=== PATIENT | male | born 1965 | race Caucasian/White ===

== ENCOUNTER → 2018-02-04 11:59 | Outpatient (CLI) | payer OTHER, SELFPAY ==
[2018-02-04 12:39] LABS: Hemoglobin A1C% w Est Avg Glu 6.4 % (4.0-6.0)
== END ==
PROVIDERS: Family Provider Physical Medicine & Rehabilitation; PCP Physical Medicine & Rehabilitation; Visit Provider Physical Medicine & Rehabilitation
DX: E11.9 Type 2 diabetes mellitus without complications (principal)
CPT/HCPCS: 36415; 83036

== ENCOUNTER → 2018-05-24 07:57 | Outpatient (CLI) | payer OTHER, SELFPAY ==
--- NOTE | 2018-05-24 | DI.CT.S_ITS ---
PROCEDURE: CT CERVICAL SPINE WO CON INDICATIONS: NECK PAIN TECHNIQUE: Noncontrast 3 mm thick sections acquired from the skull base to the T4 level. Sagittal and coronal reformats were then constructed. For radiation dose reduction, the following was used: automated exposure control, adjustment of mA and/or kV according to patient size. COMPARISON: [facility], CT, C-SPINE WITH CONTRAST, 08/14/2016, 10:34. [facility], CT, C-SPINE WITHOUT CONTRAST, 06/18/2010, 10:46. [facility], CR, CERVICAL SPINE 4 OR 5 VIEWS, 07/07/2013, 10:12. [facility], CT, C-SPINE WITHOUT CONTRAST, 11/04/2015, 15:49. FINDINGS: Image quality: Excellent. Bones: No acute fractures or dislocations. Visualized superior ribs are intact. There is again seen anterior fixation hardware at the C6-C7 level. The fusion hardware is stable, without findings of failure or loosening. There is a disc spacer seen at C6-C7. There is a stable calcified/ossified focus again seen superior to the tip of the dens, which is attributed to remote trauma versus calcified soft tissues. Partially bridging anterior osteophytes are seen at C4-C5 and there are bridging anterior osteophyte at C5-C6. At C6-C7, there are posterior directed endplate osteophytes seen, as on series 2 image 45, with moderate central canal narrowing. Soft tissues: Prevertebral soft tissues are normal in thickness. No paravertebral hematomas. No apical pneumothoraces. IMPRESSION: Postoperative and degenerative changes are seen, which are similar to the prior CT. Dictated by: Mayank Fortune M.D. on 05/24/2018 at 8:33 Approved by: Mayank Fortune M.D. on 05/24/2018 at 8:41
== END ==
PROVIDERS: PCP Physical Medicine & Rehabilitation; Visit Provider Orthopaedic Surgery
DX: M54.2 Cervicalgia (principal); Z98.1 Arthrodesis status
CPT/HCPCS: 72125

== ENCOUNTER 2019-04-19 09:00 | Outpatient (RCR) | payer OTHER, SELFPAY ==
--- NOTE | 2018-10-05 16:49 | PT.OIE ---
Addendum entered and electronically signed by Kinjal Lopez, LATANYA 10/06/18 08:43: Late entry for 10/04/18 evaluation Original Note: Current Diagnoses Arthrodesis status (10/05/18) Provider Visit Care Team Role Provider Type Briseida Dominguez MD Attending Provider Physician Primary Care Provider Specialty: Physical Medicine and Rehab Address: [address] [place] [address], [id number] Email: Physical Therapy Initial Evaluation PT-OP-A Visit Information Start: 10/04/18 08:08 Freq: Status: Active Protocol: Document 10/04/18 11:20 [facility] (Rec: 10/04/18 11:54 [facility] [id number]) Out-Patient Physical Therapy Visit Information Visit Information Visit Type Initial Evaluation Visit Start Time 11:20 Visit Stop Time 12:10 Total Visit Minutes 50 Visit Number 1 Number of METALLURGICAL SPECIALIST Visits 0 Evaluation Information Evaluation Date 10/04/18 Precautions Precautions c/s fusion high irritability of symptoms PT-OP-B Current Condition Start: 10/04/18 08:08 Freq: Status: Active Protocol: Document 10/04/18 11:20 SAK (Rec: 10/04/18 11:54 [facility]AK [id number]) Current Condition History of Current Condition Onset Date 06/28/18 Current Complaints neck pain, weakness, activity intolerance History of Current Condition L and I claim injury date 10/23. Prior cervical spine fusion. On 06/28/18 removal of hardware C6-7 and fusion of C5-6. X-ray 09/30/18 showed good healing. Order for physical therapy 08/09/18, not seen until today due to insurance approval miscommunication. Prescription is for ROM to torso, pecs, shoulders, cervical spine as able, then strengthen. Reports unable to tolerate wearing cervical brace. Dysphagia issues since surgery , seeing ENT. Improved sensation in left hand since the surgery, previously numb. Patient reports since surgery with any exacerbation of pain he requires less time to decrease the symptoms. States has been doing some exercises recently at the pool : LE's only. Precautions; patient reports physician advised he use snorkel for any swimming, no other restrictions. Additionally reports TMJ injury sustained from [facility]NA[facility] eval prior to his surgery, not yet being treated for this injury. Treatment Goals Patient/Caregiver Goals Realistic exercise plan to continue after PT, know limitations. Prior Functional Status Baseline Function- ADL's Independent Baseline Function- Mobility Independent Baseline Function- Gait indep Personal Factors Other Personal Factors That May Effect DM, ESPINOSA, EYAK, jaw pain, memory Therapy/Recovery loss, TBI PT-OP-C Subjective Start: 10/04/18 08:08 Freq: Status: Active Protocol: Document 10/04/18 11:20 [facility] (Rec: 10/04/18 15:11 [facility] [id number]) Patient Questionnaires Neck Disability Index NDI Score 56 Neck Disability Index Impairment 40 to 59% Impaired (Score 20- 29) Quick Dash- Upper Extremity Quick Dash UE Score 61 Quick Dash UE Impairment 60 to 79% Impaired (Score 60- 79) PT-OP-G Mobility & Gait Start: 10/04/18 08:08 Freq: Status: Active Protocol: Document 10/04/18 11:20 [facility]AK (Rec: 10/04/18 15:11 [facility] [id number]) OP Gait Assessment Gait Gait Assistance Required: Independent Factors Limiting Gait Function Factors Limiting Gait Function Pain Comments Gait Comments Able to ambulate household and short community distances, requires frequent rest due to back pain. PT-OP-J Posture/Palpation/Skin Start: 10/04/18 08:08 Freq: Status: Active Protocol: Document 10/04/18 11:20 [facility] (Rec: 10/04/18 15:11 [facility] [id number]) Posture Evaluation Position Sitting Head/C-Spine Posture Forward Head T-Spine Posture Increased Kyphosis Shoulder Posture (R) Rounded (L) Forward Scapula Posture (L) Protracted (R) Protracted Arm Posture (L) Internally Rotated (R) Internally Rotated Comments Posture Comments mod Dowager's hump Palpation Assessment Location One Palpation Location upper traps, levator scap, subocciptal, rhomboids Palpation Findings Soft Tissue Tightness Muscle Guarding Tenderness Skin Assessment Incisional Assessment Incision Appearance/Comments well healed anterior neck with good scar mobility; patient reports he massages with oil every day. PT-OP-K Range of Motion Start: 10/04/18 08:08 Freq: Status: Active Protocol: Document 10/04/18 11:20 [facility]AK (Rec: 10/04/18 15:12 [facility] [id number]) Cervical Spine Range of Motion Cervical Spine Active Testing Position Sitting Flexion 25 Extension 8 Rotation Left 40 Rotation Right 37 Lateral Flexion Left 18 Lateral Flexion Right 24 ROM Limitations Soft Tissue Tightness Pain Shoulder Goniometric Range of Motion Shoulder Measured in Degrees Left Testing Position Sitting Internal Rotation Behind Back (text) lateral hip Right Shoulder ROM WFL Yes Testing Position Sitting Shoulder ROM Limitations Shoulder ROM Limitations Soft Tissue Tightness Pain PT-OP-M Strength Start: 10/04/18 08:08 Freq: Status: Active Protocol: Document 10/04/18 11:20 [facility] (Rec: 10/05/18 08:57 [facility] [id number]) Cervical Spine Strength Cervical Spine Manual Muscle Testing Reason Not Measured Orthopedic Precautions Pain Scapula Strength Scapula Manual Muscle Testing rupert Elevation (C4) 4- Good- Adduction 4- Good- Abduction 4- Good- Depression 4- Good- Shoulder Strength Shoulder Manual Muscle Testing rupert Reason Not Measured Orthopedic Precautions Elbow/Forearm Strength Elbow and Forearm Manual Muscle Testing rupert Flexion (C6) 4 Good Extension (C7) 4 Good PT-OP-Q Treatments Start: 10/04/18 08:08 Freq: Status: Active Protocol: Document 10/04/18 11:20 [facility] (Rec: 10/05/18 08:57 [facility] [id number]) Self-Care/Home Management Treatment Education Patient Education Home Exercise Program Other Education written program PT-OP-R Modalities Start: 10/04/18 08:08 Freq: Status: Active Protocol: Document 10/04/18 11:20 [facility] (Rec: 10/05/18 08:57 [facility] [id number]) Hot Pack/Cold Pack Treatment Cold Pack Location c/s Patient Position Hooklying Treatment Duration (minutes) 10 Patient Tolerance Good PT-OP-T Assessment and Plan Start: 10/04/18 08:08 Freq: Status: Active Protocol: Document 10/04/18 11:20 [facility] (Rec: 10/05/18 08:57 [facility] [id number]) Physical Therapy Assessment Rehab Potential Rehabilitation Potential Good Evaluation Complexity Number of Personal Factors/Comorbidities 3 or More Number of Body Systems Impaired 3 Clinical Presentation at Evaluation Evolving Impairments Impairments Activity Tolerance Pain Posture ROM Strength Other Concerns Barriers to Rehabilitation chronicity of pain Goals 5 Impairment postural dysfunction Short Term Goal (STG) Patient to be instructed in neutral postural alignment and body mechancis STG Duration 6 wks Snf Goal (LTG) Patient to demonstrate good understanding of posture and body mechanics principles for neck protection and optimal function in the home with ADL' s and with usual activities. LTG Duration 3 months 4 Impairment ROM and strength impairments in neck and shoulders Short Term Goal (STG) Instruct patient in aquatic exercise program and HEP STG Duration 6 wks Snf Goal (LTG) Patient will be independent with HEP and community-based exercise program LTG Duration 3 months 3 Impairment activity tolerance Short Term Goal (STG) Patient able to tolerate 45 min aquatic exercise program without an increase in pain for purposes of long-term pain management and fitness STG Duration 6 wks Treasury Representative Goal (LTG) Patient will be able to tolerate 45 min land-based exercise session with emphasis on postural correction, ROM, and strengthening without an increase in pain for purposes of long-term fitness and pain managment LTG Duration 3 months 2 Impairment Neck disability index score 56 % Short Term Goal (STG) Decrease disability index score to no greater than 35% STG Duration 6 wks Snf Goal (LTG) Decrease disability index score to no greater than 20% LTG Duration 3 months 1 Impairment neck pain Snf Goal (LTG) Pain no greater than 2/10 with usual activities LTG Duration 3 months Assessment Summary Assessment Patient presents s/p cervical spine fusion with decreased ROM and strength, activity intolerance, postural dysfunction, and pain. He is highly motivated to begin therapy and achieve the above goals and return to a more active lifestyle. He will benefit from both aquatic and land-based PT to help him improve his ROM, strength, posture, and overall activity tolerance and be independent in exercise program. Physical Therapy Plan Frequency and Duration Frequency of Treatment 2x/Week Duration of Treatment 2 months Plan of Care Start Date 10/04/18 Plan of Care End Date 12/04/18 Therapeutic Interventions Therapeutic Interventions Aquatic Therapy Home Exercise Program Manual Therapy Neuromuscular Re-education Patient/Caregiver Education Self-Care/Home Management Soft Tissue Mobilization Therapeutic Activities Therapeutic Exercises Modalities Cold Pack/Ice Massage Electric Stimulation Hot Packs Next Visit Focus/Plan Next Note Type Treatment Note Next Visit Plan Initiate aquatic therapy.
--- NOTE | 2018-10-06 08:39 | PT.OTN ---
Addendum entered and electronically signed by Kinjal Lopez, PT 10/06/18 08:42: Late entry for 10/05/18 Original Note: Current Diagnoses Arthrodesis status (10/05/18) Physical Therapy Treatment Note PT-OP-A Visit Information Start: 10/04/18 08:08 Freq: Status: Active Protocol: Document 10/04/18 11:20 [facility] (Rec: 10/04/18 11:54 [facility] [id number]) Out-Patient Physical Therapy Visit Information Visit Information Visit Type Initial Evaluation Visit Start Time 11:20 Visit Stop Time 12:10 Total Visit Minutes 50 Visit Number 1 Number of PHYSICAL THERAPY AIDES TEACHER Visits 0 Evaluation Information Evaluation Date 10/04/18 Precautions Precautions c/s fusion high irritability of symptoms PT-OP-B Current Condition Start: 10/04/18 08:08 Freq: Status: Active Protocol: Document 10/04/18 11:20 [facility]AK (Rec: 10/04/18 11:54 [facility] [id number]) Current Condition History of Current Condition Onset Date 06/28/18 Current Complaints neck pain, weakness, activity intolerance History of Current Condition L and I claim injury date 10/23. Prior cervical spine fusion. On 06/28/18 removal of hardware C6-7 and fusion of C5-6. X-ray 09/30/18 showed good healing. Order for physical therapy 08/09/18, not seen until today due to insurance approval miscommunication. Prescription is for ROM to torso, pecs, shoulders, cervical spine as able, then strengthen. Reports unable to tolerate wearing cervical brace. Dysphagia issues since surgery , seeing ENT. Improved sensation in left hand since the surgery, previously numb. Patient reports since surgery with any exacerbation of pain he requires less time to decrease the symptoms. States has been doing some exercises recently at the pool : LE's only. Precautions; patient reports physician advised he use snorkel for any swimming, no other restrictions. Additionally reports TMJ injury sustained from [facility] eval prior to his surgery, not yet being treated for this injury. Treatment Goals Patient/Caregiver Goals Realistic exercise plan to continue after PT, know limitations. Prior Functional Status Baseline Function- ADL's Independent Baseline Function- Mobility Independent Baseline Function- Gait indep Personal Factors Other Personal Factors That May Effect DM, ESPINOSA, [place] CHIN, jaw pain, memory Therapy/Recovery loss, TBI PT-OP-C Subjective Start: 10/04/18 08:08 Freq: Status: Active Protocol: Document 10/04/18 11:20 [facility] (Rec: 10/04/18 15:11 [facility] [id number]) Patient Questionnaires Neck Disability Index NDI Score 56 Neck Disability Index Impairment 40 to 59% Impaired (Score 20- 29) Quick Dash- Upper Extremity Quick Dash UE Score 61 Quick Dash UE Impairment 60 to 79% Impaired (Score 60- 79) PT-OP-G Mobility & Gait Start: 10/04/18 08:08 Freq: Status: Active Protocol: Document 10/04/18 11:20 [facility] (Rec: 10/04/18 15:11 [facility] [id number]) OP Gait Assessment Gait Gait Assistance Required: Independent Factors Limiting Gait Function Factors Limiting Gait Function Pain Comments Gait Comments Able to ambulate household and short community distances, requires frequent rest due to back pain. PT-OP-J Posture/Palpation/Skin Start: 10/04/18 08:08 Freq: Status: Active Protocol: Document 10/04/18 11:20 [facility] (Rec: 10/04/18 15:11 [facility] [id number]) Posture Evaluation Position Sitting Head/C-Spine Posture Forward Head T-Spine Posture Increased Kyphosis Shoulder Posture (R) Rounded (L) Forward Scapula Posture (L) Protracted (R) Protracted Arm Posture (L) Internally Rotated (R) Internally Rotated Comments Posture Comments mod Dowager's hump Palpation Assessment Location One Palpation Location upper traps, levator scap, subocciptal, rhomboids Palpation Findings Soft Tissue Tightness Muscle Guarding Tenderness Skin Assessment Incisional Assessment Incision Appearance/Comments well healed anterior neck with good scar mobility; patient reports he massages with oil every day. PT-OP-K Range of Motion Start: 10/04/18 08:08 Freq: Status: Active Protocol: Document 10/04/18 11:20 [facility] (Rec: 10/04/18 15:12 [facility] [id number]) Cervical Spine Range of Motion Cervical Spine Active Testing Position Sitting Flexion 25 Extension 8 Rotation Left 40 Rotation Right 37 Lateral Flexion Left 18 Lateral Flexion Right 24 ROM Limitations Soft Tissue Tightness Pain Shoulder Goniometric Range of Motion Shoulder Measured in Degrees Left Testing Position Sitting Internal Rotation Behind Back (text) lateral hip Right Shoulder ROM WFL Yes Testing Position Sitting Shoulder ROM Limitations Shoulder ROM Limitations Soft Tissue Tightness Pain PT-OP-M Strength Start: 10/04/18 08:08 Freq: Status: Active Protocol: Document 10/04/18 11:20 [facility] (Rec: 10/05/18 08:57 [facility] [id number]) Cervical Spine Strength Cervical Spine Manual Muscle Testing Reason Not Measured Orthopedic Precautions Pain Scapula Strength Scapula Manual Muscle Testing rupert Elevation (C4) 4- Good- Adduction 4- Good- Abduction 4- Good- Depression 4- Good- Shoulder Strength Shoulder Manual Muscle Testing rupert Reason Not Measured Orthopedic Precautions Elbow/Forearm Strength Elbow and Forearm Manual Muscle Testing rupert Flexion (C6) 4 Good Extension (C7) 4 Good PT-OP-Q Treatments Start: 10/04/18 08:08 Freq: Status: Active Protocol: Document 10/04/18 11:20 [facility] (Rec: 10/05/18 08:57 [facility] [id number]) Self-Care/Home Management Treatment Education Patient Education Home Exercise Program Other Education written program PT-OP-R Modalities Start: 10/04/18 08:08 Freq: Status: Active Protocol: Document 10/04/18 11:20 [facility] (Rec: 10/05/18 08:57 [facility] [id number]) Hot Pack/Cold Pack Treatment Cold Pack Location c/s Patient Position Hooklying Treatment Duration (minutes) 10 Patient Tolerance Good PT-OP-S Aquatic Treatment Start: 10/04/18 08:08 Freq: Status: Active Protocol: Document 10/06/18 08:31 [facility] (Rec: 10/06/18 08:38 [facility] [id number]) Aquatics Treatment Pool Entry/Exit Assistance Independent Water Walking september with opp knee touch Water Level Neck Level Level of Assistance Verbal Cues sideways with shld ab/ad Water Level Neck Level Level of Assistance Verbal Cues Backward walking with reverse breastroke UE's Water Level Neck Level Level of Assistance Verbal Cues forward with breastroke UE's Water Level Neck Level Level of Assistance Verbal Cues Upper Extremity Exercises shld circles Reps/Duration 10x2 Comments CW, CCW shld flex/ext Reps/Duration 10x hor ab/ad Water Level Neck Level Reps/Duration 10x Upper Extremity Stretches corner stretch Body Position Standing Water Level Chest Level Reps/Duration 2x Spinal Exercises cervical SB Body Position Standing Water Level Neck Level Reps/Duration 5x Comments painfree ROM cervical rotation Body Position Standing Equipment Neck Float Reps/Duration 5x Comments painfree ROM [place] Activities [place] Activities Bicycle Comments minimal UE use Swim Strokes supine flutter with gentle UE sculling Laps/Duration 5 min Comments slow Manual Techniques Aquatic Massage cervical spine, periscapular area, UT: supine with small noodle under LE's PT-OP-T Assessment and Plan Start: 10/04/18 08:08 Freq: Status: Active Protocol: Document 10/06/18 08:31 [facility] (Rec: 10/06/18 08:38 [facility] [id number]) Physical Therapy Assessment Rehab Potential Rehabilitation Potential Good Evaluation Complexity Number of Personal Factors/Comorbidities 3 or More Number of Body Systems Impaired 3 Clinical Presentation at Evaluation Evolving Impairments Impairments Activity Tolerance Pain Posture ROM Strength Other Concerns Barriers to Rehabilitation chronicity of pain Goals 5 Impairment postural dysfunction Short Term Goal (STG) Patient to be instructed in neutral postural alignment and body mechancis STG Duration 6 wks Care Home Goal (LTG) Patient to demonstrate good understanding of posture and body mechanics principles for neck protection and optimal function in the home with ADL' s and with usual activities. LTG Duration 3 months 4 Impairment ROM and strength impairments in neck and shoulders Short Term Goal (STG) Instruct patient in aquatic exercise program and HEP STG Duration 6 wks Oil Spraying Machine Operator Goal (LTG) Patient will be independent with HEP and community-based exercise program LTG Duration 3 months 3 Impairment activity tolerance Short Term Goal (STG) Patient able to tolerate 45 min aquatic exercise program without an increase in pain for purposes of long-term pain management and fitness STG Duration 6 wks Care Home Goal (LTG) Patient will be able to tolerate 45 min land-based exercise session with emphasis on postural correction, ROM, and strengthening without an increase in pain for purposes of long-term fitness and pain managment LTG Duration 3 months 2 Impairment Neck disability index score 56 % Short Term Goal (STG) Decrease disability index score to no greater than 35% STG Duration 6 wks Care Home Goal (LTG) Decrease disability index score to no greater than 20% LTG Duration 3 months 1 Impairment neck pain Care Home Goal (LTG) Pain no greater than 2/10 with usual activities LTG Duration 3 months Assessment Summary Assessment Patient requires mod cues for postural alignment and stab, cues to stay within pain-free ROM with gentle cervical spine ROM. UE's fatigued rapidly. Physical Therapy Plan Next Visit Focus/Plan Next Visit Plan ASsess response to first aquatic PT session, add rhythmic stabilization, prone crawl arms in water if obtains snorkel, water walk holding float posterior for anerior chest and cervical postural stretch. Progress with aquatic ex as tolerated with emphasis on postural stabilization
--- NOTE | 2018-10-07 14:24 | PT.OTN ---
Current Diagnoses Arthrodesis status (10/05/18) Physical Therapy Treatment Note PT-OP-A Visit Information Start: 10/04/18 08:08 Freq: Status: Active Protocol: Document 10/07/18 14:18 [facility] (Rec: 10/07/18 14:24 [facility] [id number]) Out-Patient Physical Therapy Visit Information Visit Information Visit Type Aquatic Treatment Note Visit Start Time 10:15 Visit Stop Time 11:00 Total Visit Minutes 45 Visit Number 3 Number of TALENT SPECIALIST Visits 0 Evaluation Information Evaluation Date 10/04/18 PT-OP-B Current Condition Start: 10/04/18 08:08 Freq: Status: Active Protocol: Document 10/04/18 11:20 [facility] (Rec: 10/04/18 11:54 [facility] [id number]) Current Condition History of Current Condition Onset Date 06/28/18 Current Complaints neck pain, weakness, activity intolerance History of Current Condition L and I claim injury date 10/23. Prior cervical spine fusion. On 06/28/18 removal of hardware C6-7 and fusion of C5-6. X-ray 09/30/18 showed good healing. Order for physical therapy 08/09/18, not seen until today due to insurance approval miscommunication. Prescription is for ROM to torso, pecs, shoulders, cervical spine as able, then strengthen. Reports unable to tolerate wearing cervical brace. Dysphagia issues since surgery , seeing ENT. Improved sensation in left hand since the surgery, previously numb. Patient reports since surgery with any exacerbation of pain he requires less time to decrease the symptoms. States has been doing some exercises recently at the pool : LE's only. Precautions; patient reports physician advised he use snorkel for any swimming, no other restrictions. 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 Treatment Goals Patient/Caregiver Goals Realistic exercise plan to continue after PT, know limitations. Prior Functional Status Baseline Function- ADL's Independent Baseline Function- Mobility Independent Baseline Function- Gait indep Personal Factors Other Personal Factors That May Effect DM, ESPINOSA, PAUMA, jaw pain, memory Therapy/Recovery loss, TBI PT-OP-C Subjective Start: 10/04/18 08:08 Freq: Status: Active Protocol: Document 10/07/18 14:18 [facility] (Rec: 10/07/18 14:24 [facility] [id number]) OP-PT Subjective Patient Comments Patient Comments Reports he felt good after first aquatic therapy session and is looking forward to more . Anxious to be able to work out more. PT-OP-G Mobility & Gait Start: 10/04/18 08:08 Freq: Status: Active Protocol: Document 10/04/18 11:20 [facility] (Rec: 10/04/18 15:11 [facility] [id number]) OP Gait Assessment Gait Gait Assistance Required: Independent Factors Limiting Gait Function Factors Limiting Gait Function Pain Comments Gait Comments Able to ambulate household and short community distances, requires frequent rest due to back pain. PT-OP-J Posture/Palpation/Skin Start: 10/04/18 08:08 Freq: Status: Active Protocol: Document 10/04/18 11:20 [facility] (Rec: 10/04/18 15:11 [facility] [id number]) Posture Evaluation Position Sitting Head/C-Spine Posture Forward Head T-Spine Posture Increased Kyphosis Shoulder Posture (R) Rounded (L) Forward Scapula Posture (L) Protracted (R) Protracted Arm Posture (L) Internally Rotated (R) Internally Rotated Comments Posture Comments mod Dowager's hump Palpation Assessment Location One Palpation Location upper traps, levator scap, subocciptal, rhomboids Palpation Findings Soft Tissue Tightness Muscle Guarding Tenderness Skin Assessment Incisional Assessment Incision Appearance/Comments well healed anterior neck with good scar mobility; patient reports he massages with oil every day. PT-OP-K Range of Motion Start: 10/04/18 08:08 Freq: Status: Active Protocol: Document 10/04/18 11:20 [facility] (Rec: 10/04/18 15:12 [facility] [id number]) Cervical Spine Range of Motion Cervical Spine Active Testing Position Sitting Flexion 25 Extension 8 Rotation Left 40 Rotation Right 37 Lateral Flexion Left 18 Lateral Flexion Right 24 ROM Limitations Soft Tissue Tightness Pain Shoulder Goniometric Range of Motion Shoulder Measured in Degrees Left Testing Position Sitting Internal Rotation Behind Back (text) lateral hip Right Shoulder ROM WFL Yes Testing Position Sitting Shoulder ROM Limitations Shoulder ROM Limitations Soft Tissue Tightness Pain PT-OP-M Strength Start: 10/04/18 08:08 Freq: Status: Active Protocol: Document 10/04/18 11:20 [facility] (Rec: 10/05/18 08:57 [facility] [id number]) Cervical Spine Strength Cervical Spine Manual Muscle Testing Reason Not Measured Orthopedic Precautions Pain Scapula Strength Scapula Manual Muscle Testing rupert Elevation (C4) 4- Good- Adduction 4- Good- Abduction 4- Good- Depression 4- Good- Shoulder Strength Shoulder Manual Muscle Testing rupert Reason Not Measured Orthopedic Precautions Elbow/Forearm Strength Elbow and Forearm Manual Muscle Testing rupert Flexion (C6) 4 Good Extension (C7) 4 Good PT-OP-Q Treatments Start: 10/04/18 08:08 Freq: Status: Active Protocol: Document 10/04/18 11:20 [facility] (Rec: 10/05/18 08:57 [facility] [id number]) Self-Care/Home Management Treatment Education Patient Education Home Exercise Program Other Education written program PT-OP-R Modalities Start: 10/04/18 08:08 Freq: Status: Active Protocol: Document 10/04/18 11:20 [facility] (Rec: 10/05/18 08:57 [facility] [id number]) Hot Pack/Cold Pack Treatment Cold Pack Location c/s Patient Position Hooklying Treatment Duration (minutes) 10 Patient Tolerance Good PT-OP-S Aquatic Treatment Start: 10/04/18 08:08 Freq: Status: Active Protocol: Document 10/07/18 14:18 [facility] (Rec: 10/07/18 14:24 [facility] [id number]) Aquatics Treatment Pool Entry/Exit Assistance Independent Water Walking straight leg march with straight UE's Water Level Neck Level Level of Assistance Verbal Cues march with opp knee touch Water Level Neck Level Level of Assistance Verbal Cues sideways with shld ab/ad Water Level Neck Level Level of Assistance Verbal Cues Backward walking with reverse breastroke UE's Water Level Neck Level Level of Assistance Verbal Cues forward with breastroke UE's Water Level Neck Level Level of Assistance Verbal Cues Upper Extremity Exercises shld IR/ER Water Level Neck Level Reps/Duration 10x shld circles Reps/Duration 10x2 Comments CW, CCW shld flex/ext Reps/Duration 10x hor ab/ad Water Level Neck Level Reps/Duration 10x Upper Extremity Stretches corner stretch Body Position Standing Water Level Chest Level Reps/Duration 2x Spinal Exercises deep water hang Details at pool edge, with deep breathing Body Position Standing Water Level [place] Reps/Duration 1' x 2 cervical SB Body Position Standing Water Level Neck Level Reps/Duration 5x Comments painfree ROM cervical rotation Body Position Standing Equipment Neck Float Reps/Duration 5x Comments painfree ROM [place] Activities [place] Activities Bicycle Other Activities also bicycle forward with small barbells in hands down at hips. Equipment flotation belt, small barbells Comments with UE use Swim Strokes sidestroke Laps/Duration 15m Comments cues to relax head into water supine flutter with gentle UE sculling Laps/Duration 5 min Comments slow Manual Techniques [place] for gentle cervical and thoracic ROM (small noodle under LE's) Aquatic Massage cervical spine, periscapular area, UT: supine with small noodle under LE's PT-OP-T Assessment and Plan Start: 10/04/18 08:08 Freq: Status: Active Protocol: Document 10/07/18 14:18 [facility] (Rec: 10/07/18 14:24 [facility] [id number]) Physical Therapy Assessment Rehab Potential Rehabilitation Potential Good Evaluation Complexity Number of Personal Factors/Comorbidities 3 or More Number of Body Systems Impaired 3 Clinical Presentation at Evaluation Evolving Impairments Impairments Activity Tolerance Pain Posture ROM Strength Other Concerns Barriers to Rehabilitation chronicity of pain Goals 5 Impairment postural dysfunction Short Term Goal (STG) Patient to be instructed in neutral postural alignment and body mechancis STG Duration 6 wks Laser Beam Trim Operator Goal (LTG) Patient to demonstrate good understanding of posture and body mechanics principles for neck protection and optimal function in the home with ADL' s and with usual activities. LTG Duration 3 months 4 Impairment ROM and strength impairments in neck and shoulders Short Term Goal (STG) Instruct patient in aquatic exercise program and HEP STG Duration 6 wks Laser Beam Trim Operator Goal (LTG) Patient will be independent with HEP and community-based exercise program LTG Duration 3 months 3 Impairment activity tolerance Short Term Goal (STG) Patient able to tolerate 45 min aquatic exercise program without an increase in pain for purposes of long-term pain management and fitness STG Duration 6 wks Custodial Goal (LTG) Patient will be able to tolerate 45 min land-based exercise session with emphasis on postural correction, ROM, and strengthening without an increase in pain for purposes of long-term fitness and pain managment LTG Duration 3 months 2 Impairment Neck disability index score 56 % Short Term Goal (STG) Decrease disability index score to no greater than 35% STG Duration 6 wks Laser Beam Trim Operator Goal (LTG) Decrease disability index score to no greater than 20% LTG Duration 3 months 1 Impairment neck pain Laser Beam Trim Operator Goal (LTG) Pain no greater than 2/10 with usual activities LTG Duration 3 months Assessment Summary Assessment Improved tolerance for aquatic exercise today with decreased fatigue of UE's. Physical Therapy Plan Frequency and Duration Frequency of Treatment 2x/Week Duration of Treatment 2 months Plan of Care Start Date 10/04/18 Plan of Care End Date 12/04/18 Therapeutic Interventions Therapeutic Interventions Aquatic Therapy Home Exercise Program Manual Therapy Neuromuscular Re-education Patient/Caregiver Education Self-Care/Home Management Soft Tissue Mobilization Therapeutic Activities Therapeutic Exercises Modalities Cold Pack/Ice Massage Electric Stimulation Hot Packs Next Visit Focus/Plan Next Note Type Progress Note Next Visit Plan Add rhythmic stabilization, prone crawl arms in water if obtains snorkel, water walk holding float posterior for anerior chest and cervical postural stretch. Progress with aquatic ex as tolerated with emphasis on postural stabilization
--- NOTE | 2018-10-10 15:08 | PT.OTN ---
Current Diagnoses Arthrodesis status (10/10/18) Physical Therapy Treatment Note PT-OP-A Visit Information Start: 10/04/18 08:08 Freq: Status: Active Protocol: Document 10/10/18 10:15 [facility] (Rec: 10/10/18 15:08 [facility] [id number]) Out-Patient Physical Therapy Visit Information Visit Information Visit Type Aquatic Treatment Note Visit Note Pt arrived early and performed water walking and LE exercises. Visit Start Time 10:15 Visit Stop Time 11:00 Total Visit Minutes 45 Visit Number 3 PT-OP-B Current Condition Start: 10/04/18 08:08 Freq: Status: Active Protocol: Document 10/04/18 11:20 [facility] (Rec: 10/04/18 11:54 [facility] [id number]) Current Condition History of Current Condition Onset Date 06/28/18 Current Complaints neck pain, weakness, activity intolerance History of Current Condition L and I claim injury date 10/23. Prior cervical spine fusion. On 06/28/18 removal of hardware C6-7 and fusion of C5-6. X-ray 09/30/18 showed good healing. Order for physical therapy 08/09/18, not seen until today due to insurance approval miscommunication. Prescription is for ROM to torso, pecs, shoulders, cervical spine as able, then strengthen. Reports unable to tolerate wearing cervical brace. Dysphagia issues since surgery , seeing ENT. Improved sensation in left hand since the surgery, previously numb. Patient reports since surgery with any exacerbation of pain he requires less time to decrease the symptoms. States has been doing some exercises recently at the pool : LE's only. Precautions; patient reports physician advised he use snorkel for any swimming, no other restrictions. Additionally reports TMJ injury sustained from [facility]HNA[facility] eval prior to his surgery, not yet being treated for this injury. Treatment Goals Patient/Caregiver Goals Realistic exercise plan to continue after PT, know limitations. Prior Functional Status Baseline Function- ADL's Independent Baseline Function- Mobility Independent Baseline Function- Gait indep Personal Factors Other Personal Factors That May Effect DM, ESPINOSA, [place], jaw pain, memory Therapy/Recovery loss, TBI PT-OP-C Subjective Start: 10/04/18 08:08 Freq: Status: Active Protocol: Document 10/10/18 10:15 [facility] (Rec: 10/10/18 15:08 [facility] [id number]) OP-PT Subjective Patient Comments Patient Comments Pt reports feeling great. PT-OP-G Mobility & Gait Start: 10/04/18 08:08 Freq: Status: Active Protocol: Document 10/04/18 11:20 [facility] (Rec: 10/04/18 15:11 [facility] [id number]) OP Gait Assessment Gait Gait Assistance Required: Independent Factors Limiting Gait Function Factors Limiting Gait Function Pain Comments Gait Comments Able to ambulate household and short community distances, requires frequent rest due to back pain. PT-OP-J Posture/Palpation/Skin Start: 10/04/18 08:08 Freq: Status: Active Protocol: Document 10/04/18 11:20 [facility] (Rec: 10/04/18 15:11 [facility] [id number]) Posture Evaluation Position Sitting Head/C-Spine Posture Forward Head T-Spine Posture Increased Kyphosis Shoulder Posture (R) Rounded (L) Forward Scapula Posture (L) Protracted (R) Protracted Arm Posture (L) Internally Rotated (R) Internally Rotated Comments Posture Comments mod Dowager's hump Palpation Assessment Location One Palpation Location upper traps, levator scap, subocciptal, rhomboids Palpation Findings Soft Tissue Tightness Muscle Guarding Tenderness Skin Assessment Incisional Assessment Incision Appearance/Comments well healed anterior neck with good scar mobility; patient reports he massages with oil every day. PT-OP-K Range of Motion Start: 10/04/18 08:08 Freq: Status: Active Protocol: Document 10/04/18 11:20 [facility] (Rec: 10/04/18 15:12 [facility] [id number]) Cervical Spine Range of Motion Cervical Spine Active Testing Position Sitting Flexion 25 Extension 8 Rotation Left 40 Rotation Right 37 Lateral Flexion Left 18 Lateral Flexion Right 24 ROM Limitations Soft Tissue Tightness Pain Shoulder Goniometric Range of Motion Shoulder Measured in Degrees Left Testing Position Sitting Internal Rotation Behind Back (text) lateral hip Right Shoulder ROM WFL Yes Testing Position Sitting Shoulder ROM Limitations Shoulder ROM Limitations Soft Tissue Tightness Pain PT-OP-M Strength Start: 10/04/18 08:08 Freq: Status: Active Protocol: Document 10/04/18 11:20 [facility] (Rec: 10/05/18 08:57 [facility] [id number]) Cervical Spine Strength Cervical Spine Manual Muscle Testing Reason Not Measured Orthopedic Precautions Pain Scapula Strength Scapula Manual Muscle Testing rupert Elevation (C4) 4- Good- Adduction 4- Good- Abduction 4- Good- Depression 4- Good- Shoulder Strength Shoulder Manual Muscle Testing rupert Reason Not Measured Orthopedic Precautions Elbow/Forearm Strength Elbow and Forearm Manual Muscle Testing rupert Flexion (C6) 4 Good Extension (C7) 4 Good PT-OP-Q Treatments Start: 10/04/18 08:08 Freq: Status: Active Protocol: Document 10/04/18 11:20 [facility] (Rec: 10/05/18 08:57 [facility] [id number]) Self-Care/Home Management Treatment Education Patient Education Home Exercise Program Other Education written program PT-OP-R Modalities Start: 10/04/18 08:08 Freq: Status: Active Protocol: Document 10/04/18 11:20 [facility] (Rec: 10/05/18 08:57 [facility] [id number]) Hot Pack/Cold Pack Treatment Cold Pack Location c/s Patient Position Hooklying Treatment Duration (minutes) 10 Patient Tolerance Good PT-OP-S Aquatic Treatment Start: 10/04/18 08:08 Freq: Status: Active Protocol: Document 10/10/18 10:15 [facility] (Rec: 10/10/18 15:08 [facility] [id number]) Aquatics Treatment Pool Entry/Exit Assistance Independent Lower Extremity Exercises stationary bike Body Position Sitting Water Level Chest Level Equipment bike Reps/Duration 5 minutes Comments cues for posture Upper Extremity Exercises shld IR/ER Water Level Neck Level Reps/Duration 10x shld circles Reps/Duration 10x2 Comments CW, CCW shld flex/ext Details dumbbells Body Position Standing Water Level Chest Level Reps/Duration 10x Comments single/double hor ab/ad Water Level Neck Level Reps/Duration 10x Upper Extremity Stretches corner stretch Body Position Standing Water Level Chest Level Reps/Duration 2x Spinal Exercises deep water hang Details at pool edge, with deep breathing Body Position Standing Water Level [place] Reps/Duration 1' x 2 cervical SB Body Position Standing Water Level Neck Level Reps/Duration 5x Comments painfree ROM cervical rotation Body Position Standing Equipment Neck Float Reps/Duration 5x Comments painfree ROM [place] Activities [place] Activities Bicycle Other Activities also bicycle forward with small barbells in hands down at hips. Equipment flotation belt, small barbells Comments with UE use Swim Strokes sidestroke Laps/Duration 15m Comments cues to relax head into water supine flutter with gentle UE sculling Laps/Duration 5 min Comments slow PT-OP-T Assessment and Plan Start: 10/04/18 08:08 Freq: Status: Active Protocol: Document 10/10/18 10:15 [facility] (Rec: 10/10/18 15:08 [facility] [id number]) Physical Therapy Assessment Goals 5 Impairment postural dysfunction Short Term Goal (STG) Patient to be instructed in neutral postural alignment and body mechancis STG Duration 6 wks Comsec Manager Goal (LTG) Patient to demonstrate good understanding of posture and body mechanics principles for neck protection and optimal function in the home with ADL' s and with usual activities. LTG Duration 3 months 4 Impairment ROM and strength impairments in neck and shoulders Short Term Goal (STG) Instruct patient in aquatic exercise program and HEP STG Duration 6 wks Senior Living Goal (LTG) Patient will be independent with HEP and community-based exercise program LTG Duration 3 months 3 Impairment activity tolerance Short Term Goal (STG) Patient able to tolerate 45 min aquatic exercise program without an increase in pain for purposes of long-term pain management and fitness STG Duration 6 wks Senior Living Goal (LTG) Patient will be able to tolerate 45 min land-based exercise session with emphasis on postural correction, ROM, and strengthening without an increase in pain for purposes of long-term fitness and pain managment LTG Duration 3 months 2 Impairment Neck disability index score 56 % Short Term Goal (STG) Decrease disability index score to no greater than 35% STG Duration 6 wks Comsec Manager Goal (LTG) Decrease disability index score to no greater than 20% LTG Duration 3 months 1 Impairment neck pain Senior Living Goal (LTG) Pain no greater than 2/10 with usual activities LTG Duration 3 months Assessment Summary Assessment Pt continues to tolerate aquatic therapy well. Physical Therapy Plan Frequency and Duration Frequency of Treatment 2x/Week Duration of Treatment 2 months Plan of Care Start Date 10/04/18 Plan of Care End Date 12/04/18 Next Visit Focus/Plan Next Visit Plan Add rhythmic stabilization, prone crawl arms in water if obtains snorkel, water walk holding float posterior for anerior chest and cervical postural stretch. Progress with aquatic ex as tolerated with emphasis on postural stabilization
--- NOTE | 2018-10-14 13:56 | PT.OTN ---
Current Diagnoses Arthrodesis status (10/10/18) Physical Therapy Treatment Note PT-OP-A Visit Information Start: 10/04/18 08:08 Freq: Status: Active Protocol: Document 10/14/18 10:15 JANETT (Rec: 10/14/18 13:56 LJ [email or web address]) Out-Patient Physical Therapy Visit Information Visit Information Visit Note Pt arrived early and performed water walking and LE exercises. Visit Start Time 10:15 Visit Stop Time 11:00 Total Visit Minutes 45 Visit Number 2 PT-OP-B Current Condition Start: 10/04/18 08:08 Freq: Status: Active Protocol: Document 10/04/18 11:20 SAK (Rec: 10/04/18 11:54 SAK [id number]) Current Condition History of Current Condition Onset Date 06/28/18 Current Complaints neck pain, weakness, activity intolerance History of Current Condition L and I claim injury date 10/23. Prior cervical spine fusion. On 06/28/18 removal of hardware C6-7 and fusion of C5-6. X-ray 09/30/18 showed good healing. Order for physical therapy 08/09/18, not seen until today due to insurance approval miscommunication. Prescription is for ROM to torso, pecs, shoulders, cervical spine as able, then strengthen. Reports unable to tolerate wearing cervical brace. Dysphagia issues since surgery , seeing ENT. Improved sensation in left hand since the surgery, previously numb. Patient reports since surgery with any exacerbation of pain he requires less time to decrease the symptoms. States has been doing some exercises recently at the pool : LE's only. Precautions; patient reports physician advised he use snorkel for any swimming, no other restrictions. 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 Treatment Goals Patient/Caregiver Goals Realistic exercise plan to continue after PT, know limitations. Prior Functional Status Baseline Function- ADL's Independent Baseline Function- Mobility Independent Baseline Function- Gait indep Personal Factors Other Personal Factors That May Effect DM, [place], [place], jaw pain, memory Therapy/Recovery loss, TBI PT-OP-C Subjective Start: 10/04/18 08:08 Freq: Status: Active Protocol: Document 10/14/18 10:15 JANETT (Rec: 10/14/18 13:56 JANETT [email or web address]) OP-PT Subjective Patient Comments Patient Comments Pt requesting HEP for use after d/c from pool schedule. States he is feeling good and wants to work out with increased intensity PT-OP-G Mobility & Gait Start: 10/04/18 08:08 Freq: Status: Active Protocol: Document 10/04/18 11:20 [facility] (Rec: 10/04/18 15:11 [facility] [id number]) OP Gait Assessment Gait Gait Assistance Required: Independent Factors Limiting Gait Function Factors Limiting Gait Function Pain Comments Gait Comments Able to ambulate household and short community distances, requires frequent rest due to back pain. PT-OP-J Posture/Palpation/Skin Start: 10/04/18 08:08 Freq: Status: Active Protocol: Document 10/04/18 11:20 [facility] (Rec: 10/04/18 15:11 [facility] [id number]) Posture Evaluation Position Sitting Head/C-Spine Posture Forward Head T-Spine Posture Increased Kyphosis Shoulder Posture (R) Rounded (L) Forward Scapula Posture (L) Protracted (R) Protracted Arm Posture (L) Internally Rotated (R) Internally Rotated Comments Posture Comments mod Dowager's hump Palpation Assessment Location One Palpation Location upper traps, levator scap, subocciptal, rhomboids Palpation Findings Soft Tissue Tightness Muscle Guarding Tenderness Skin Assessment Incisional Assessment Incision Appearance/Comments well healed anterior neck with good scar mobility; patient reports he massages with oil every day. PT-OP-K Range of Motion Start: 10/04/18 08:08 Freq: Status: Active Protocol: Document 10/04/18 11:20 [facility] (Rec: 10/04/18 15:12 [facility] [id number]) Cervical Spine Range of Motion Cervical Spine Active Testing Position Sitting Flexion 25 Extension 8 Rotation Left 40 Rotation Right 37 Lateral Flexion Left 18 Lateral Flexion Right 24 ROM Limitations Soft Tissue Tightness Pain Shoulder Goniometric Range of Motion Shoulder Measured in Degrees Left Testing Position Sitting Internal Rotation Behind Back (text) lateral hip Right Shoulder ROM WFL Yes Testing Position Sitting Shoulder ROM Limitations Shoulder ROM Limitations Soft Tissue Tightness Pain PT-OP-M Strength Start: 10/04/18 08:08 Freq: Status: Active Protocol: Document 10/04/18 11:20 [facility] (Rec: 10/05/18 08:57 [facility] [id number]) Cervical Spine Strength Cervical Spine Manual Muscle Testing Reason Not Measured Orthopedic Precautions Pain Scapula Strength Scapula Manual Muscle Testing rupert Elevation (C4) 4- Good- Adduction 4- Good- Abduction 4- Good- Depression 4- Good- Shoulder Strength Shoulder Manual Muscle Testing rupert Reason Not Measured Orthopedic Precautions Elbow/Forearm Strength Elbow and Forearm Manual Muscle Testing rupert Flexion (C6) 4 Good Extension (C7) 4 Good PT-OP-Q Treatments Start: 10/04/18 08:08 Freq: Status: Active Protocol: Document 10/04/18 11:20 SAK (Rec: 10/05/18 08:57 SAK [id number]) Self-Care/Home Management Treatment Education Patient Education Home Exercise Program Other Education written program PT-OP-R Modalities Start: 10/04/18 08:08 Freq: Status: Active Protocol: Document 10/04/18 11:20 SAK (Rec: 10/05/18 08:57 SAK [id number]) Hot Pack/Cold Pack Treatment Cold Pack Location c/s Patient Position Hooklying Treatment Duration (minutes) 10 Patient Tolerance Good PT-OP-S Aquatic Treatment Start: 10/04/18 08:08 Freq: Status: Active Protocol: Document 10/14/18 10:15 LJ (Rec: 10/14/18 13:56 LJ [email or web address]) Aquatics Treatment Pool Entry/Exit Assistance Independent Water Walking straight leg march with straight UE's Water Level Neck Level Walking Equipment Resistance Fins Level of Assistance Verbal Cues Comments UE paddles sideways with shld ab/ad Water Level Neck Level Walking Equipment Resistance Fins Level of Assistance Verbal Cues Comments UE paddles Backward walking with reverse breastroke UE's Water Level Neck Level Walking Equipment Resistance Fins Level of Assistance Verbal Cues Comments UE paddles forward with breastroke UE's Water Level Neck Level Walking Equipment Resistance Fins Level of Assistance Verbal Cues Comments UE paddles Upper Extremity Exercises shld IR/ER Water Level Neck Level Reps/Duration 10x 2 Comments blue fins, green aqualogix bells shld circles Reps/Duration 10x2 Comments CW, CCW; fins and bells as above shld flex/ext Body Position Standing Water Level Chest Level Reps/Duration 10x Comments equipment as above hor ab/ad Water Level Neck Level Reps/Duration 10x2 Comments equipment as above Upper Extremity Stretches forward walking w/UE paddles Water Level Neck Level Equipment UE paddles Reps/Duration 30 M varying depths corner stretch Body Position Standing Water Level Chest Level Reps/Duration 2x Spinal Exercises cervical SB Body Position Standing Water Level Neck Level Reps/Duration 5x Comments painfree ROM cervical rotation Body Position Standing Equipment Neck Float Reps/Duration 5x Comments painfree ROM [place] Activities Other Activities bike, ski, abd/add, crossovers , v sit bike, pendulum, lateral pulldowns 10 sec increments Equipment flotation belt, med barbells Swim Strokes sidestroke Laps/Duration 15m Chi Chi Duration (Minutes) 5 PT-OP-T Assessment and Plan Start: 10/04/18 08:08 Freq: Status: Active Protocol: Document 10/14/18 10:15 JANETT (Rec: 10/14/18 13:56 JANETT [email or web address]) Physical Therapy Assessment Rehab Potential Rehabilitation Potential Good Evaluation Complexity Number of Personal Factors/Comorbidities 3 or More Number of Body Systems Impaired 3 Clinical Presentation at Evaluation Evolving Impairments Impairments Activity Tolerance Pain Posture ROM Strength Other Concerns Barriers to Rehabilitation chronicity of pain Goals 5 Impairment postural dysfunction Short Term Goal (STG) Patient to be instructed in neutral postural alignment and body mechancis STG Duration 6 wks Computer Discovery Teacher Goal (LTG) Patient to demonstrate good understanding of posture and body mechanics principles for neck protection and optimal function in the home with ADL' s and with usual activities. LTG Duration 3 months 4 Impairment ROM and strength impairments in neck and shoulders Short Term Goal (STG) Instruct patient in aquatic exercise program and HEP STG Duration 6 wks Group Home Goal (LTG) Patient will be independent with HEP and community-based exercise program LTG Duration 3 months 3 Impairment activity tolerance Short Term Goal (STG) Patient able to tolerate 45 min aquatic exercise program without an increase in pain for purposes of long-term pain management and fitness STG Duration 6 wks Group Home Goal (LTG) Patient will be able to tolerate 45 min land-based exercise session with emphasis on postural correction, ROM, and strengthening without an increase in pain for purposes of long-term fitness and pain managment LTG Duration 3 months 2 Impairment Neck disability index score 56 % Short Term Goal (STG) Decrease disability index score to no greater than 35% STG Duration 6 wks Group Home Goal (LTG) Decrease disability index score to no greater than 20% LTG Duration 3 months 1 Impairment neck pain Group Home Goal (LTG) Pain no greater than 2/10 with usual activities LTG Duration 3 months Assessment Summary Assessment Pt continues to tolerate aquatic therapy well. Given HEP and discussed program to begin with using equipment at the pool. Discussed types of snorkels and mask to use for front crawl stroke. Physical Therapy Plan Frequency and Duration Frequency of Treatment 2x/Week Duration of Treatment 2 months Plan of Care Start Date 10/04/18 Plan of Care End Date 12/04/18 Therapeutic Interventions Therapeutic Interventions Aquatic Therapy Home Exercise Program Manual Therapy Neuromuscular Re-education Patient/Caregiver Education Self-Care/Home Management Soft Tissue Mobilization Therapeutic Activities Therapeutic Exercises Modalities Cold Pack/Ice Massage Electric Stimulation Hot Packs Next Visit Focus/Plan Next Note Type Treatment Note Next Visit Plan Continue with slow progressions of intensity and core stabilization with aquatic therapy. Add additional strengthening exercses as tolerated.
--- NOTE | 2018-10-18 14:08 | PT.OTN ---
Current Diagnoses Arthrodesis status (10/18/18) Physical Therapy Treatment Note PT-OP-A Visit Information Start: 10/04/18 08:08 Freq: Status: Active Protocol: Document 10/18/18 13:51 SA (Rec: 10/18/18 14:08 SA [email or web address]) Out-Patient Physical Therapy Visit Information Visit Information Visit Type Treatment Note Visit Number 5 Number of EXHAUSTER Visits 3 PT-OP-B Current Condition Start: 10/04/18 08:08 Freq: Status: Active Protocol: Document 10/04/18 11:20 SAK (Rec: 10/04/18 11:54 SAK [id number]) Current Condition History of Current Condition Onset Date 06/28/18 Current Complaints neck pain, weakness, activity intolerance History of Current Condition L and I claim injury date 10/23. Prior cervical spine fusion. On 06/28/18 removal of hardware C6-7 and fusion of C5-6. X-ray 09/30/18 showed good healing. Order for physical therapy 08/09/18, not seen until today due to insurance approval miscommunication. Prescription is for ROM to torso, pecs, shoulders, cervical spine as able, then strengthen. Reports unable to tolerate wearing cervical brace. Dysphagia issues since surgery , seeing ENT. Improved sensation in left hand since the surgery, previously numb. Patient reports since surgery with any exacerbation of pain he requires less time to decrease the symptoms. States has been doing some exercises recently at the pool : LE's only. Precautions; patient reports physician advised he use snorkel for any swimming, no other restrictions. Additionally reports TMJ injury sustained from MAHNAZArturo draper prior to his surgery, not yet being treated for this injury. Treatment Goals Patient/Caregiver Goals Realistic exercise plan to continue after PT, know limitations. Prior Functional Status Baseline Function- ADL's Independent Baseline Function- Mobility Independent Baseline Function- Gait indep Personal Factors Other Personal Factors That May Effect DM, [place], [place], jaw pain, memory Therapy/Recovery loss, TBI PT-OP-C Subjective Start: 10/04/18 08:08 Freq: Status: Active Protocol: Document 10/18/18 13:51 SA (Rec: 10/18/18 14:08 SA [email or web address]) OP-PT Subjective Patient Comments Patient Comments Pt reports feeling pretty good , is happy about getting feeling back in hand, motivated to get stronger and transition to gym work outs. PT-OP-G Mobility & Gait Start: 10/04/18 08:08 Freq: Status: Active Protocol: Document 10/04/18 11:20 [facility] (Rec: 10/04/18 15:11 [facility] [id number]) OP Gait Assessment Gait Gait Assistance Required: Independent Factors Limiting Gait Function Factors Limiting Gait Function Pain Comments Gait Comments Able to ambulate household and short community distances, requires frequent rest due to back pain. PT-OP-J Posture/Palpation/Skin Start: 10/04/18 08:08 Freq: Status: Active Protocol: Document 10/04/18 11:20 [facility] (Rec: 10/04/18 15:11 [facility] [id number]) Posture Evaluation Position Sitting Head/C-Spine Posture Forward Head T-Spine Posture Increased Kyphosis Shoulder Posture (R) Rounded (L) Forward Scapula Posture (L) Protracted (R) Protracted Arm Posture (L) Internally Rotated (R) Internally Rotated Comments Posture Comments mod Dowager's hump Palpation Assessment Location One Palpation Location upper traps, levator scap, subocciptal, rhomboids Palpation Findings Soft Tissue Tightness Muscle Guarding Tenderness Skin Assessment Incisional Assessment Incision Appearance/Comments well healed anterior neck with good scar mobility; patient reports he massages with oil every day. PT-OP-K Range of Motion Start: 10/04/18 08:08 Freq: Status: Active Protocol: Document 10/04/18 11:20 [facility] (Rec: 10/04/18 15:12 [facility] [id number]) Cervical Spine Range of Motion Cervical Spine Active Testing Position Sitting Flexion 25 Extension 8 Rotation Left 40 Rotation Right 37 Lateral Flexion Left 18 Lateral Flexion Right 24 ROM Limitations Soft Tissue Tightness Pain Shoulder Goniometric Range of Motion Shoulder Measured in Degrees Left Testing Position Sitting Internal Rotation Behind Back (text) lateral hip Right Shoulder ROM WFL Yes Testing Position Sitting Shoulder ROM Limitations Shoulder ROM Limitations Soft Tissue Tightness Pain PT-OP-M Strength Start: 10/04/18 08:08 Freq: Status: Active Protocol: Document 10/04/18 11:20 [facility] (Rec: 10/05/18 08:57 [facility] [id number]) Cervical Spine Strength Cervical Spine Manual Muscle Testing Reason Not Measured Orthopedic Precautions Pain Scapula Strength Scapula Manual Muscle Testing rupert Elevation (C4) 4- Good- Adduction 4- Good- Abduction 4- Good- Depression 4- Good- Shoulder Strength Shoulder Manual Muscle Testing rupert Reason Not Measured Orthopedic Precautions Elbow/Forearm Strength Elbow and Forearm Manual Muscle Testing rupert Flexion (C6) 4 Good Extension (C7) 4 Good PT-OP-Q Treatments Start: 10/04/18 08:08 Freq: Status: Active Protocol: Document 10/18/18 13:51 SA (Rec: 10/18/18 14:08 SA [email or web address]) Cardio Equipment Recumbent Stepper (Sci-Fit) Duration (Minutes) 7 Resistance 2.0 Gym Equipment Shuttle Recovery Unilateral Squats Resistance 50# Shuttle Recovery Platform Stable Reps/Time 2 x 10 Bilateral Squats Resistance 100# Shuttle Recovery Platform Stable Reps/Time 2 x 10 Shuttle Balance Dynamic balance training Details Red chain Reps/Duration 5 min Comments NBOS, tandem, head turns, weighted ball toss with core set. Therapeutic Ball Pelvic clocks Ball Size/Color 65 cm Body Position Sitting Reps/Duration 10x each Comments clock/counterclock brink Seated marching Ball Size/Color 65 cm Body Position Sitting Reps/Duration 2 x 10 Comments Core engagement, cues for slow pace Therapeutic Exercises Supine Exercises 90/90 Abdominal press Resistance self resisted Reps/Minutes 5 x 10 Comments pain free Standing Exercises Wall psture stretch Side bilateral Reps/Minutes 30 x 2 Comments Cues for form/posture Scapular Rows Side bilateral Resistance #2 TB Reps/Minutes 2 x 10 Comments Cues for posture Manual Therapy Treatment Soft Tissue Mobilization STM/MFR Body Location L Interscap Mobilization Type Myofascial Release Trigger Point Release Intensity/Depth Moderate Body Position Sidelying PT-OP-R Modalities Start: 10/04/18 08:08 Freq: Status: Active Protocol: Document 10/04/18 11:20 SAK (Rec: 10/05/18 08:57 SAK [id number]) Hot Pack/Cold Pack Treatment Cold Pack Location c/s Patient Position Hooklying Treatment Duration (minutes) 10 Patient Tolerance Good PT-OP-S Aquatic Treatment Start: 10/04/18 08:08 Freq: Status: Active Protocol: Document 10/14/18 10:15 LJ (Rec: 10/14/18 13:56 LJ [email or web address]) Aquatics Treatment Pool Entry/Exit Assistance Independent Water Walking straight leg march with straight UE's Water Level Neck Level Walking Equipment Resistance Fins Level of Assistance Verbal Cues Comments UE paddles sideways with shld ab/ad Water Level Neck Level Walking Equipment Resistance Fins Level of Assistance Verbal Cues Comments UE paddles Backward walking with reverse breastroke UE's Water Level Neck Level Walking Equipment Resistance Fins Level of Assistance Verbal Cues Comments UE paddles forward with breastroke UE's Water Level Neck Level Walking Equipment Resistance Fins Level of Assistance Verbal Cues Comments UE paddles Upper Extremity Exercises shld IR/ER Water Level Neck Level Reps/Duration 10x 2 Comments blue fins, green aqualogix bells shld circles Reps/Duration 10x2 Comments CW, CCW; fins and bells as above shld flex/ext Body Position Standing Water Level Chest Level Reps/Duration 10x Comments equipment as above hor ab/ad Water Level Neck Level Reps/Duration 10x2 Comments equipment as above Upper Extremity Stretches forward walking w/UE paddles Water Level Neck Level Equipment UE paddles Reps/Duration 30 M varying depths corner stretch Body Position Standing Water Level Chest Level Reps/Duration 2x Spinal Exercises cervical SB Body Position Standing Water Level Neck Level Reps/Duration 5x Comments painfree ROM cervical rotation Body Position Standing Equipment Neck Float Reps/Duration 5x Comments painfree ROM [place] Activities Other Activities bike, ski, abd/add, crossovers , v sit bike, pendulum, lateral pulldowns 10 sec increments Equipment flotation belt, med barbells Swim Strokes sidestroke Laps/Duration 15m Chi Chi Duration (Minutes) 5 PT-OP-T Assessment and Plan Start: 10/04/18 08:08 Freq: Status: Active Protocol: Document 10/18/18 13:51 (Rec: 10/18/18 14:08 [email or web address]) Physical Therapy Assessment Assessment Summary Assessment Pt tolerated new ther ex well, denied cervical or low back pain with activity. Given 90/ 90 and PT ball exercises for HEP. Physical Therapy Plan Next Visit Focus/Plan Next Note Type Treatment Note Next Visit Plan Continue to progress core stability and LE strengthening program. Assess response to this visit.
--- NOTE | 2018-10-25 15:28 | PT.OTN ---
Current Diagnoses Arthrodesis status (10/25/18) Physical Therapy Treatment Note PT-OP-A Visit Information Start: 10/04/18 08:08 Freq: Status: Active Protocol: Document 10/25/18 15:18 SA (Rec: 10/25/18 15:28 SA [email or web address]) Out-Patient Physical Therapy Visit Information Visit Information Visit Type Treatment Note Visit Start Time 10:30 Visit Stop Time 11:14 Total Visit Minutes 44 Visit Number 6 Number of LIVING SUPERVISOR Visits 4 PT-OP-B Current Condition Start: 10/04/18 08:08 Freq: Status: Active Protocol: Document 10/04/18 11:20 SAK (Rec: 10/04/18 11:54 SAK [id number]) Current Condition History of Current Condition Onset Date 06/28/18 Current Complaints neck pain, weakness, activity intolerance History of Current Condition L and I claim injury date 10/23. Prior cervical spine fusion. On 06/28/18 removal of hardware C6-7 and fusion of C5-6. X-ray 09/30/18 showed good healing. Order for physical therapy 08/09/18, not seen until today due to insurance approval miscommunication. Prescription is for ROM to torso, pecs, shoulders, cervical spine as able, then strengthen. Reports unable to tolerate wearing cervical brace. Dysphagia issues since surgery , seeing ENT. Improved sensation in left hand since the surgery, previously numb. Patient reports since surgery with any exacerbation of pain he requires less time to decrease the symptoms. States has been doing some exercises recently at the pool : LE's only. Precautions; patient reports physician advised he use snorkel for any swimming, no other restrictions. Additionally reports TMJ injury sustained from MANHAZ draper prior to his surgery, not yet being treated for this injury. Treatment Goals Patient/Caregiver Goals Realistic exercise plan to continue after PT, know limitations. Prior Functional Status Baseline Function- ADL's Independent Baseline Function- Mobility Independent Baseline Function- Gait indep Personal Factors Other Personal Factors That May Effect DM, [place], [place], jaw pain, memory Therapy/Recovery loss, TBI PT-OP-C Subjective Start: 10/04/18 08:08 Freq: Status: Active Protocol: Document 10/25/18 15:18 SA (Rec: 10/25/18 15:28 SA [email or web address]) OP-PT Subjective Patient Comments Patient Comments PT reports continued progress, tolerating exercise progresssions well and is consistent with HEP. PT-OP-G Mobility & Gait Start: 10/04/18 08:08 Freq: Status: Active Protocol: Document 10/04/18 11:20 [facility] (Rec: 10/04/18 15:11 [facility] [id number]) OP Gait Assessment Gait Gait Assistance Required: Independent Factors Limiting Gait Function Factors Limiting Gait Function Pain Comments Gait Comments Able to ambulate household and short community distances, requires frequent rest due to back pain. PT-OP-J Posture/Palpation/Skin Start: 10/04/18 08:08 Freq: Status: Active Protocol: Document 10/04/18 11:20 [facility] (Rec: 10/04/18 15:11 [facility] [id number]) Posture Evaluation Position Sitting Head/C-Spine Posture Forward Head T-Spine Posture Increased Kyphosis Shoulder Posture (R) Rounded (L) Forward Scapula Posture (L) Protracted (R) Protracted Arm Posture (L) Internally Rotated (R) Internally Rotated Comments Posture Comments mod Dowager's hump Palpation Assessment Location One Palpation Location upper traps, levator scap, subocciptal, rhomboids Palpation Findings Soft Tissue Tightness Muscle Guarding Tenderness Skin Assessment Incisional Assessment Incision Appearance/Comments well healed anterior neck with good scar mobility; patient reports he massages with oil every day. PT-OP-K Range of Motion Start: 10/04/18 08:08 Freq: Status: Active Protocol: Document 10/04/18 11:20 [facility] (Rec: 10/04/18 15:12 [facility] [id number]) Cervical Spine Range of Motion Cervical Spine Active Testing Position Sitting Flexion 25 Extension 8 Rotation Left 40 Rotation Right 37 Lateral Flexion Left 18 Lateral Flexion Right 24 ROM Limitations Soft Tissue Tightness Pain Shoulder Goniometric Range of Motion Shoulder Measured in Degrees Left Testing Position Sitting Internal Rotation Behind Back (text) lateral hip Right Shoulder ROM WFL Yes Testing Position Sitting Shoulder ROM Limitations Shoulder ROM Limitations Soft Tissue Tightness Pain PT-OP-M Strength Start: 10/04/18 08:08 Freq: Status: Active Protocol: Document 10/04/18 11:20 [facility] (Rec: 10/05/18 08:57 [facility] [id number]) Cervical Spine Strength Cervical Spine Manual Muscle Testing Reason Not Measured Orthopedic Precautions Pain Scapula Strength Scapula Manual Muscle Testing rupert Elevation (C4) 4- Good- Adduction 4- Good- Abduction 4- Good- Depression 4- Good- Shoulder Strength Shoulder Manual Muscle Testing rupert Reason Not Measured Orthopedic Precautions Elbow/Forearm Strength Elbow and Forearm Manual Muscle Testing rupert Flexion (C6) 4 Good Extension (C7) 4 Good PT-OP-Q Treatments Start: 10/04/18 08:08 Freq: Status: Active Protocol: Document 10/25/18 15:18 SA (Rec: 10/25/18 15:28 SA [email or web address]) Cardio Equipment Recumbent Elliptical (BiodPetta) Duration (Minutes) 7 Resistance 7 Gym Equipment Shuttle Recovery Unilateral Squats Resistance 50# Shuttle Recovery Platform Stable Reps/Time 2 x 15 Bilateral Squats Resistance 100# Shuttle Recovery Platform Stable Reps/Time 2 x 15 Therapeutic Ball weighted ball PNF pattern Ball Size/Color 65 cm ball 4# weighted ball Body Position Sitting Reps/Duration 12 x each Comments UE diagonals Seated marching Ball Size/Color 65 cm Body Position Sitting Reps/Duration 2 x 10 Comments core engagement, alternating arm/leg Therapeutic Exercises Supine Exercises 90/90 Abdominal press Resistance self resisted Reps/Minutes 5 x 10 Comments pain free Standing Exercises Gastroc/soleus stretch Side bilateral Equipment Used CRISTEL Reps/Minutes 30 x 2 Wall psture stretch Side bilateral Reps/Minutes 30 x 2 Comments Cues for form/posture Scapular Rows Side bilateral Resistance 3# TB Equipment Used with squat Reps/Minutes 2 x 10 Comments Cues for posture Other Exercises lunge walk Side bilateral Equipment Used at bar Reps/Minutes 4 lengths Comments cues for core Manual Therapy Treatment Soft Tissue Mobilization STM/MFR Body Location L Interscap Mobilization Type Myofascial Release Trigger Point Release Intensity/Depth Moderate Body Position Sidelying PT-OP-R Modalities Start: 10/04/18 08:08 Freq: Status: Active Protocol: Document 10/04/18 11:20 SAK (Rec: 10/05/18 08:57 SAK [id number]) Hot Pack/Cold Pack Treatment Cold Pack Location c/s Patient Position Hooklying Treatment Duration (minutes) 10 Patient Tolerance Good PT-OP-S Aquatic Treatment Start: 10/04/18 08:08 Freq: Status: Active Protocol: Document 10/14/18 10:15 LJ (Rec: 10/14/18 13:56 LJ [email or web address]) Aquatics Treatment Pool Entry/Exit Assistance Independent Water Walking straight leg march with straight UE's Water Level Neck Level Walking Equipment Resistance Fins Level of Assistance Verbal Cues Comments UE paddles sideways with shld ab/ad Water Level Neck Level Walking Equipment Resistance Fins Level of Assistance Verbal Cues Comments UE paddles Backward walking with reverse breastroke UE's Water Level Neck Level Walking Equipment Resistance Fins Level of Assistance Verbal Cues Comments UE paddles forward with breastroke UE's Water Level Neck Level Walking Equipment Resistance Fins Level of Assistance Verbal Cues Comments UE paddles Upper Extremity Exercises shld IR/ER Water Level Neck Level Reps/Duration 10x 2 Comments blue fins, green aqualogix bells shld circles Reps/Duration 10x2 Comments CW, CCW; fins and bells as above shld flex/ext Body Position Standing Water Level Chest Level Reps/Duration 10x Comments equipment as above hor ab/ad Water Level Neck Level Reps/Duration 10x2 Comments equipment as above Upper Extremity Stretches forward walking w/UE paddles Water Level Neck Level Equipment UE paddles Reps/Duration 30 M varying depths corner stretch Body Position Standing Water Level Chest Level Reps/Duration 2x Spinal Exercises cervical SB Body Position Standing Water Level Neck Level Reps/Duration 5x Comments painfree ROM cervical rotation Body Position Standing Equipment Neck Float Reps/Duration 5x Comments painfree ROM [place] Activities Other Activities bike, ski, abd/add, crossovers , v sit bike, pendulum, lateral pulldowns 10 sec increments Equipment flotation belt, med barbells Swim Strokes sidestroke Laps/Duration 15m Chi Chi Duration (Minutes) 5 PT-OP-T Assessment and Plan Start: 10/04/18 08:08 Freq: Status: Active Protocol: Document 10/25/18 15:18 (Rec: 10/25/18 15:28 [email or web address]) Physical Therapy Assessment Assessment Summary Assessment Added calf stretching to HEP as pt had c/o cramping. Educated pt on exercise moderation and not over doing it. Pt is very motivated and progressing well but tends to overdo things. Physical Therapy Plan Next Visit Focus/Plan Next Note Type Treatment Note Next Visit Plan Continue to progress core stability and LE strengthening program. Assess response to this visit.
--- NOTE | 2018-10-28 11:32 | PT.OTN ---
Current Diagnoses Arthrodesis status (10/28/18) Physical Therapy Treatment Note PT-OP-A Visit Information Start: 10/04/18 08:08 Freq: Status: Active Protocol: Document 10/28/18 11:23 SA (Rec: 10/28/18 11:32 SA [email or web address]) Out-Patient Physical Therapy Visit Information Visit Information Visit Type Treatment Note Visit Start Time 08:15 Visit Stop Time 09:01 Total Visit Minutes 46 Visit Number 7 Number of INDUSTRIAL AUTOMATION ENGINEER Visits 5 PT-OP-B Current Condition Start: 10/04/18 08:08 Freq: Status: Active Protocol: Document 10/04/18 11:20 SAK (Rec: 10/04/18 11:54 SAK [id number]) Current Condition History of Current Condition Onset Date 06/28/18 Current Complaints neck pain, weakness, activity intolerance History of Current Condition L and I claim injury date 10/23. Prior cervical spine fusion. On 06/28/18 removal of hardware C6-7 and fusion of C5-6. X-ray 09/30/18 showed good healing. Order for physical therapy 08/09/18, not seen until today due to insurance approval miscommunication. Prescription is for ROM to torso, pecs, shoulders, cervical spine as able, then strengthen. Reports unable to tolerate wearing cervical brace. Dysphagia issues since surgery , seeing ENT. Improved sensation in left hand since the surgery, previously numb. Patient reports since surgery with any exacerbation of pain he requires less time to decrease the symptoms. States has been doing some exercises recently at the pool : LE's only. Precautions; patient reports physician advised he use snorkel for any swimming, no other restrictions. 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 Treatment Goals Patient/Caregiver Goals Realistic exercise plan to continue after PT, know limitations. Prior Functional Status Baseline Function- ADL's Independent Baseline Function- Mobility Independent Baseline Function- Gait indep Personal Factors Other Personal Factors That May Effect DM, [place], [place], jaw pain, memory Therapy/Recovery loss, TBI PT-OP-C Subjective Start: 10/04/18 08:08 Freq: Status: Active Protocol: Document 10/28/18 11:23 SA (Rec: 10/28/18 11:32 SA [email or web address]) OP-PT Subjective Patient Comments Patient Comments Pt reports his interscapular area is very sore and may want to skip STM. PT-OP-G Mobility & Gait Start: 10/04/18 08:08 Freq: Status: Active Protocol: Document 10/04/18 11:20 [facility] (Rec: 10/04/18 15:11 [facility] [id number]) OP Gait Assessment Gait Gait Assistance Required: Independent Factors Limiting Gait Function Factors Limiting Gait Function Pain Comments Gait Comments Able to ambulate household and short community distances, requires frequent rest due to back pain. PT-OP-J Posture/Palpation/Skin Start: 10/04/18 08:08 Freq: Status: Active Protocol: Document 10/04/18 11:20 [facility] (Rec: 10/04/18 15:11 [facility] [id number]) Posture Evaluation Position Sitting Head/C-Spine Posture Forward Head T-Spine Posture Increased Kyphosis Shoulder Posture (R) Rounded (L) Forward Scapula Posture (L) Protracted (R) Protracted Arm Posture (L) Internally Rotated (R) Internally Rotated Comments Posture Comments mod Dowager's hump Palpation Assessment Location One Palpation Location upper traps, levator scap, subocciptal, rhomboids Palpation Findings Soft Tissue Tightness Muscle Guarding Tenderness Skin Assessment Incisional Assessment Incision Appearance/Comments well healed anterior neck with good scar mobility; patient reports he massages with oil every day. PT-OP-K Range of Motion Start: 10/04/18 08:08 Freq: Status: Active Protocol: Document 10/04/18 11:20 [facility] (Rec: 10/04/18 15:12 [facility] [id number]) Cervical Spine Range of Motion Cervical Spine Active Testing Position Sitting Flexion 25 Extension 8 Rotation Left 40 Rotation Right 37 Lateral Flexion Left 18 Lateral Flexion Right 24 ROM Limitations Soft Tissue Tightness Pain Shoulder Goniometric Range of Motion Shoulder Measured in Degrees Left Testing Position Sitting Internal Rotation Behind Back (text) lateral hip Right Shoulder ROM WFL Yes Testing Position Sitting Shoulder ROM Limitations Shoulder ROM Limitations Soft Tissue Tightness Pain PT-OP-M Strength Start: 10/04/18 08:08 Freq: Status: Active Protocol: Document 10/04/18 11:20 [facility] (Rec: 10/05/18 08:57 [facility] [id number]) Cervical Spine Strength Cervical Spine Manual Muscle Testing Reason Not Measured Orthopedic Precautions Pain Scapula Strength Scapula Manual Muscle Testing rupert Elevation (C4) 4- Good- Adduction 4- Good- Abduction 4- Good- Depression 4- Good- Shoulder Strength Shoulder Manual Muscle Testing rupert Reason Not Measured Orthopedic Precautions Elbow/Forearm Strength Elbow and Forearm Manual Muscle Testing rupert Flexion (C6) 4 Good Extension (C7) 4 Good PT-OP-Q Treatments Start: 10/04/18 08:08 Freq: Status: Active Protocol: Document 10/28/18 11:23 SA (Rec: 10/28/18 11:32 SA [email or web address]) Cardio Equipment Recumbent Stepper (Sci-Fit) Duration (Minutes) 7 Resistance 2.5 Gym Equipment Shuttle Recovery Unilateral Squats Resistance 50# Shuttle Recovery Platform Stable Reps/Time 2 x 15 Bilateral Squats Resistance 100# Shuttle Recovery Platform Stable Reps/Time 2 x 15 Shuttle Balance Dynamic balance training Details Blue chain Reps/Duration 5 min Comments NBOS, tandem, weighted ball toss and squats with ball with core set. Therapeutic Ball THoracic EXT stretch Ball Size/Color 65 cm Body Position Supine Reps/Duration 30 x 2 weighted ball PNF pattern Ball Size/Color 65 cm ball 4# weighted ball Body Position Sitting Reps/Duration 12 x each Comments UE diagonals Therapeutic Exercises Standing Exercises Gastroc/soleus stretch Side bilateral Equipment Used CRISTEL Reps/Minutes 30 x 2 Wall psture stretch Side bilateral Reps/Minutes 30 x 2 Scapular Rows Side bilateral Resistance 3# TB Equipment Used with squat Reps/Minutes 2 x 10 Comments Cues for posture Other Exercises lateral stepping with squat Side bilateral Resistance Yellow TB Equipment Used at bar Reps/Minutes 4 lengths lunge walk Side bilateral Equipment Used at bar Reps/Minutes 4 lengths Comments cues for core PT-OP-R Modalities Start: 10/04/18 08:08 Freq: Status: Active Protocol: Document 10/04/18 11:20 SAK (Rec: 10/05/18 08:57 SAK [id number]) Hot Pack/Cold Pack Treatment Cold Pack Location c/s Patient Position Hooklying Treatment Duration (minutes) 10 Patient Tolerance Good PT-OP-S Aquatic Treatment Start: 10/04/18 08:08 Freq: Status: Active Protocol: Document 10/14/18 10:15 JANETT (Rec: 10/14/18 13:56 LJ [email or web address]) Aquatics Treatment Pool Entry/Exit Assistance Independent Water Walking straight leg march with straight UE's Water Level Neck Level Walking Equipment Resistance Fins Level of Assistance Verbal Cues Comments UE paddles sideways with shld ab/ad Water Level Neck Level Walking Equipment Resistance Fins Level of Assistance Verbal Cues Comments UE paddles Backward walking with reverse breastroke UE's Water Level Neck Level Walking Equipment Resistance Fins Level of Assistance Verbal Cues Comments UE paddles forward with breastroke UE's Water Level Neck Level Walking Equipment Resistance Fins Level of Assistance Verbal Cues Comments UE paddles Upper Extremity Exercises shld IR/ER Water Level Neck Level Reps/Duration 10x 2 Comments blue fins, green aqualogix bells shld circles Reps/Duration 10x2 Comments CW, CCW; fins and bells as above shld flex/ext Body Position Standing Water Level Chest Level Reps/Duration 10x Comments equipment as above hor ab/ad Water Level Neck Level Reps/Duration 10x2 Comments equipment as above Upper Extremity Stretches forward walking w/UE paddles Water Level Neck Level Equipment UE paddles Reps/Duration 30 M varying depths corner stretch Body Position Standing Water Level Chest Level Reps/Duration 2x Spinal Exercises cervical SB Body Position Standing Water Level Neck Level Reps/Duration 5x Comments painfree ROM cervical rotation Body Position Standing Equipment Neck Float Reps/Duration 5x Comments painfree ROM [place] Activities Other Activities bike, ski, abd/add, crossovers , v sit bike, pendulum, lateral pulldowns 10 sec increments Equipment flotation belt, med barbells Swim Strokes sidestroke Laps/Duration 15m Chi Chi Duration (Minutes) 5 PT-OP-T Assessment and Plan Start: 10/04/18 08:08 Freq: Status: Active Protocol: Document 10/28/18 11:23 (Rec: 10/28/18 11:32 [email or web address]) Physical Therapy Assessment Assessment Summary Assessment Pt provided with new stretching for interscap to add to HEP and continue with strengthening program that he is tolerating well. Physical Therapy Plan Next Visit Focus/Plan Next Note Type Treatment Note Next Visit Plan Assess response to new exercise, progress core stability/strengthening program.
--- NOTE | 2018-10-31 15:42 | PT.OTN ---
Current Diagnoses Arthrodesis status (10/31/18) Physical Therapy Treatment Note PT-OP-A Visit Information Start: 10/04/18 08:08 Freq: Status: Active Protocol: Document 10/31/18 08:18 [facility] (Rec: 10/31/18 09:02 [facility] [id number]) Out-Patient Physical Therapy Visit Information Visit Information Visit Type Treatment Note Visit Start Time 08:15 Visit Stop Time 09:01 Total Visit Minutes 44 Visit Number 9 Number of RIDING COACH Visits 0 PT-OP-B Current Condition Start: 10/04/18 08:08 Freq: Status: Active Protocol: Document 10/04/18 11:20 SAK (Rec: 10/04/18 11:54 [facility] [id number]) Current Condition History of Current Condition Onset Date 06/28/18 Current Complaints neck pain, weakness, activity intolerance History of Current Condition L and I claim injury date 10/23. Prior cervical spine fusion. On 06/28/18 removal of hardware C6-7 and fusion of C5-6. X-ray 09/30/18 showed good healing. Order for physical therapy 08/09/18, not seen until today due to insurance approval miscommunication. Prescription is for ROM to torso, pecs, shoulders, cervical spine as able, then strengthen. Reports unable to tolerate wearing cervical brace. Dysphagia issues since surgery , seeing ENT. Improved sensation in left hand since the surgery, previously numb. Patient reports since surgery with any exacerbation of pain he requires less time to decrease the symptoms. States has been doing some exercises recently at the pool : LE's only. Precautions; patient reports physician advised he use snorkel for any swimming, no other restrictions. 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 Treatment Goals Patient/Caregiver Goals Realistic exercise plan to continue after PT, know limitations. Prior Functional Status Baseline Function- ADL's Independent Baseline Function- Mobility Independent Baseline Function- Gait indep Personal Factors Other Personal Factors That May Effect DM, [place], [place], jaw pain, memory Therapy/Recovery loss, TBI PT-OP-C Subjective Start: 10/04/18 08:08 Freq: Status: Active Protocol: Document 10/31/18 08:18 [facility]AK (Rec: 10/31/18 09:02 [facility] [id number]) OP-PT Subjective Patient Comments Patient Comments Patient reports LB soreness due to doing too much including PT and at home. Requests no squatting activities today. Going to the pool on his own, walking, doing HEP. PT-OP-G Mobility & Gait Start: 10/04/18 08:08 Freq: Status: Active Protocol: Document 10/04/18 11:20 [facility] (Rec: 10/04/18 15:11 [facility] [id number]) OP Gait Assessment Gait Gait Assistance Required: Independent Factors Limiting Gait Function Factors Limiting Gait Function Pain Comments Gait Comments Able to ambulate household and short community distances, requires frequent rest due to back pain. PT-OP-J Posture/Palpation/Skin Start: 10/04/18 08:08 Freq: Status: Active Protocol: Document 10/04/18 11:20 [facility] (Rec: 10/04/18 15:11 [facility] [id number]) Posture Evaluation Position Sitting Head/C-Spine Posture Forward Head T-Spine Posture Increased Kyphosis Shoulder Posture (R) Rounded (L) Forward Scapula Posture (L) Protracted (R) Protracted Arm Posture (L) Internally Rotated (R) Internally Rotated Comments Posture Comments mod Dowager's hump Palpation Assessment Location One Palpation Location upper traps, levator scap, subocciptal, rhomboids Palpation Findings Soft Tissue Tightness Muscle Guarding Tenderness Skin Assessment Incisional Assessment Incision Appearance/Comments well healed anterior neck with good scar mobility; patient reports he massages with oil every day. PT-OP-K Range of Motion Start: 10/04/18 08:08 Freq: Status: Active Protocol: Document 10/04/18 11:20 [facility] (Rec: 10/04/18 15:12 [facility] [id number]) Cervical Spine Range of Motion Cervical Spine Active Testing Position Sitting Flexion 25 Extension 8 Rotation Left 40 Rotation Right 37 Lateral Flexion Left 18 Lateral Flexion Right 24 ROM Limitations Soft Tissue Tightness Pain Shoulder Goniometric Range of Motion Shoulder Measured in Degrees Left Testing Position Sitting Internal Rotation Behind Back (text) lateral hip Right Shoulder ROM WFL Yes Testing Position Sitting Shoulder ROM Limitations Shoulder ROM Limitations Soft Tissue Tightness Pain PT-OP-M Strength Start: 10/04/18 08:08 Freq: Status: Active Protocol: Document 10/04/18 11:20 [facility] (Rec: 10/05/18 08:57 [facility] [id number]) Cervical Spine Strength Cervical Spine Manual Muscle Testing Reason Not Measured Orthopedic Precautions Pain Scapula Strength Scapula Manual Muscle Testing rupert Elevation (C4) 4- Good- Adduction 4- Good- Abduction 4- Good- Depression 4- Good- Shoulder Strength Shoulder Manual Muscle Testing rupert Reason Not Measured Orthopedic Precautions Elbow/Forearm Strength Elbow and Forearm Manual Muscle Testing rupert Flexion (C6) 4 Good Extension (C7) 4 Good PT-OP-Q Treatments Start: 10/04/18 08:08 Freq: Status: Active Protocol: Document 10/31/18 08:18 [facility]AK (Rec: 10/31/18 09:02 [facility] [id number]) Cardio Equipment Recumbent Stepper (Sci-Fit) Duration (Minutes) 8 Resistance 2.5 Seat Position 11 Gym Equipment Cable Column (Body Solid) Lat pull Resistance 30 Reps/Time 2x15 Shuttle Balance Dynamic balance training Details Blue chain Reps/Duration 10 min Comments NBOS, tandem, weighted ball toss and sh ER, hor ab with L2 TB Therapeutic Exercises Supine Exercises posture press Reps/Minutes 5x Comments legs supported at 90 deg on 65cm ball Standing Exercises bicep curls Resistance 5# rupert Reps/Minutes 15x2 shoulder ext Resistance L3 TB Reps/Minutes 10x2 Gastroc/soleus stretch Side bilateral Equipment Used CRISTEL Reps/Minutes 30 x 2 Wall psture stretch Side bilateral Reps/Minutes 30 x 2 Scapular Rows Side bilateral Resistance 3# TB Equipment Used with squat Reps/Minutes 2 x 10 Comments Cues for posture Other Exercises child's pose Reps/Minutes 3x Comments forward and lat, incorporating deep breathing cat/cow Reps/Minutes 6x Comments incorporating deep breathing PT-OP-R Modalities Start: 10/04/18 08:08 Freq: Status: Active Protocol: Document 10/04/18 11:20 [facility]AK (Rec: 10/05/18 08:57 [facility] [id number]) Hot Pack/Cold Pack Treatment Cold Pack Location c/s Patient Position Hooklying Treatment Duration (minutes) 10 Patient Tolerance Good PT-OP-S Aquatic Treatment Start: 10/04/18 08:08 Freq: Status: Active Protocol: Document 10/14/18 10:15 LJ (Rec: 10/14/18 13:56 LJ [id number]) Aquatics Treatment Pool Entry/Exit Assistance Independent Water Walking straight leg march with straight UE's Water Level Neck Level Walking Equipment Resistance Fins Level of Assistance Verbal Cues Comments UE paddles sideways with shld ab/ad Water Level Neck Level Walking Equipment Resistance Fins Level of Assistance Verbal Cues Comments UE paddles Backward walking with reverse breastroke UE's Water Level Neck Level Walking Equipment Resistance Fins Level of Assistance Verbal Cues Comments UE paddles forward with breastroke UE's Water Level Neck Level Walking Equipment Resistance Fins Level of Assistance Verbal Cues Comments UE paddles Upper Extremity Exercises shld IR/ER Water Level Neck Level Reps/Duration 10x 2 Comments blue fins, green aqualogix bells shld circles Reps/Duration 10x2 Comments CW, CCW; fins and bells as above shld flex/ext Body Position Standing Water Level Chest Level Reps/Duration 10x Comments equipment as above hor ab/ad Water Level Neck Level Reps/Duration 10x2 Comments equipment as above Upper Extremity Stretches forward walking w/UE paddles Water Level Neck Level Equipment UE paddles Reps/Duration 30 M varying depths corner stretch Body Position Standing Water Level Chest Level Reps/Duration 2x Spinal Exercises cervical SB Body Position Standing Water Level Neck Level Reps/Duration 5x Comments painfree ROM cervical rotation Body Position Standing Equipment Neck Float Reps/Duration 5x Comments painfree ROM [place] Activities Other Activities bike, ski, abd/add, crossovers , v sit bike, pendulum, lateral pulldowns 10 sec increments Equipment flotation belt, med barbells Swim Strokes sidestroke Laps/Duration 15m Chi Chi Duration (Minutes) 5 PT-OP-T Assessment and Plan Start: 10/04/18 08:08 Freq: Status: Active Protocol: Document 10/31/18 08:18 NGUYỄN (Rec: 10/31/18 09:02 [facility] [id number]) Physical Therapy Assessment Goals 5 Impairment postural dysfunction Short Term Goal (STG) Patient to be instructed in neutral postural alignment and body mechancis STG Duration 6 wks Lockstitch Back Maker Goal (LTG) Patient to demonstrate good understanding of posture and body mechanics principles for neck protection and optimal function in the home with ADL' s and with usual activities. LTG Duration 3 months 4 Impairment ROM and strength impairments in neck and shoulders Short Term Goal (STG) Instruct patient in aquatic exercise program and HEP STG Duration 6 wks Longterm Goal (LTG) Patient will be independent with HEP and community-based exercise program LTG Duration 3 months 3 Impairment activity tolerance Short Term Goal (STG) Patient able to tolerate 45 min aquatic exercise program without an increase in pain for purposes of long-term pain management and fitness STG Duration 6 wks Longterm Goal (LTG) Patient will be able to tolerate 45 min land-based exercise session with emphasis on postural correction, ROM, and strengthening without an increase in pain for purposes of long-term fitness and pain managment LTG Duration 3 months 2 Impairment Neck disability index score 56 % Short Term Goal (STG) Decrease disability index score to no greater than 35% STG Duration 6 wks Longterm Goal (LTG) Decrease disability index score to no greater than 20% LTG Duration 3 months 1 Impairment neck pain Lockstitch Back Maker Goal (LTG) Pain no greater than 2/10 with usual activities LTG Duration 3 months Assessment Summary Assessment Patient benefited from increased emphasis on deep breathing and flexibility today. Continues to be highly motivated, compliant with HEP , aquatic exercise program. Physical Therapy Plan Frequency and Duration Frequency of Treatment 2x/Week Duration of Treatment 2 months Plan of Care Start Date 10/04/18 Plan of Care End Date 12/04/18 Therapeutic Interventions Therapeutic Interventions Aquatic Therapy Home Exercise Program Manual Therapy Neuromuscular Re-education Patient/Caregiver Education Self-Care/Home Management Soft Tissue Mobilization Therapeutic Activities Therapeutic Exercises Next Visit Focus/Plan Next Note Type Progress Note Next Visit Plan Assess response to new exercise, progress core stability/strengthening program.
--- NOTE | 2018-11-07 08:15 | PT.OTN ---
Current Diagnoses Arthrodesis status (11/03/18) Physical Therapy Treatment Note PT-OP-A Visit Information Start: 10/04/18 08:08 Freq: Status: Active Protocol: Document 11/03/18 11:15 [facility] (Rec: 11/07/18 07:59 [facility] [id number]) Out-Patient Physical Therapy Visit Information Visit Information Visit Type Treatment Note Visit Start Time 11:15 Visit Stop Time 12:00 Total Visit Minutes 45 Visit Number 10 Number of ZINC PLATER Visits 0 PT-OP-B Current Condition Start: 10/04/18 08:08 Freq: Status: Active Protocol: Document 10/04/18 11:20 [facility] (Rec: 10/04/18 11:54 [facility] [id number]) Current Condition History of Current Condition Onset Date 06/28/18 Current Complaints neck pain, weakness, activity intolerance History of Current Condition L and I claim injury date 10/23. Prior cervical spine fusion. On 06/28/18 removal of hardware C6-7 and fusion of C5-6. X-ray 09/30/18 showed good healing. Order for physical therapy 08/09/18, not seen until today due to insurance approval miscommunication. Prescription is for ROM to torso, pecs, shoulders, cervical spine as able, then strengthen. Reports unable to tolerate wearing cervical brace. Dysphagia issues since surgery , seeing ENT. Improved sensation in left hand since the surgery, previously numb. Patient reports since surgery with any exacerbation of pain he requires less time to decrease the symptoms. States has been doing some exercises recently at the pool : LE's only. Precautions; patient reports physician advised he use snorkel for any swimming, no other restrictions. 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 Treatment Goals Patient/Caregiver Goals Realistic exercise plan to continue after PT, know limitations. Prior Functional Status Baseline Function- ADL's Independent Baseline Function- Mobility Independent Baseline Function- Gait indep Personal Factors Other Personal Factors That May Effect DM, [place], [place], jaw pain, memory Therapy/Recovery loss, TBI PT-OP-C Subjective Start: 10/04/18 08:08 Freq: Status: Active Protocol: Document 11/03/18 11:15 SAK (Rec: 11/07/18 07:59 [facility] [id number]) OP-PT Subjective Patient Comments Patient Comments Reports very tired and is having some left bicep soreness for unknown reason. Reports intermittant right greater than left tingling below his knees. Neck pain unchanged but taking significantly less medications with pain remaining steady so patient overall reports feeling that is progress. Also reports improvement of now being able to reach behind his back with his left UE. PT-OP-G Mobility & Gait Start: 10/04/18 08:08 Freq: Status: Active Protocol: Document 10/04/18 11:20 [facility] (Rec: 10/04/18 15:11 [facility] [id number]) OP Gait Assessment Gait Gait Assistance Required: Independent Factors Limiting Gait Function Factors Limiting Gait Function Pain Comments Gait Comments Able to ambulate household and short community distances, requires frequent rest due to back pain. PT-OP-J Posture/Palpation/Skin Start: 10/04/18 08:08 Freq: Status: Active Protocol: Document 10/04/18 11:20 [facility] (Rec: 10/04/18 15:11 [facility] [id number]) Posture Evaluation Position Sitting Head/C-Spine Posture Forward Head T-Spine Posture Increased Kyphosis Shoulder Posture (R) Rounded (L) Forward Scapula Posture (L) Protracted (R) Protracted Arm Posture (L) Internally Rotated (R) Internally Rotated Comments Posture Comments mod Dowager's hump Palpation Assessment Location One Palpation Location upper traps, levator scap, subocciptal, rhomboids Palpation Findings Soft Tissue Tightness Muscle Guarding Tenderness Skin Assessment Incisional Assessment Incision Appearance/Comments well healed anterior neck with good scar mobility; patient reports he massages with oil every day. PT-OP-K Range of Motion Start: 10/04/18 08:08 Freq: Status: Active Protocol: Document 11/03/18 11:15 [facility] (Rec: 11/07/18 08:07 [facility] [id number]) Cervical Spine Range of Motion Cervical Spine Active Testing Position Sitting Flexion 33 Extension 17 Rotation Left 55 Rotation Right 45 Lateral Flexion Left 19 Lateral Flexion Right 25 Comments patient reported pain with all cervical motions, worst with extension and left sidebending . PT-OP-M Strength Start: 10/04/18 08:08 Freq: Status: Active Protocol: Document 11/03/18 11:15 [facility]AK (Rec: 11/07/18 08:10 [facility] [id number]) Cervical Spine Strength Cervical Spine Manual Muscle Testing Reason Not Measured Orthopedic Precautions Pain Shoulder Strength Shoulder Manual Muscle Testing rupert Flexion 4 Good Extension 4 Good Abduction (C5) 4- Good- External Rotation 4- Good- Internal Rotation 4 Good Elbow/Forearm Strength Elbow and Forearm Manual Muscle Testing rupert Flexion (C6) 4+ Good+ Extension (C7) 4+ Good+ Comments mild pain left PT-OP-Q Treatments Start: 10/04/18 08:08 Freq: Status: Active Protocol: Document 11/03/18 11:15 [facility]AK (Rec: 11/07/18 07:59 [facility] [id number]) Cardio Equipment Recumbent Stepper (Sci-Fit) Duration (Minutes) 8 Resistance 2.5 Seat Position 11 Gym Equipment Cable Column (Body Solid) Lat pull Resistance 30 Reps/Time 2x15 Shuttle Balance Dynamic balance training Details red chain Reps/Duration 10 min Comments bal and weight shifts Therapeutic Exercises Supine Exercises lateral flex stretch Reps/Minutes 2x full body stretch Reps/Minutes 2x Comments UE overhead posture press Reps/Minutes 5x Comments legs supported at 90 deg on 65cm ball Standing Exercises sh ext Equipment Used wand Reps/Minutes 10x shoulder ext Resistance L3 TB Reps/Minutes 10x2 Gastroc/soleus stretch Side bilateral Equipment Used CRISTEL Reps/Minutes 30 x 2 Wall psture stretch Side bilateral Reps/Minutes 30 x 2 Scapular Rows Side bilateral Resistance 3# TB Reps/Minutes 2 x 10 Comments Cues for posture Other Exercises child's pose Reps/Minutes 3x Comments forward and lat, incorporating deep breathing cat/cow Reps/Minutes 6x Comments incorporating deep breathing Manual Therapy Treatment Soft Tissue Mobilization STM/MFR Body Location upper trap, posterior cervical reg, suboccipitals Mobilization Type Myofascial Release Trigger Point Release Intensity/Depth Moderate Body Position Sidelying PT-OP-R Modalities Start: 10/04/18 08:08 Freq: Status: Active Protocol: Document 10/04/18 11:20 SAK (Rec: 10/05/18 08:57 [facility] [id number]) Hot Pack/Cold Pack Treatment Cold Pack Location c/s Patient Position Hooklying Treatment Duration (minutes) 10 Patient Tolerance Good PT-OP-S Aquatic Treatment Start: 10/04/18 08:08 Freq: Status: Active Protocol: Document 10/14/18 10:15 JANETT (Rec: 10/14/18 13:56 LJ [id number]) Aquatics Treatment Pool Entry/Exit Assistance Independent Water Walking straight leg march with straight UE's Water Level Neck Level Walking Equipment Resistance Fins Level of Assistance Verbal Cues Comments UE paddles sideways with shld ab/ad Water Level Neck Level Walking Equipment Resistance Fins Level of Assistance Verbal Cues Comments UE paddles Backward walking with reverse breastroke UE's Water Level Neck Level Walking Equipment Resistance Fins Level of Assistance Verbal Cues Comments UE paddles forward with breastroke UE's Water Level Neck Level Walking Equipment Resistance Fins Level of Assistance Verbal Cues Comments UE paddles Upper Extremity Exercises shld IR/ER Water Level Neck Level Reps/Duration 10x 2 Comments blue fins, green aqualogix bells shld circles Reps/Duration 10x2 Comments CW, CCW; fins and bells as above shld flex/ext Body Position Standing Water Level Chest Level Reps/Duration 10x Comments equipment as above hor ab/ad Water Level Neck Level Reps/Duration 10x2 Comments equipment as above Upper Extremity Stretches forward walking w/UE paddles Water Level Neck Level Equipment UE paddles Reps/Duration 30 M varying depths corner stretch Body Position Standing Water Level Chest Level Reps/Duration 2x Spinal Exercises cervical SB Body Position Standing Water Level Neck Level Reps/Duration 5x Comments painfree ROM cervical rotation Body Position Standing Equipment Neck Float Reps/Duration 5x Comments painfree ROM [place] Activities Other Activities bike, ski, abd/add, crossovers , v sit bike, pendulum, lateral pulldowns 10 sec increments Equipment flotation belt, med barbells Swim Strokes sidestroke Laps/Duration 15m Chi Chi Duration (Minutes) 5 PT-OP-T Assessment and Plan Start: 10/04/18 08:08 Freq: Status: Active Protocol: Document 11/03/18 11:15 NGUYỄN (Rec: 11/07/18 07:59 [facility] [id number]) Physical Therapy Assessment Goals 5 Impairment postural dysfunction Short Term Goal (STG) Patient to be instructed in neutral postural alignment and body mechancis 11/03/18: achieved STG Duration goal met Long-Term Goal (LTG) Patient to demonstrate good understanding of posture and body mechanics principles for neck protection and optimal function in the home with ADL' s and with usual activities. 11/03/18: good progress LTG Duration 3 months 4 Impairment ROM and strength impairments in neck and shoulders Short Term Goal (STG) Instruct patient in aquatic exercise program and HEP 11/03/18: completed instruction in aquatic exercise program and patient compliant. Continue to progress HEP. STG Duration goal met Long-Term Goal (LTG) Patient will be independent with HEP and community-based exercise program LTG Duration 3 months 3 Impairment activity tolerance Short Term Goal (STG) Patient able to tolerate 45 min aquatic exercise program without an increase in pain for purposes of long-term pain management and fitness 11/03/18: goal met STG Duration goal met Steamer Blocker Goal (LTG) Patient will be able to tolerate 45 min land-based exercise session with emphasis on postural correction, ROM, and strengthening without an increase in pain for purposes of long-term fitness and pain managment LTG Duration 3 months 2 Impairment Neck disability index score 56 % Short Term Goal (STG) Decrease disability index score to no greater than 35% 11/03/18: goal progress STG Duration 6 wks Steamer Blocker Goal (LTG) Decrease disability index score to no greater than 20% LTG Duration 3 months 1 Impairment neck pain Steamer Blocker Goal (LTG) Pain no greater than 2/10 with usual activities 11/03/18: minimal progress LTG Duration 3 months Assessment Summary Assessment Patient verbally reporting improvement in function and activity tolerance and compliance to HEP and aquatic exercise program. Decrease in pain in low back from 6-8/ 10 to 4-5/10 in morning and 2- 4 during day. Thoracic pain dec from 7/10 to 4-5/10. Cervical pain with minimal change per patient report. Reports pain with all cervical spine motions. Has decreased his pain medication use by approximately 50% which he is very pleased with so despite no change in neck pain is able to take less medication. Physical Therapy Plan Frequency and Duration Frequency of Treatment 2x/Week Duration of Treatment 2 months Plan of Care Start Date 10/04/18 Plan of Care End Date 12/04/18 Therapeutic Interventions Therapeutic Interventions Aquatic Therapy Home Exercise Program Manual Therapy Neuromuscular Re-education Patient/Caregiver Education Self-Care/Home Management Soft Tissue Mobilization Therapeutic Activities Therapeutic Exercises Next Visit Focus/Plan Next Note Type Treatment Note Next Visit Plan Progress ther ex for strengthening, ROM, pain management. Manual therapy and modalities as needed for pain management and muscle relaxation. Continue patient education.
--- NOTE | 2018-11-15 14:41 | PT.OTN ---
Current Diagnoses Arthrodesis status (11/15/18) Physical Therapy Treatment Note PT-OP-A Visit Information Start: 10/04/18 08:08 Freq: Status: Active Protocol: Document 11/15/18 08:13 SAK (Rec: 11/15/18 08:58 [facility] [id number]) Out-Patient Physical Therapy Visit Information Visit Information Visit Type Treatment Note Visit Start Time 08:15 Visit Stop Time 09:00 Total Visit Minutes 45 Visit Number 11 Number of BARREL SCRAPER Visits 0 PT-OP-B Current Condition Start: 10/04/18 08:08 Freq: Status: Active Protocol: Document 10/04/18 11:20 SAK (Rec: 10/04/18 11:54 SAK [id number]) Current Condition History of Current Condition Onset Date 06/28/18 Current Complaints neck pain, weakness, activity intolerance History of Current Condition L and I claim injury date 10/23. Prior cervical spine fusion. On 06/28/18 removal of hardware C6-7 and fusion of C5-6. X-ray 09/30/18 showed good healing. Order for physical therapy 08/09/18, not seen until today due to insurance approval miscommunication. Prescription is for ROM to torso, pecs, shoulders, cervical spine as able, then strengthen. Reports unable to tolerate wearing cervical brace. Dysphagia issues since surgery , seeing ENT. Improved sensation in left hand since the surgery, previously numb. Patient reports since surgery with any exacerbation of pain he requires less time to decrease the symptoms. States has been doing some exercises recently at the pool : LE's only. Precautions; patient reports physician advised he use snorkel for any swimming, no other restrictions. 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 Treatment Goals Patient/Caregiver Goals Realistic exercise plan to continue after PT, know limitations. Prior Functional Status Baseline Function- ADL's Independent Baseline Function- Mobility Independent Baseline Function- Gait indep Personal Factors Other Personal Factors That May Effect DM, ESPINOSA, [place], jaw pain, memory Therapy/Recovery loss, TBI PT-OP-C Subjective Start: 10/04/18 08:08 Freq: Status: Active Protocol: Document 11/15/18 08:13 SAK (Rec: 11/15/18 08:58 [facility] [id number]) OP-PT Subjective Patient Comments Patient Comments Continues to wean down on medication, not taking Tizanidine anymore, decreased use of Flexeril. C/o some foot burning after being on his feet for awhile, stops a fter a few min rest. Reports increased vomiting recently related to his dysphagia, feels possibly due to decline in medication use. Swam a few laps using mask and snorkel UE's staying in water as recommended, frequent rest breaks required. PT-OP-G Mobility & Gait Start: 10/04/18 08:08 Freq: Status: Active Protocol: Document 10/04/18 11:20 SAK (Rec: 10/04/18 15:11 [facility] [id number]) OP Gait Assessment Gait Gait Assistance Required: Independent Factors Limiting Gait Function Factors Limiting Gait Function Pain Comments Gait Comments Able to ambulate household and short community distances, requires frequent rest due to back pain. PT-OP-J Posture/Palpation/Skin Start: 10/04/18 08:08 Freq: Status: Active Protocol: Document 10/04/18 11:20 [facility] (Rec: 10/04/18 15:11 [facility] [id number]) Posture Evaluation Position Sitting Head/C-Spine Posture Forward Head T-Spine Posture Increased Kyphosis Shoulder Posture (R) Rounded (L) Forward Scapula Posture (L) Protracted (R) Protracted Arm Posture (L) Internally Rotated (R) Internally Rotated Comments Posture Comments mod Dowager's hump Palpation Assessment Location One Palpation Location upper traps, levator scap, subocciptal, rhomboids Palpation Findings Soft Tissue Tightness Muscle Guarding Tenderness Skin Assessment Incisional Assessment Incision Appearance/Comments well healed anterior neck with good scar mobility; patient reports he massages with oil every day. PT-OP-K Range of Motion Start: 10/04/18 08:08 Freq: Status: Active Protocol: Document 11/03/18 11:15 SAK (Rec: 11/07/18 08:07 [facility] [id number]) Cervical Spine Range of Motion Cervical Spine Active Testing Position Sitting Flexion 33 Extension 17 Rotation Left 55 Rotation Right 45 Lateral Flexion Left 19 Lateral Flexion Right 25 Comments patient reported pain with all cervical motions, worst with extension and left sidebending . PT-OP-M Strength Start: 10/04/18 08:08 Freq: Status: Active Protocol: Document 11/03/18 11:15 SAK (Rec: 11/07/18 08:10 SAK [id number]) Cervical Spine Strength Cervical Spine Manual Muscle Testing Reason Not Measured Orthopedic Precautions Pain Shoulder Strength Shoulder Manual Muscle Testing rupert Flexion 4 Good Extension 4 Good Abduction (C5) 4- Good- External Rotation 4- Good- Internal Rotation 4 Good Elbow/Forearm Strength Elbow and Forearm Manual Muscle Testing rupert Flexion (C6) 4+ Good+ Extension (C7) 4+ Good+ Comments mild pain left PT-OP-Q Treatments Start: 10/04/18 08:08 Freq: Status: Active Protocol: Document 11/15/18 08:13 SAK (Rec: 11/15/18 08:58 SAK [id number]) Cardio Equipment Recumbent Stepper (Sci-Fit) Duration (Minutes) 8 Resistance 2.5 Seat Position 11 Gym Equipment Cable Column (Body Solid) mid row Resistance 30,20 Reps/Time 15, 15 Lat pull Resistance 30 Reps/Time 2x15 Shuttle Recovery Unilateral Squats Resistance 50# Shuttle Recovery Platform Stable Reps/Time 2 x 15 Bilateral Squats Resistance 100# Shuttle Recovery Platform Stable Reps/Time 2 x 15 Therapeutic Exercises Standing Exercises tricep press Equipment Used L2 TB Reps/Minutes 15x2 Sh ER Equipment Used L2 TB Reps/Minutes 15x2 bicep curls Resistance L2 TB Reps/Minutes 15x 2 shoulder ext Resistance L3 TB Reps/Minutes 10x2 Scapular Rows Side bilateral Resistance 3# TB Reps/Minutes 2 x 10 Comments Cues for posture Manual Therapy Treatment Soft Tissue Mobilization STM/MFR Body Location upper trap, posterior cervical reg, suboccipitals Mobilization Type Myofascial Release Trigger Point Release Intensity/Depth Moderate Body Position Sidelying PT-OP-R Modalities Start: 10/04/18 08:08 Freq: Status: Active Protocol: Document 10/04/18 11:20 SAK (Rec: 10/05/18 08:57 [facility] [id number]) Hot Pack/Cold Pack Treatment Cold Pack Location c/s Patient Position Hooklying Treatment Duration (minutes) 10 Patient Tolerance Good PT-OP-S Aquatic Treatment Start: 10/04/18 08:08 Freq: Status: Active Protocol: Document 10/14/18 10:15 JANETT (Rec: 10/14/18 13:56 LJ [id number]) Aquatics Treatment Pool Entry/Exit Assistance Independent Water Walking straight leg march with straight UE's Water Level Neck Level Walking Equipment Resistance Fins Level of Assistance Verbal Cues Comments UE paddles sideways with shld ab/ad Water Level Neck Level Walking Equipment Resistance Fins Level of Assistance Verbal Cues Comments UE paddles Backward walking with reverse breastroke UE's Water Level Neck Level Walking Equipment Resistance Fins Level of Assistance Verbal Cues Comments UE paddles forward with breastroke UE's Water Level Neck Level Walking Equipment Resistance Fins Level of Assistance Verbal Cues Comments UE paddles Upper Extremity Exercises shld IR/ER Water Level Neck Level Reps/Duration 10x 2 Comments blue fins, green aqualogix bells shld circles Reps/Duration 10x2 Comments CW, CCW; fins and bells as above shld flex/ext Body Position Standing Water Level Chest Level Reps/Duration 10x Comments equipment as above hor ab/ad Water Level Neck Level Reps/Duration 10x2 Comments equipment as above Upper Extremity Stretches forward walking w/UE paddles Water Level Neck Level Equipment UE paddles Reps/Duration 30 M varying depths corner stretch Body Position Standing Water Level Chest Level Reps/Duration 2x Spinal Exercises cervical SB Body Position Standing Water Level Neck Level Reps/Duration 5x Comments painfree ROM cervical rotation Body Position Standing Equipment Neck Float Reps/Duration 5x Comments painfree ROM [place] Activities Other Activities bike, ski, abd/add, crossovers , v sit bike, pendulum, lateral pulldowns 10 sec increments Equipment flotation belt, med barbells Swim Strokes sidestroke Laps/Duration 15m Chi Chi Duration (Minutes) 5 PT-OP-T Assessment and Plan Start: 10/04/18 08:08 Freq: Status: Active Protocol: Document 11/15/18 08:13 [facility] (Rec: 11/15/18 08:58 [facility] [id number]) Physical Therapy Assessment Goals 5 Impairment postural dysfunction Short Term Goal (STG) Patient to be instructed in neutral postural alignment and body mechancis 11/03/18: achieved STG Duration goal met Retention Representative Goal (LTG) Patient to demonstrate good understanding of posture and body mechanics principles for neck protection and optimal function in the home with ADL' s and with usual activities. 11/03/18: good progress LTG Duration 3 months 4 Impairment ROM and strength impairments in neck and shoulders Short Term Goal (STG) Instruct patient in aquatic exercise program and HEP 11/03/18: completed instruction in aquatic exercise program and patient compliant. Continue to progress HEP. STG Duration goal met Skilled Nursing Goal (LTG) Patient will be independent with HEP and community-based exercise program LTG Duration 3 months 3 Impairment activity tolerance Short Term Goal (STG) Patient able to tolerate 45 min aquatic exercise program without an increase in pain for purposes of long-term pain management and fitness 11/03/18: goal met STG Duration goal met Skilled Nursing Goal (LTG) Patient will be able to tolerate 45 min land-based exercise session with emphasis on postural correction, ROM, and strengthening without an increase in pain for purposes of long-term fitness and pain managment LTG Duration 3 months 2 Impairment Neck disability index score 56 % Short Term Goal (STG) Decrease disability index score to no greater than 35% 11/03/18: goal progress STG Duration 6 wks Skilled Nursing Goal (LTG) Decrease disability index score to no greater than 20% LTG Duration 3 months 1 Impairment neck pain Skilled Nursing Goal (LTG) Pain no greater than 2/10 with usual activities 11/03/18: minimal progress LTG Duration 3 months Assessment Summary Assessment Decreasing use of pain medications, improved activity tolerance. Physical Therapy Plan Frequency and Duration Frequency of Treatment 2x/Week Duration of Treatment 2 months Plan of Care Start Date 10/04/18 Plan of Care End Date 12/04/18 Therapeutic Interventions Therapeutic Interventions Aquatic Therapy Home Exercise Program Manual Therapy Neuromuscular Re-education Patient/Caregiver Education Self-Care/Home Management Soft Tissue Mobilization Therapeutic Activities Therapeutic Exercises Next Visit Focus/Plan Next Note Type Treatment Note Next Visit Plan Progress ther ex for strengthening, ROM, pain management. Manual therapy and modalities as needed for pain management and muscle relaxation. Continue patient education.
--- NOTE | 2018-11-17 08:27 | PT.OTN ---
Current Diagnoses Arthrodesis status (11/17/18) Physical Therapy Treatment Note PT-OP-A Visit Information Start: 10/04/18 08:08 Freq: Status: Active Protocol: Document 11/17/18 13:00 [facility] (Rec: 11/21/18 08:27 [facility] [id number]) Out-Patient Physical Therapy Visit Information Visit Information Visit Type Treatment Note Visit Start Time 13:00 Visit Stop Time 13:50 Total Visit Minutes 50 Visit Number 12 Number of PROPERTY CUSTODIAN Visits 0 PT-OP-B Current Condition Start: 10/04/18 08:08 Freq: Status: Active Protocol: Document 10/04/18 11:20 SAK (Rec: 10/04/18 11:54 [facility] [id number]) Current Condition History of Current Condition Onset Date 06/28/18 Current Complaints neck pain, weakness, activity intolerance History of Current Condition L and I claim injury date 10/23. Prior cervical spine fusion. On 06/28/18 removal of hardware C6-7 and fusion of C5-6. X-ray 09/30/18 showed good healing. Order for physical therapy 08/09/18, not seen until today due to insurance approval miscommunication. Prescription is for ROM to torso, pecs, shoulders, cervical spine as able, then strengthen. Reports unable to tolerate wearing cervical brace. Dysphagia issues since surgery , seeing ENT. Improved sensation in left hand since the surgery, previously numb. Patient reports since surgery with any exacerbation of pain he requires less time to decrease the symptoms. States has been doing some exercises recently at the pool : LE's only. Precautions; patient reports physician advised he use snorkel for any swimming, no other restrictions. 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 Treatment Goals Patient/Caregiver Goals Realistic exercise plan to continue after PT, know limitations. Prior Functional Status Baseline Function- ADL's Independent Baseline Function- Mobility Independent Baseline Function- Gait indep Personal Factors Other Personal Factors That May Effect DM, ESPINOSA, [place], jaw pain, memory Therapy/Recovery loss, TBI PT-OP-C Subjective Start: 10/04/18 08:08 Freq: Status: Active Protocol: Document 11/17/18 13:00 [facility] (Rec: 11/21/18 08:27 [facility] [id number]) OP-PT Subjective Patient Comments Patient Comments Patient reports not feeling well today, headache, not sure he can tolerate much exercise . Has continued to be compliant with HEP, indep aquatic ex. PT-OP-G Mobility & Gait Start: 10/04/18 08:08 Freq: Status: Active Protocol: Document 10/04/18 11:20 [facility] (Rec: 10/04/18 15:11 [facility] [id number]) OP Gait Assessment Gait Gait Assistance Required: Independent Factors Limiting Gait Function Factors Limiting Gait Function Pain Comments Gait Comments Able to ambulate household and short community distances, requires frequent rest due to back pain. PT-OP-J Posture/Palpation/Skin Start: 10/04/18 08:08 Freq: Status: Active Protocol: Document 10/04/18 11:20 [facility] (Rec: 10/04/18 15:11 [facility] [id number]) Posture Evaluation Position Sitting Head/C-Spine Posture Forward Head T-Spine Posture Increased Kyphosis Shoulder Posture (R) Rounded (L) Forward Scapula Posture (L) Protracted (R) Protracted Arm Posture (L) Internally Rotated (R) Internally Rotated Comments Posture Comments mod Dowager's hump Palpation Assessment Location One Palpation Location upper traps, levator scap, subocciptal, rhomboids Palpation Findings Soft Tissue Tightness Muscle Guarding Tenderness Skin Assessment Incisional Assessment Incision Appearance/Comments well healed anterior neck with good scar mobility; patient reports he massages with oil every day. PT-OP-K Range of Motion Start: 10/04/18 08:08 Freq: Status: Active Protocol: Document 11/03/18 11:15 [facility] (Rec: 11/07/18 08:07 [facility] [id number]) Cervical Spine Range of Motion Cervical Spine Active Testing Position Sitting Flexion 33 Extension 17 Rotation Left 55 Rotation Right 45 Lateral Flexion Left 19 Lateral Flexion Right 25 Comments patient reported pain with all cervical motions, worst with extension and left sidebending . PT-OP-M Strength Start: 10/04/18 08:08 Freq: Status: Active Protocol: Document 11/03/18 11:15 [facility] (Rec: 11/07/18 08:10 [facility] [id number]) Cervical Spine Strength Cervical Spine Manual Muscle Testing Reason Not Measured Orthopedic Precautions Pain Shoulder Strength Shoulder Manual Muscle Testing rupert Flexion 4 Good Extension 4 Good Abduction (C5) 4- Good- External Rotation 4- Good- Internal Rotation 4 Good Elbow/Forearm Strength Elbow and Forearm Manual Muscle Testing rupert Flexion (C6) 4+ Good+ Extension (C7) 4+ Good+ Comments mild pain left PT-OP-Q Treatments Start: 10/04/18 08:08 Freq: Status: Active Protocol: Document 11/17/18 13:00 [facility] (Rec: 11/21/18 08:27 [facility] [id number]) Cardio Equipment Recumbent Stepper (Sci-Fit) Duration (Minutes) 8 Resistance 2.5 Seat Position 11 Therapeutic Exercises Supine Exercises cervical rot Reps/Minutes 5x Comments pain-free ROM shoulder flex Equipment Used 2# Reps/Minutes 10x serratus punch Equipment Used 2# Reps/Minutes 10x pec stretch Reps/Minutes 3 min Comments passive, manual should hor ab Equipment Used 2# Reps/Minutes 10x Manual Therapy Treatment Soft Tissue Mobilization STM/MFR Body Location upper trap, posterior cervical reg, suboccipital release, SCM Mobilization Type Myofascial Release Trigger Point Release Intensity/Depth Moderate Body Position Sidelying Manual Traction Cervical Reps/Duration 5 min Comments very gentle for muscle relaxation PT-OP-R Modalities Start: 10/04/18 08:08 Freq: Status: Active Protocol: Document 11/17/18 13:00 [facility] (Rec: 11/21/18 08:27 [facility] [id number]) Electric Stimulation Electric Stimulation c/s, [place] Duration (Minutes) 15 Intensity 8 Target/Sweep Sweep Patient Position Hooklying Combined With Heat/Cold Cold Pack PT-OP-S Aquatic Treatment Start: 10/04/18 08:08 Freq: Status: Active Protocol: Document 10/14/18 10:15 JANETT (Rec: 10/14/18 13:56 JANETT [id number]) Aquatics Treatment Pool Entry/Exit Assistance Independent Water Walking straight leg march with straight UE's Water Level Neck Level Walking Equipment Resistance Fins Level of Assistance Verbal Cues Comments UE paddles sideways with shld ab/ad Water Level Neck Level Walking Equipment Resistance Fins Level of Assistance Verbal Cues Comments UE paddles Backward walking with reverse breastroke UE's Water Level Neck Level Walking Equipment Resistance Fins Level of Assistance Verbal Cues Comments UE paddles forward with breastroke UE's Water Level Neck Level Walking Equipment Resistance Fins Level of Assistance Verbal Cues Comments UE paddles Upper Extremity Exercises shld IR/ER Water Level Neck Level Reps/Duration 10x 2 Comments blue fins, green aqualogix bells shld circles Reps/Duration 10x2 Comments CW, CCW; fins and bells as above shld flex/ext Body Position Standing Water Level Chest Level Reps/Duration 10x Comments equipment as above hor ab/ad Water Level Neck Level Reps/Duration 10x2 Comments equipment as above Upper Extremity Stretches forward walking w/UE paddles Water Level Neck Level Equipment UE paddles Reps/Duration 30 M varying depths corner stretch Body Position Standing Water Level Chest Level Reps/Duration 2x Spinal Exercises cervical SB Body Position Standing Water Level Neck Level Reps/Duration 5x Comments painfree ROM cervical rotation Body Position Standing Equipment Neck Float Reps/Duration 5x Comments painfree ROM [place] Activities Other Activities bike, ski, abd/add, crossovers , v sit bike, pendulum, lateral pulldowns 10 sec increments Equipment flotation belt, med barbells Swim Strokes sidestroke Laps/Duration 15m Chi Chi Duration (Minutes) 5 PT-OP-T Assessment and Plan Start: 10/04/18 08:08 Freq: Status: Active Protocol: Document 11/17/18 13:00 [facility] (Rec: 11/21/18 08:27 [facility] [id number]) Physical Therapy Assessment Goals 5 Impairment postural dysfunction Short Term Goal (STG) Patient to be instructed in neutral postural alignment and body mechancis 11/03/18: achieved STG Duration goal met Jail Goal (LTG) Patient to demonstrate good understanding of posture and body mechanics principles for neck protection and optimal function in the home with ADL' s and with usual activities. 11/03/18: good progress LTG Duration 3 months 4 Impairment ROM and strength impairments in neck and shoulders Short Term Goal (STG) Instruct patient in aquatic exercise program and HEP 11/03/18: completed instruction in aquatic exercise program and patient compliant. Continue to progress HEP. STG Duration goal met Jail Goal (LTG) Patient will be independent with HEP and community-based exercise program LTG Duration 3 months 3 Impairment activity tolerance Short Term Goal (STG) Patient able to tolerate 45 min aquatic exercise program without an increase in pain for purposes of long-term pain management and fitness 11/03/18: goal met STG Duration goal met Jail Goal (LTG) Patient will be able to tolerate 45 min land-based exercise session with emphasis on postural correction, ROM, and strengthening without an increase in pain for purposes of long-term fitness and pain managment LTG Duration 3 months 2 Impairment Neck disability index score 56 % Short Term Goal (STG) Decrease disability index score to no greater than 35% 11/03/18: goal progress STG Duration 6 wks Jail Goal (LTG) Decrease disability index score to no greater than 20% LTG Duration 3 months 1 Impairment neck pain Jail Goal (LTG) Pain no greater than 2/10 with usual activities 11/03/18: minimal progress LTG Duration 3 months Assessment Summary Assessment modification of treatment due to pain ESPINOSA and increased tightness and pain. Tolerated treatment well today. Physical Therapy Plan Frequency and Duration Frequency of Treatment 2x/Week Duration of Treatment 2 months Plan of Care Start Date 10/04/18 Plan of Care End Date 12/04/18 Therapeutic Interventions Therapeutic Interventions Aquatic Therapy Home Exercise Program Manual Therapy Neuromuscular Re-education Patient/Caregiver Education Self-Care/Home Management Soft Tissue Mobilization Therapeutic Activities Therapeutic Exercises Next Visit Focus/Plan Next Note Type Treatment Note Next Visit Plan Evaluate response to today's treatment and progress as indicated.
--- NOTE | 2018-11-22 15:47 | PT.OTN ---
Current Diagnoses Arthrodesis status (11/22/18) Physical Therapy Treatment Note PT-OP-A Visit Information Start: 10/04/18 08:08 Freq: Status: Active Protocol: Document 11/22/18 08:12 SAK (Rec: 11/22/18 08:34 [facility] [id number]) Out-Patient Physical Therapy Visit Information Visit Information Visit Type Treatment Note Visit Start Time 08:15 Visit Stop Time 09:10 Total Visit Minutes 55 Visit Number 13 Number of HOT SAW HELPER Visits 0 PT-OP-B Current Condition Start: 10/04/18 08:08 Freq: Status: Active Protocol: Document 10/04/18 11:20 SAK (Rec: 10/04/18 11:54 SAK [id number]) Current Condition History of Current Condition Onset Date 06/28/18 Current Complaints neck pain, weakness, activity intolerance History of Current Condition L and I claim injury date 10/23. Prior cervical spine fusion. On 06/28/18 removal of hardware C6-7 and fusion of C5-6. X-ray 09/30/18 showed good healing. Order for physical therapy 08/09/18, not seen until today due to insurance approval miscommunication. Prescription is for ROM to torso, pecs, shoulders, cervical spine as able, then strengthen. Reports unable to tolerate wearing cervical brace. Dysphagia issues since surgery , seeing ENT. Improved sensation in left hand since the surgery, previously numb. Patient reports since surgery with any exacerbation of pain he requires less time to decrease the symptoms. States has been doing some exercises recently at the pool : LE's only. Precautions; patient reports physician advised he use snorkel for any swimming, no other restrictions. 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 Treatment Goals Patient/Caregiver Goals Realistic exercise plan to continue after PT, know limitations. Prior Functional Status Baseline Function- ADL's Independent Baseline Function- Mobility Independent Baseline Function- Gait indep Personal Factors Other Personal Factors That May Effect DM, ESPINOSA, OSAGE, jaw pain, memory Therapy/Recovery loss, TBI PT-OP-C Subjective Start: 10/04/18 08:08 Freq: Status: Active Protocol: Document 11/22/18 08:12 SAK (Rec: 11/22/18 08:34 [facility] [id number]) OP-PT Subjective Patient Comments Patient Comments No headache today, dec after last session. Since day after last session left side of neck pulling with pain and some numbness into left UE, states it feels inflamed. Reports more difficulty with turning of head. Wondering if part of it is weaning off Lyrica now too. Only has Flexeril available but that mostly helps low back. PT-OP-G Mobility & Gait Start: 10/04/18 08:08 Freq: Status: Active Protocol: Document 10/04/18 11:20 [facility] (Rec: 10/04/18 15:11 [facility] [id number]) OP Gait Assessment Gait Gait Assistance Required: Independent Factors Limiting Gait Function Factors Limiting Gait Function Pain Comments Gait Comments Able to ambulate household and short community distances, requires frequent rest due to back pain. PT-OP-J Posture/Palpation/Skin Start: 10/04/18 08:08 Freq: Status: Active Protocol: Document 10/04/18 11:20 [facility] (Rec: 10/04/18 15:11 [facility] [id number]) Posture Evaluation Position Sitting Head/C-Spine Posture Forward Head T-Spine Posture Increased Kyphosis Shoulder Posture (R) Rounded (L) Forward Scapula Posture (L) Protracted (R) Protracted Arm Posture (L) Internally Rotated (R) Internally Rotated Comments Posture Comments mod Dowager's hump Palpation Assessment Location One Palpation Location upper traps, levator scap, subocciptal, rhomboids Palpation Findings Soft Tissue Tightness Muscle Guarding Tenderness Skin Assessment Incisional Assessment Incision Appearance/Comments well healed anterior neck with good scar mobility; patient reports he massages with oil every day. PT-OP-K Range of Motion Start: 10/04/18 08:08 Freq: Status: Active Protocol: Document 11/03/18 11:15 [facility] (Rec: 11/07/18 08:07 [facility] [id number]) Cervical Spine Range of Motion Cervical Spine Active Testing Position Sitting Flexion 33 Extension 17 Rotation Left 55 Rotation Right 45 Lateral Flexion Left 19 Lateral Flexion Right 25 Comments patient reported pain with all cervical motions, worst with extension and left sidebending . PT-OP-M Strength Start: 10/04/18 08:08 Freq: Status: Active Protocol: Document 11/03/18 11:15 SAK (Rec: 11/07/18 08:10 [facility] [id number]) Cervical Spine Strength Cervical Spine Manual Muscle Testing Reason Not Measured Orthopedic Precautions Pain Shoulder Strength Shoulder Manual Muscle Testing rupert Flexion 4 Good Extension 4 Good Abduction (C5) 4- Good- External Rotation 4- Good- Internal Rotation 4 Good Elbow/Forearm Strength Elbow and Forearm Manual Muscle Testing rupert Flexion (C6) 4+ Good+ Extension (C7) 4+ Good+ Comments mild pain left PT-OP-Q Treatments Start: 10/04/18 08:08 Freq: Status: Active Protocol: Document 11/22/18 08:12 SAK (Rec: 11/22/18 08:34 SAK [id number]) Cardio Equipment Recumbent Stepper (Sci-Fit) Duration (Minutes) 10 Resistance 2.5-3.5 Seat Position 12 Therapeutic Exercises Supine Exercises cervical rot Reps/Minutes 5x Comments pain-free ROM shoulder flex Equipment Used 2# Reps/Minutes 10x serratus punch Equipment Used 2# Reps/Minutes 10x pec stretch Reps/Minutes 3 min Comments passive, manual should hor ab Equipment Used 2# Reps/Minutes 10x Manual Therapy Treatment Soft Tissue Mobilization STM/MFR Body Location upper trap, posterior cervical reg, suboccipital release, SCM Mobilization Type Myofascial Release Trigger Point Release Intensity/Depth Moderate Body Position Sidelying Manual Traction Cervical Reps/Duration 5 min Comments very gentle for muscle relaxation and pain management Taping postural taping Type of Tape Kinesio Tape Comments 2 I strips between scapula, I strip each side T10 to anterior shoulder (both for postural correction) PT-OP-R Modalities Start: 10/04/18 08:08 Freq: Status: Active Protocol: Document 11/22/18 08:12 SAK (Rec: 11/22/18 15:46 SAK [id number]) Electric Stimulation Electric Stimulation c/s, [place] Duration (Minutes) 15 Intensity 8 Target/Sweep Sweep Patient Position Hooklying Combined With Heat/Cold Cold Pack PT-OP-S Aquatic Treatment Start: 10/04/18 08:08 Freq: Status: Active Protocol: Document 10/14/18 10:15 JANETT (Rec: 10/14/18 13:56 LJ [id number]) Aquatics Treatment Pool Entry/Exit Assistance Independent Water Walking straight leg march with straight UE's Water Level Neck Level Walking Equipment Resistance Fins Level of Assistance Verbal Cues Comments UE paddles sideways with shld ab/ad Water Level Neck Level Walking Equipment Resistance Fins Level of Assistance Verbal Cues Comments UE paddles Backward walking with reverse breastroke UE's Water Level Neck Level Walking Equipment Resistance Fins Level of Assistance Verbal Cues Comments UE paddles forward with breastroke UE's Water Level Neck Level Walking Equipment Resistance Fins Level of Assistance Verbal Cues Comments UE paddles Upper Extremity Exercises shld IR/ER Water Level Neck Level Reps/Duration 10x 2 Comments blue fins, green aqualogix bells shld circles Reps/Duration 10x2 Comments CW, CCW; fins and bells as above shld flex/ext Body Position Standing Water Level Chest Level Reps/Duration 10x Comments equipment as above hor ab/ad Water Level Neck Level Reps/Duration 10x2 Comments equipment as above Upper Extremity Stretches forward walking w/UE paddles Water Level Neck Level Equipment UE paddles Reps/Duration 30 M varying depths corner stretch Body Position Standing Water Level Chest Level Reps/Duration 2x Spinal Exercises cervical SB Body Position Standing Water Level Neck Level Reps/Duration 5x Comments painfree ROM cervical rotation Body Position Standing Equipment Neck Float Reps/Duration 5x Comments painfree ROM [place] Activities Other Activities bike, ski, abd/add, crossovers , v sit bike, pendulum, lateral pulldowns 10 sec increments Equipment flotation belt, med barbells Swim Strokes sidestroke Laps/Duration 15m Chi Chi Duration (Minutes) 5 PT-OP-T Assessment and Plan Start: 10/04/18 08:08 Freq: Status: Active Protocol: Document 11/22/18 08:12 [facility] (Rec: 11/22/18 15:46 [facility] [id number]) Physical Therapy Assessment Goals 5 Impairment postural dysfunction Short Term Goal (STG) Patient to be instructed in neutral postural alignment and body mechancis 11/03/18: achieved STG Duration goal met [facility] Goal (LTG) Patient to demonstrate good understanding of posture and body mechanics principles for neck protection and optimal function in the home with ADL' s and with usual activities. 11/03/18: good progress LTG Duration 3 months 4 Impairment ROM and strength impairments in neck and shoulders Short Term Goal (STG) Instruct patient in aquatic exercise program and HEP 11/03/18: completed instruction in aquatic exercise program and patient compliant. Continue to progress HEP. STG Duration goal met [facility] Goal (LTG) Patient will be independent with HEP and community-based exercise program LTG Duration 3 months 3 Impairment activity tolerance Short Term Goal (STG) Patient able to tolerate 45 min aquatic exercise program without an increase in pain for purposes of long-term pain management and fitness 11/03/18: goal met STG Duration goal met Mini Bar Attendant Goal (LTG) Patient will be able to tolerate 45 min land-based exercise session with emphasis on postural correction, ROM, and strengthening without an increase in pain for purposes of long-term fitness and pain managment LTG Duration 3 months 2 Impairment Neck disability index score 56 % Short Term Goal (STG) Decrease disability index score to no greater than 35% 11/03/18: goal progress STG Duration 6 wks [facility] Attendant Goal (LTG) Decrease disability index score to no greater than 20% LTG Duration 3 months 1 Impairment neck pain Mini Bar Attendant Goal (LTG) Pain no greater than 2/10 with usual activities 11/03/18: minimal progress LTG Duration 3 months Assessment Summary Assessment Low tolerance for ex, did primarily in supine. Trial kinesiotape for postural correction which may be impacting pain level. Physical Therapy Plan Frequency and Duration Frequency of Treatment 2x/Week Duration of Treatment 2 months Plan of Care Start Date 10/04/18 Plan of Care End Date 12/04/18 Therapeutic Interventions Therapeutic Interventions Aquatic Therapy Home Exercise Program Manual Therapy Neuromuscular Re-education Patient/Caregiver Education Self-Care/Home Management Soft Tissue Mobilization Therapeutic Activities Therapeutic Exercises Next Visit Focus/Plan Next Note Type Treatment Note Next Visit Plan Gentle progression back to more ther ex as tolerated. Asses response to kinesiotape. Modifications as indicated.
--- NOTE | 2018-11-24 16:43 | PT.OTN ---
Current Diagnoses Arthrodesis status (11/24/18) Physical Therapy Treatment Note PT-OP-A Visit Information Start: 10/04/18 08:08 Freq: Status: Active Protocol: Document 11/24/18 08:11 [facility] (Rec: 11/24/18 08:53 [facility] [id number]) Out-Patient Physical Therapy Visit Information Visit Information Visit Type Treatment Note Visit Start Time 08:15 Visit Stop Time 09:10 Total Visit Minutes 55 Visit Number 14 Number of LAUNDRY MARKER SUPERVISOR Visits 0 Evaluation Information Evaluation Date 10/04/18 Precautions Precautions c/s fusion high irritability of symptoms PT-OP-B Current Condition Start: 10/04/18 08:08 Freq: Status: Active Protocol: Document 10/04/18 11:20 SAK (Rec: 10/04/18 11:54 SAK [id number]) Current Condition History of Current Condition Onset Date 06/28/18 Current Complaints neck pain, weakness, activity intolerance History of Current Condition L and I claim injury date 10/23. Prior cervical spine fusion. On 06/28/18 removal of hardware C6-7 and fusion of C5-6. X-ray 09/30/18 showed good healing. Order for physical therapy 08/09/18, not seen until today due to insurance approval miscommunication. Prescription is for ROM to torso, pecs, shoulders, cervical spine as able, then strengthen. Reports unable to tolerate wearing cervical brace. Dysphagia issues since surgery , seeing ENT. Improved sensation in left hand since the surgery, previously numb. Patient reports since surgery with any exacerbation of pain he requires less time to decrease the symptoms. States has been doing some exercises recently at the pool : LE's only. Precautions; patient reports physician advised he use snorkel for any swimming, no other restrictions. 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 Treatment Goals Patient/Caregiver Goals Realistic exercise plan to continue after PT, know limitations. Prior Functional Status Baseline Function- ADL's Independent Baseline Function- Mobility Independent Baseline Function- Gait indep Personal Factors Other Personal Factors That May Effect DM, ESPINOSA, [place], jaw pain, memory Therapy/Recovery loss, TBI PT-OP-C Subjective Start: 10/04/18 08:08 Freq: Status: Active Protocol: Document 11/24/18 08:11 SAK (Rec: 11/24/18 08:53 [facility] [id number]) OP-PT Subjective Patient Comments Patient Comments Decreased pain , liked kinesiotape, felt it was helpful. PT-OP-G Mobility & Gait Start: 10/04/18 08:08 Freq: Status: Active Protocol: Document 10/04/18 11:20 [facility] (Rec: 10/04/18 15:11 [facility] [id number]) OP Gait Assessment Gait Gait Assistance Required: Independent Factors Limiting Gait Function Factors Limiting Gait Function Pain Comments Gait Comments Able to ambulate household and short community distances, requires frequent rest due to back pain. PT-OP-J Posture/Palpation/Skin Start: 10/04/18 08:08 Freq: Status: Active Protocol: Document 10/04/18 11:20 [facility] (Rec: 10/04/18 15:11 [facility] [id number]) Posture Evaluation Position Sitting Head/C-Spine Posture Forward Head T-Spine Posture Increased Kyphosis Shoulder Posture (R) Rounded (L) Forward Scapula Posture (L) Protracted (R) Protracted Arm Posture (L) Internally Rotated (R) Internally Rotated Comments Posture Comments mod Dowager's hump Palpation Assessment Location One Palpation Location upper traps, levator scap, subocciptal, rhomboids Palpation Findings Soft Tissue Tightness Muscle Guarding Tenderness Skin Assessment Incisional Assessment Incision Appearance/Comments well healed anterior neck with good scar mobility; patient reports he massages with oil every day. PT-OP-K Range of Motion Start: 10/04/18 08:08 Freq: Status: Active Protocol: Document 11/03/18 11:15 [facility] (Rec: 11/07/18 08:07 [facility] [id number]) Cervical Spine Range of Motion Cervical Spine Active Testing Position Sitting Flexion 33 Extension 17 Rotation Left 55 Rotation Right 45 Lateral Flexion Left 19 Lateral Flexion Right 25 Comments patient reported pain with all cervical motions, worst with extension and left sidebending . PT-OP-M Strength Start: 10/04/18 08:08 Freq: Status: Active Protocol: Document 11/03/18 11:15 [facility] (Rec: 11/07/18 08:10 [facility] [id number]) Cervical Spine Strength Cervical Spine Manual Muscle Testing Reason Not Measured Orthopedic Precautions Pain Shoulder Strength Shoulder Manual Muscle Testing rupert Flexion 4 Good Extension 4 Good Abduction (C5) 4- Good- External Rotation 4- Good- Internal Rotation 4 Good Elbow/Forearm Strength Elbow and Forearm Manual Muscle Testing rupert Flexion (C6) 4+ Good+ Extension (C7) 4+ Good+ Comments mild pain left PT-OP-Q Treatments Start: 10/04/18 08:08 Freq: Status: Active Protocol: Document 11/24/18 08:11 [facility] (Rec: 11/24/18 08:53 [facility] [id number]) Cardio Equipment Recumbent Stepper (Sci-Fit) Duration (Minutes) 10 Resistance 2.5-4.0 Seat Position 12 Therapeutic Exercises Supine Exercises shoulder flex Equipment Used 2# Reps/Minutes 10x serratus punch Equipment Used 2# Reps/Minutes 10x pec stretch Reps/Minutes 3 min Comments passive, manual should hor ab Equipment Used 2# Reps/Minutes 10x Standing Exercises tricep press Equipment Used L2 TB Reps/Minutes 15x2 Sh ER Equipment Used L2 TB Reps/Minutes 15x2 sh ext Equipment Used wand Reps/Minutes 10x bicep curls Resistance L2 TB Reps/Minutes 15x 2 shoulder ext Resistance L3 TB Reps/Minutes 10x2 Gastroc/soleus stretch Side bilateral Equipment Used CRISTEL Reps/Minutes 30 x 2 Wall psture stretch Side bilateral Reps/Minutes 30 x 2 Scapular Rows Side bilateral Resistance 3# TB Reps/Minutes 2 x 10 Comments Cues for posture Other Exercises Body blade Other Exercise Name small Reps/Minutes 20x 1 rupert, x1 ea unil Comments elbow at side3 Manual Therapy Treatment Soft Tissue Mobilization STM/MFR Body Location upper trap, posterior cervical reg, suboccipital release, SCM Mobilization Type Myofascial Release Trigger Point Release Intensity/Depth Moderate Body Position Hooklying Manual Traction Cervical Reps/Duration 3 min Comments very gentle for muscle relaxation and pain management Taping postural taping Type of Tape Kinesio Tape Comments 2 I strips between scapula, I strip each side T10 to anterior shoulder (both for postural correction) PT-OP-R Modalities Start: 10/04/18 08:08 Freq: Status: Active Protocol: Document 11/24/18 08:11 [facility] (Rec: 11/24/18 08:53 [facility] [id number]) Electric Stimulation Electric Stimulation c/s, [place] Duration (Minutes) 15 Intensity 8 Target/Sweep Sweep Patient Position Hooklying Combined With Heat/Cold Cold Pack PT-OP-S Aquatic Treatment Start: 10/04/18 08:08 Freq: Status: Active Protocol: Document 10/14/18 10:15 LJ (Rec: 10/14/18 13:56 LJ [id number]) Aquatics Treatment Pool Entry/Exit Assistance Independent Water Walking straight leg march with straight UE's Water Level Neck Level Walking Equipment Resistance Fins Level of Assistance Verbal Cues Comments UE paddles sideways with shld ab/ad Water Level Neck Level Walking Equipment Resistance Fins Level of Assistance Verbal Cues Comments UE paddles Backward walking with reverse breastroke UE's Water Level Neck Level Walking Equipment Resistance Fins Level of Assistance Verbal Cues Comments UE paddles forward with breastroke UE's Water Level Neck Level Walking Equipment Resistance Fins Level of Assistance Verbal Cues Comments UE paddles Upper Extremity Exercises shld IR/ER Water Level Neck Level Reps/Duration 10x 2 Comments blue fins, green aqualogix bells shld circles Reps/Duration 10x2 Comments CW, CCW; fins and bells as above shld flex/ext Body Position Standing Water Level Chest Level Reps/Duration 10x Comments equipment as above hor ab/ad Water Level Neck Level Reps/Duration 10x2 Comments equipment as above Upper Extremity Stretches forward walking w/UE paddles Water Level Neck Level Equipment UE paddles Reps/Duration 30 M varying depths corner stretch Body Position Standing Water Level Chest Level Reps/Duration 2x Spinal Exercises cervical SB Body Position Standing Water Level Neck Level Reps/Duration 5x Comments painfree ROM cervical rotation Body Position Standing Equipment Neck Float Reps/Duration 5x Comments painfree ROM [place] Activities Other Activities bike, ski, abd/add, crossovers , v sit bike, pendulum, lateral pulldowns 10 sec increments Equipment flotation belt, med barbells Swim Strokes sidestroke Laps/Duration 15m Chi Chi Duration (Minutes) 5 PT-OP-T Assessment and Plan Start: 10/04/18 08:08 Freq: Status: Active Protocol: Document 11/24/18 08:11 [facility] (Rec: 11/24/18 08:53 SAK [id number]) Physical Therapy Assessment Goals 5 Impairment postural dysfunction Short Term Goal (STG) Patient to be instructed in neutral postural alignment and body mechancis 11/03/18: achieved STG Duration goal met Long-Term Goal (LTG) Patient to demonstrate good understanding of posture and body mechanics principles for neck protection and optimal function in the home with ADL' s and with usual activities. 11/03/18: good progress LTG Duration 3 months 4 Impairment ROM and strength impairments in neck and shoulders Short Term Goal (STG) Instruct patient in aquatic exercise program and HEP 11/03/18: completed instruction in aquatic exercise program and patient compliant. Continue to progress HEP. STG Duration goal met Long-Term Goal (LTG) Patient will be independent with HEP and community-based exercise program LTG Duration 3 months 3 Impairment activity tolerance Short Term Goal (STG) Patient able to tolerate 45 min aquatic exercise program without an increase in pain for purposes of long-term pain management and fitness 11/03/18: goal met STG Duration goal met [place] [facility] Goal (LTG) Patient will be able to tolerate 45 min land-based exercise session with emphasis on postural correction, ROM, and strengthening without an increase in pain for purposes of long-term fitness and pain managment LTG Duration 3 months 2 Impairment Neck disability index score 56 % Short Term Goal (STG) Decrease disability index score to no greater than 35% 11/03/18: goal progress STG Duration 6 wks Long-Term Goal (LTG) Decrease disability index score to no greater than 20% LTG Duration 3 months 1 Impairment neck pain [place] [facility] Goal (LTG) Pain no greater than 2/10 with usual activities 11/03/18: minimal progress LTG Duration 3 months Assessment Summary Assessment Derease in pain, improved exercise tolerance. Physical Therapy Plan Frequency and Duration Frequency of Treatment 2x/Week Duration of Treatment 2 months Plan of Care Start Date 10/04/18 Plan of Care End Date 12/04/18 Therapeutic Interventions Therapeutic Interventions Aquatic Therapy Home Exercise Program Manual Therapy Neuromuscular Re-education Patient/Caregiver Education Self-Care/Home Management Soft Tissue Mobilization Therapeutic Activities Therapeutic Exercises Next Visit Focus/Plan Next Note Type Treatment Note Next Visit Plan Start prone strengthening.;
--- NOTE | 2018-11-29 16:11 | PT.OTN ---
Current Diagnoses Arthrodesis status (11/29/18) Physical Therapy Treatment Note PT-OP-A Visit Information Start: 10/04/18 08:08 Freq: Status: Active Protocol: Document 11/29/18 08:14 SAK (Rec: 11/29/18 09:00 SAK [id number]) Out-Patient Physical Therapy Visit Information Visit Information Visit Type Treatment Note Visit Start Time 08:15 Visit Stop Time 09:10 Total Visit Minutes 55 Visit Number 15 Number of MEDICAL EDUCATION MANAGER Visits 0 Evaluation Information Evaluation Date 10/04/18 Precautions Precautions c/s fusion high irritability of symptoms PT-OP-B Current Condition Start: 10/04/18 08:08 Freq: Status: Active Protocol: Document 10/04/18 11:20 SAK (Rec: 10/04/18 11:54 SAK [id number]) Current Condition History of Current Condition Onset Date 06/28/18 Current Complaints neck pain, weakness, activity intolerance History of Current Condition L and I claim injury date 10/23. Prior cervical spine fusion. On 06/28/18 removal of hardware C6-7 and fusion of C5-6. X-ray 09/30/18 showed good healing. Order for physical therapy 08/09/18, not seen until today due to insurance approval miscommunication. Prescription is for ROM to torso, pecs, shoulders, cervical spine as able, then strengthen. Reports unable to tolerate wearing cervical brace. Dysphagia issues since surgery , seeing ENT. Improved sensation in left hand since the surgery, previously numb. Patient reports since surgery with any exacerbation of pain he requires less time to decrease the symptoms. States has been doing some exercises recently at the pool : LE's only. Precautions; patient reports physician advised he use snorkel for any swimming, no other restrictions. 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 Treatment Goals Patient/Caregiver Goals Realistic exercise plan to continue after PT, know limitations. Prior Functional Status Baseline Function- ADL's Independent Baseline Function- Mobility Independent Baseline Function- Gait indep Personal Factors Other Personal Factors That May Effect DM, ESPINOSA, [place], jaw pain, memory Therapy/Recovery loss, TBI PT-OP-C Subjective Start: 10/04/18 08:08 Freq: Status: Active Protocol: Document 11/29/18 08:14 SAK (Rec: 11/29/18 09:00 SAK [id number]) OP-PT Subjective Patient Comments Patient Comments Had a really bad muscle cramp left leg over the weekend. Dropped something to ground recently because left hand gave way. PT-OP-G Mobility & Gait Start: 10/04/18 08:08 Freq: Status: Active Protocol: Document 10/04/18 11:20 [facility] (Rec: 10/04/18 15:11 [facility] [id number]) OP Gait Assessment Gait Gait Assistance Required: Independent Factors Limiting Gait Function Factors Limiting Gait Function Pain Comments Gait Comments Able to ambulate household and short community distances, requires frequent rest due to back pain. PT-OP-J Posture/Palpation/Skin Start: 10/04/18 08:08 Freq: Status: Active Protocol: Document 10/04/18 11:20 [facility] (Rec: 10/04/18 15:11 [facility] [id number]) Posture Evaluation Position Sitting Head/C-Spine Posture Forward Head T-Spine Posture Increased Kyphosis Shoulder Posture (R) Rounded (L) Forward Scapula Posture (L) Protracted (R) Protracted Arm Posture (L) Internally Rotated (R) Internally Rotated Comments Posture Comments mod Dowager's hump Palpation Assessment Location One Palpation Location upper traps, levator scap, subocciptal, rhomboids Palpation Findings Soft Tissue Tightness Muscle Guarding Tenderness Skin Assessment Incisional Assessment Incision Appearance/Comments well healed anterior neck with good scar mobility; patient reports he massages with oil every day. PT-OP-K Range of Motion Start: 10/04/18 08:08 Freq: Status: Active Protocol: Document 11/03/18 11:15 [facility] (Rec: 11/07/18 08:07 [facility] [id number]) Cervical Spine Range of Motion Cervical Spine Active Testing Position Sitting Flexion 33 Extension 17 Rotation Left 55 Rotation Right 45 Lateral Flexion Left 19 Lateral Flexion Right 25 Comments patient reported pain with all cervical motions, worst with extension and left sidebending . PT-OP-M Strength Start: 10/04/18 08:08 Freq: Status: Active Protocol: Document 11/03/18 11:15 [facility] (Rec: 11/07/18 08:10 [facility] [id number]) Cervical Spine Strength Cervical Spine Manual Muscle Testing Reason Not Measured Orthopedic Precautions Pain Shoulder Strength Shoulder Manual Muscle Testing rupert Flexion 4 Good Extension 4 Good Abduction (C5) 4- Good- External Rotation 4- Good- Internal Rotation 4 Good Elbow/Forearm Strength Elbow and Forearm Manual Muscle Testing rupert Flexion (C6) 4+ Good+ Extension (C7) 4+ Good+ Comments mild pain left PT-OP-Q Treatments Start: 10/04/18 08:08 Freq: Status: Active Protocol: Document 11/29/18 08:14 [facility] (Rec: 11/29/18 09:00 [facility] [id number]) Cardio Equipment Recumbent Stepper (Sci-Fit) Duration (Minutes) 10 Resistance 2.5-4.0 Seat Position 12 Gym Equipment Cable Column (Body Solid) Lat pull Resistance 30 Reps/Time 2x15 Therapeutic Exercises Supine Exercises shoulder flex Equipment Used 2# Reps/Minutes 10x serratus punch Equipment Used 2# Reps/Minutes 10x pec stretch Reps/Minutes 3 min Comments passive, manual should hor ab Equipment Used 2# Reps/Minutes 10x Prone Exercises I, T Reps/Minutes 10x Comments verbal and manual scapular cues Standing Exercises doorway stretch Reps/Minutes 2x30 Wall psture stretch Side bilateral Reps/Minutes 30 x 2 Other Exercises Body blade Other Exercise Name small Reps/Minutes 30x 1 rupert, x1 ea unil Comments fwx/bck, side, rupert fwd/bck Manual Therapy Treatment Soft Tissue Mobilization STM/MFR Body Location upper trap, posterior cervical reg, suboccipital release, SCM Mobilization Type Myofascial Release Trigger Point Release Intensity/Depth Moderate Body Position Hooklying Taping postural taping Type of Tape Kinesio Tape Comments 2 I strips between scapula, I strip each side T10 to anterior shoulder (both for postural correction) PT-OP-R Modalities Start: 10/04/18 08:08 Freq: Status: Active Protocol: Document 11/29/18 08:14 [facility] (Rec: 11/29/18 09:00 [facility] [id number]) Electric Stimulation Electric Stimulation c/s, [place] Duration (Minutes) 15 Intensity 8 Target/Sweep Sweep Patient Position Hooklying Combined With Heat/Cold Cold Pack PT-OP-S Aquatic Treatment Start: 10/04/18 08:08 Freq: Status: Active Protocol: Document 10/14/18 10:15 JANETT (Rec: 10/14/18 13:56 LJ [id number]) Aquatics Treatment Pool Entry/Exit Assistance Independent Water Walking straight leg march with straight UE's Water Level Neck Level Walking Equipment Resistance Fins Level of Assistance Verbal Cues Comments UE paddles sideways with shld ab/ad Water Level Neck Level Walking Equipment Resistance Fins Level of Assistance Verbal Cues Comments UE paddles Backward walking with reverse breastroke UE's Water Level Neck Level Walking Equipment Resistance Fins Level of Assistance Verbal Cues Comments UE paddles forward with breastroke UE's Water Level Neck Level Walking Equipment Resistance Fins Level of Assistance Verbal Cues Comments UE paddles Upper Extremity Exercises shld IR/ER Water Level Neck Level Reps/Duration 10x 2 Comments blue fins, green aqualogix bells shld circles Reps/Duration 10x2 Comments CW, CCW; fins and bells as above shld flex/ext Body Position Standing Water Level Chest Level Reps/Duration 10x Comments equipment as above hor ab/ad Water Level Neck Level Reps/Duration 10x2 Comments equipment as above Upper Extremity Stretches forward walking w/UE paddles Water Level Neck Level Equipment UE paddles Reps/Duration 30 M varying depths corner stretch Body Position Standing Water Level Chest Level Reps/Duration 2x Spinal Exercises cervical SB Body Position Standing Water Level Neck Level Reps/Duration 5x Comments painfree ROM cervical rotation Body Position Standing Equipment Neck Float Reps/Duration 5x Comments painfree ROM [place] Activities Other Activities bike, ski, abd/add, crossovers , v sit bike, pendulum, lateral pulldowns 10 sec increments Equipment flotation belt, med barbells Swim Strokes sidestroke Laps/Duration 15m Chi Chi Duration (Minutes) 5 PT-OP-T Assessment and Plan Start: 10/04/18 08:08 Freq: Status: Active Protocol: Document 11/29/18 08:14 NGUYỄN (Rec: 11/29/18 09:00 [facility] [id number]) Physical Therapy Assessment Goals 5 Impairment postural dysfunction Short Term Goal (STG) Patient to be instructed in neutral postural alignment and body mechancis 11/03/18: achieved STG Duration goal met Laboratory Administrative Director Goal (LTG) Patient to demonstrate good understanding of posture and body mechanics principles for neck protection and optimal function in the home with ADL' s and with usual activities. 11/03/18: good progress LTG Duration 3 months 4 Impairment ROM and strength impairments in neck and shoulders Short Term Goal (STG) Instruct patient in aquatic exercise program and HEP 11/03/18: completed instruction in aquatic exercise program and patient compliant. Continue to progress HEP. STG Duration goal met Correction Goal (LTG) Patient will be independent with HEP and community-based exercise program LTG Duration 3 months 3 Impairment activity tolerance Short Term Goal (STG) Patient able to tolerate 45 min aquatic exercise program without an increase in pain for purposes of long-term pain management and fitness 11/03/18: goal met STG Duration goal met Correction Goal (LTG) Patient will be able to tolerate 45 min land-based exercise session with emphasis on postural correction, ROM, and strengthening without an increase in pain for purposes of long-term fitness and pain managment LTG Duration 3 months 2 Impairment Neck disability index score 56 % Short Term Goal (STG) Decrease disability index score to no greater than 35% 11/03/18: goal progress STG Duration 6 wks Laboratory Administrative Director Goal (LTG) Decrease disability index score to no greater than 20% LTG Duration 3 months 1 Impairment neck pain Laboratory Administrative Director Goal (LTG) Pain no greater than 2/10 with usual activities 11/03/18: minimal progress LTG Duration 3 months Assessment Summary Assessment prone exercises difficult with mod fatigue at 10 reps, denied increase in symptoms. Improving activity tolerance. Physical Therapy Plan Frequency and Duration Frequency of Treatment 2x/Week Duration of Treatment 2 months Plan of Care Start Date 10/04/18 Plan of Care End Date 12/04/18 Therapeutic Interventions Therapeutic Interventions Aquatic Therapy Home Exercise Program Manual Therapy Neuromuscular Re-education Patient/Caregiver Education Self-Care/Home Management Soft Tissue Mobilization Therapeutic Activities Therapeutic Exercises Next Visit Focus/Plan Next Note Type Treatment Note Next Visit Plan Assess response to prone ex, progress to Y's as az.
--- NOTE | 2018-12-06 16:04 | PT.OTN ---
Current Diagnoses Arthrodesis status (12/06/18) Physical Therapy Treatment Note PT-OP-A Visit Information Start: 10/04/18 08:08 Freq: Status: Active Protocol: Document 12/06/18 15:49 SA (Rec: 12/06/18 16:03 SA [email or web address]) Out-Patient Physical Therapy Visit Information Visit Information Visit Type Treatment Note Visit Start Time 12:15 Visit Stop Time 13:08 Total Visit Minutes 53 Visit Number 16 Number of MARINE BIOLOGIST Visits 1 PT-OP-B Current Condition Start: 10/04/18 08:08 Freq: Status: Active Protocol: Document 10/04/18 11:20 SAK (Rec: 10/04/18 11:54 SAK [id number]) Current Condition History of Current Condition Onset Date 06/28/18 Current Complaints neck pain, weakness, activity intolerance History of Current Condition L and I claim injury date 10/23. Prior cervical spine fusion. On 06/28/18 removal of hardware C6-7 and fusion of C5-6. X-ray 09/30/18 showed good healing. Order for physical therapy 08/09/18, not seen until today due to insurance approval miscommunication. Prescription is for ROM to torso, pecs, shoulders, cervical spine as able, then strengthen. Reports unable to tolerate wearing cervical brace. Dysphagia issues since surgery , seeing ENT. Improved sensation in left hand since the surgery, previously numb. Patient reports since surgery with any exacerbation of pain he requires less time to decrease the symptoms. States has been doing some exercises recently at the pool : LE's only. Precautions; patient reports physician advised he use snorkel for any swimming, no other restrictions. 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 Treatment Goals Patient/Caregiver Goals Realistic exercise plan to continue after PT, know limitations. Prior Functional Status Baseline Function- ADL's Independent Baseline Function- Mobility Independent Baseline Function- Gait indep Personal Factors Other Personal Factors That May Effect DM, [place], [place], jaw pain, memory Therapy/Recovery loss, TBI PT-OP-C Subjective Start: 10/04/18 08:08 Freq: Status: Active Protocol: Document 12/06/18 15:49 SA (Rec: 12/06/18 16:03 SA [id number]) OP-PT Subjective Patient Comments Patient Comments No muscle cramps over the last week. Taping seems to help, doing HEP consistantly. PT-OP-G Mobility & Gait Start: 10/04/18 08:08 Freq: Status: Active Protocol: Document 10/04/18 11:20 [facility] (Rec: 10/04/18 15:11 [facility] [id number]) OP Gait Assessment Gait Gait Assistance Required: Independent Factors Limiting Gait Function Factors Limiting Gait Function Pain Comments Gait Comments Able to ambulate household and short community distances, requires frequent rest due to back pain. PT-OP-J Posture/Palpation/Skin Start: 10/04/18 08:08 Freq: Status: Active Protocol: Document 10/04/18 11:20 [facility] (Rec: 10/04/18 15:11 [facility] [id number]) Posture Evaluation Position Sitting Head/C-Spine Posture Forward Head T-Spine Posture Increased Kyphosis Shoulder Posture (R) Rounded (L) Forward Scapula Posture (L) Protracted (R) Protracted Arm Posture (L) Internally Rotated (R) Internally Rotated Comments Posture Comments mod Dowager's hump Palpation Assessment Location One Palpation Location upper traps, levator scap, subocciptal, rhomboids Palpation Findings Soft Tissue Tightness Muscle Guarding Tenderness Skin Assessment Incisional Assessment Incision Appearance/Comments well healed anterior neck with good scar mobility; patient reports he massages with oil every day. PT-OP-K Range of Motion Start: 10/04/18 08:08 Freq: Status: Active Protocol: Document 11/03/18 11:15 [facility] (Rec: 11/07/18 08:07 [facility] [id number]) Cervical Spine Range of Motion Cervical Spine Active Testing Position Sitting Flexion 33 Extension 17 Rotation Left 55 Rotation Right 45 Lateral Flexion Left 19 Lateral Flexion Right 25 Comments patient reported pain with all cervical motions, worst with extension and left sidebending . PT-OP-M Strength Start: 10/04/18 08:08 Freq: Status: Active Protocol: Document 11/03/18 11:15 [facility] (Rec: 11/07/18 08:10 [facility] [id number]) Cervical Spine Strength Cervical Spine Manual Muscle Testing Reason Not Measured Orthopedic Precautions Pain Shoulder Strength Shoulder Manual Muscle Testing rupert Flexion 4 Good Extension 4 Good Abduction (C5) 4- Good- External Rotation 4- Good- Internal Rotation 4 Good Elbow/Forearm Strength Elbow and Forearm Manual Muscle Testing rupert Flexion (C6) 4+ Good+ Extension (C7) 4+ Good+ Comments mild pain left PT-OP-Q Treatments Start: 10/04/18 08:08 Freq: Status: Active Protocol: Document 12/06/18 15:49 SA (Rec: 12/06/18 16:03 SA [email or web address]) Cardio Equipment Recumbent Stepper (Sci-Fit) Duration (Minutes) 10 Resistance 2.5-4.0 Seat Position 12 Therapeutic Exercises Supine Exercises cervical rot Reps/Minutes 8x Comments pain-free ROM serratus punch Equipment Used 2# Reps/Minutes 15 pec stretch Reps/Minutes 3 min Comments passive, manual Prone Exercises I, T Reps/Minutes 15x each Comments verbal and manual scapular cues Standing Exercises doorway stretch Reps/Minutes 2x30 Scapular Rows Side bilateral Resistance 3# TB Reps/Minutes 2 x 10 Comments Cues for posture Manual Therapy Treatment Soft Tissue Mobilization STM/MFR Body Location upper trap, posterior cervical reg, suboccipital release, SCM Mobilization Type Myofascial Release Trigger Point Release Intensity/Depth Moderate Body Position Hooklying Manual Traction Cervical Reps/Duration 3 min Comments very gentle for muscle relaxation and pain management Taping postural taping Type of Tape Kinesio Tape Comments 2 I strips between scapula, I strip each side T10 to anterior shoulder (both for postural correction) PT-OP-R Modalities Start: 10/04/18 08:08 Freq: Status: Active Protocol: Document 12/06/18 15:49 SA (Rec: 12/06/18 16:03 SA [email or web address]) Electric Stimulation Electric Stimulation c/s, [place] Duration (Minutes) 15 Intensity 11 Target/Sweep Sweep Patient Position Hooklying Combined With Heat/Cold Cold Pack PT-OP-S Aquatic Treatment Start: 10/04/18 08:08 Freq: Status: Active Protocol: Document 10/14/18 10:15 LJ (Rec: 10/14/18 13:56 LJ [email or web address]) Aquatics Treatment Pool Entry/Exit Assistance Independent Water Walking straight leg march with straight UE's Water Level Neck Level Walking Equipment Resistance Fins Level of Assistance Verbal Cues Comments UE paddles sideways with shld ab/ad Water Level Neck Level Walking Equipment Resistance Fins Level of Assistance Verbal Cues Comments UE paddles Backward walking with reverse breastroke UE's Water Level Neck Level Walking Equipment Resistance Fins Level of Assistance Verbal Cues Comments UE paddles forward with breastroke UE's Water Level Neck Level Walking Equipment Resistance Fins Level of Assistance Verbal Cues Comments UE paddles Upper Extremity Exercises shld IR/ER Water Level Neck Level Reps/Duration 10x 2 Comments blue fins, green aqualogix bells shld circles Reps/Duration 10x2 Comments CW, CCW; fins and bells as above shld flex/ext Body Position Standing Water Level Chest Level Reps/Duration 10x Comments equipment as above hor ab/ad Water Level Neck Level Reps/Duration 10x2 Comments equipment as above Upper Extremity Stretches forward walking w/UE paddles Water Level Neck Level Equipment UE paddles Reps/Duration 30 M varying depths corner stretch Body Position Standing Water Level Chest Level Reps/Duration 2x Spinal Exercises cervical SB Body Position Standing Water Level Neck Level Reps/Duration 5x Comments painfree ROM cervical rotation Body Position Standing Equipment Neck Float Reps/Duration 5x Comments painfree ROM [place] Activities Other Activities bike, ski, abd/add, crossovers , v sit bike, pendulum, lateral pulldowns 10 sec increments Equipment flotation belt, OPTIMIZER[employer] barbells Swim Strokes sidestroke Laps/Duration 15m Chi Chi Duration (Minutes) 5 PT-OP-T Assessment and Plan Start: 10/04/18 08:08 Freq: Status: Active Protocol: Document 12/06/18 15:49 SA (Rec: 12/06/18 16:03 SA [email or web address]) Physical Therapy Assessment Progress Towards Goals Progress Towards Goals Progressing Toward Goals Progress Comments Neck disability index improved from 56% to 36%, pt rates pain with driving and other ADLs as 5/10 when is used to be 7-8/10 and reports there are mornings when he wakes up with no pain at all. Assessment Summary Assessment Pt tolerates 35-40 minutes of land based ther ex with no increase in sx and is mostly IND with HEP, occasional review of body mexhanics and posture during ther ex. Physical Therapy Plan Next Visit Focus/Plan Next Note Type Progress Note Next Visit Plan Continue to progress core and scapular strengthening as tolerated.
--- NOTE | 2018-12-06 17:21 | PT.OTRE ---
Current Diagnoses Arthrodesis status (12/06/18) Provider Visit Care Team Role Provider Type Briseida Dominguez MD Attending Provider Physician Primary Care Provider Specialty: Physical Medicine and Rehab Address: [address] [place] [address], [id number] Email: Physical Therapy Re-Evaluation PT-OP-A Visit Information Start: 10/04/18 08:08 Freq: Status: Active Protocol: Document 12/06/18 17:11 [facility] (Rec: 12/06/18 17:21 [facility] [id number]) Out-Patient Physical Therapy Visit Information Visit Information Visit Type Re-Evaluation PT-OP-B Current Condition Start: 10/04/18 08:08 Freq: Status: Active Protocol: Document 10/04/18 11:20 [facility] (Rec: 10/04/18 11:54 [facility] [id number]) Current Condition History of Current Condition Onset Date 06/28/18 Current Complaints neck pain, weakness, activity intolerance History of Current Condition L and I claim injury date 10/23. Prior cervical spine fusion. On 06/28/18 removal of hardware C6-7 and fusion of C5-6. X-ray 09/30/18 showed good healing. Order for physical therapy 08/09/18, not seen until today due to insurance approval miscommunication. Prescription is for ROM to torso, pecs, shoulders, cervical spine as able, then strengthen. Reports unable to tolerate wearing cervical brace. Dysphagia issues since surgery , seeing ENT. Improved sensation in left hand since the surgery, previously numb. Patient reports since surgery with any exacerbation of pain he requires less time to decrease the symptoms. States has been doing some exercises recently at the pool : LE's only. Precautions; patient reports physician advised he use snorkel for any swimming, no other restrictions. Additionally reports TMJ injury sustained from [facility] eval prior to his surgery, not yet being treated for this injury. Treatment Goals Patient/Caregiver Goals Realistic exercise plan to continue after PT, know limitations. Prior Functional Status Baseline Function- ADL's Independent Baseline Function- Mobility Independent Baseline Function- Gait indep Personal Factors Other Personal Factors That May Effect DM, ESPINOSA, [place], jaw pain, memory Therapy/Recovery loss, TBI PT-OP-C Subjective Start: 10/04/18 08:08 Freq: Status: Active Protocol: Document 12/06/18 15:49 [facility] (Rec: 12/06/18 16:03 [facility] [email or web address]) OP-PT Subjective Patient Comments Patient Comments No muscle cramps over the last week. Taping seems to help, doing HEP consistantly. PT-OP-G Mobility & Gait Start: 10/04/18 08:08 Freq: Status: Active Protocol: Document 10/04/18 11:20 [facility] (Rec: 10/04/18 15:11 [facility] [id number]) OP Gait Assessment Gait Gait Assistance Required: Independent Factors Limiting Gait Function Factors Limiting Gait Function Pain Comments Gait Comments Able to ambulate household and short community distances, requires frequent rest due to back pain. PT-OP-J Posture/Palpation/Skin Start: 10/04/18 08:08 Freq: Status: Active Protocol: Document 10/04/18 11:20 [facility] (Rec: 10/04/18 15:11 [facility] [id number]) Posture Evaluation Position Sitting Head/C-Spine Posture Forward Head T-Spine Posture Increased Kyphosis Shoulder Posture (R) Rounded (L) Forward Scapula Posture (L) Protracted (R) Protracted Arm Posture (L) Internally Rotated (R) Internally Rotated Comments Posture Comments mod Dowager's hump Palpation Assessment Location One Palpation Location upper traps, levator scap, subocciptal, rhomboids Palpation Findings Soft Tissue Tightness Muscle Guarding Tenderness Skin Assessment Incisional Assessment Incision Appearance/Comments well healed anterior neck with good scar mobility; patient reports he massages with oil every day. PT-OP-K Range of Motion Start: 10/04/18 08:08 Freq: Status: Active Protocol: Document 11/03/18 11:15 [facility] (Rec: 11/07/18 08:07 [facility] [id number]) Cervical Spine Range of Motion Cervical Spine Active Testing Position Sitting Flexion 33 Extension 17 Rotation Left 55 Rotation Right 45 Lateral Flexion Left 19 Lateral Flexion Right 25 Comments patient reported pain with all cervical motions, worst with extension and left sidebending . PT-OP-M Strength Start: 10/04/18 08:08 Freq: Status: Active Protocol: Document 11/03/18 11:15 [facility] (Rec: 11/07/18 08:10 [facility] [id number]) Cervical Spine Strength Cervical Spine Manual Muscle Testing Reason Not Measured Orthopedic Precautions Pain Shoulder Strength Shoulder Manual Muscle Testing rupert Flexion 4 Good Extension 4 Good Abduction (C5) 4- Good- External Rotation 4- Good- Internal Rotation 4 Good Elbow/Forearm Strength Elbow and Forearm Manual Muscle Testing rupert Flexion (C6) 4+ Good+ Extension (C7) 4+ Good+ Comments mild pain left PT-OP-Q Treatments Start: 10/04/18 08:08 Freq: Status: Active Protocol: Document 12/06/18 15:49 [facility] (Rec: 12/06/18 16:03 [facility] [email or web address]) Cardio Equipment Recumbent Stepper (Sci-Fit) Duration (Minutes) 10 Resistance 2.5-4.0 Seat Position 12 Therapeutic Exercises Supine Exercises cervical rot Reps/Minutes 8x Comments pain-free ROM serratus punch Equipment Used 2# Reps/Minutes 15 pec stretch Reps/Minutes 3 min Comments passive, manual Prone Exercises I, T Reps/Minutes 15x each Comments verbal and manual scapular cues Standing Exercises doorway stretch Reps/Minutes 2x30 Scapular Rows Side bilateral Resistance 3# TB Reps/Minutes 2 x 10 Comments Cues for posture Manual Therapy Treatment Soft Tissue Mobilization STM/MFR Body Location upper trap, posterior cervical reg, suboccipital release, SCM Mobilization Type Myofascial Release Trigger Point Release Intensity/Depth Moderate Body Position Hooklying Manual Traction Cervical Reps/Duration 3 min Comments very gentle for muscle relaxation and pain management Taping postural taping Type of Tape Kinesio Tape Comments 2 I strips between scapula, I strip each side T10 to anterior shoulder (both for postural correction) PT-OP-R Modalities Start: 10/04/18 08:08 Freq: Status: Active Protocol: Document 12/06/18 15:49 (Rec: 12/06/18 16:03 [email or web address]) Electric Stimulation Electric Stimulation c/s, [place] Duration (Minutes) 15 Intensity 11 Target/Sweep Sweep Patient Position Hooklying Combined With Heat/Cold Cold Pack PT-OP-T Assessment and Plan Start: 10/04/18 08:08 Freq: Status: Active Protocol: Document 12/06/18 17:11 [facility] (Rec: 12/06/18 17:21 [facility] [id number]) Physical Therapy Assessment Goals 5 Impairment postural dysfunction Short Term Goal (STG) Patient to be instructed in neutral postural alignment and body mechancis 11/03/18: achieved STG Duration goal met Care Home Goal (LTG) Patient to demonstrate good understanding of posture and body mechanics principles for neck protection and optimal function in the home with ADL' s and with usual activities. 11/03/18: good progress 12/06/18: mostly met, will need instruction in more physically challenging tasks LTG Duration 01/13/19 4 Impairment ROM and strength impairments in neck and shoulders Short Term Goal (STG) Instruct patient in aquatic exercise program and HEP 11/03/18: completed instruction in aquatic exercise program and patient compliant. Continue to progress HEP. STG Duration goal met Care Home Goal (LTG) Patient will be independent with HEP and community-based exercise program 12/06/18: continue to progress patients ex program with good tolerance LTG Duration 01/13/19 3 Impairment activity tolerance Short Term Goal (STG) Patient able to tolerate 45 min aquatic exercise program without an increase in pain for purposes of long-term pain management and fitness 11/03/18: goal met STG Duration goal met Care Home Goal (LTG) Patient will be able to tolerate 45 min land-based exercise session with emphasis on postural correction, ROM, and strengthening without an increase in pain for purposes of long-term fitness and pain managment LTG Duration 01/13/19 2 Impairment Neck disability index score 56 % Short Term Goal (STG) Decrease disability index score to no greater than 35% 11/03/18: goal progress 12/06/18: 36%. 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 Assessment Summary Assessment Pt tolerates 35-40 minutes of land based ther ex with no increase in sx and is mostly IND with HEP, occasional review of body mexhanics and posture during ther ex. Continuing to progress his exercise program Physical Therapy Plan Frequency and Duration Frequency of Treatment 2x/Week Duration of Treatment 6 wks Plan of Care Start Date 12/06/18 Plan of Care End Date 01/13/19 Therapeutic Interventions Therapeutic Interventions Aquatic Therapy Home Exercise Program Manual Therapy Neuromuscular Re-education Patient/Caregiver Education Self-Care/Home Management Soft Tissue Mobilization Therapeutic Activities Therapeutic Exercises Next Visit Focus/Plan Next Note Type Treatment Note Next Visit Plan Continue PT go progress with core and scapular strengthening, gentle cervical strengthening, body mechanics education to help him return to his previously active lifestyle.
--- NOTE | 2018-12-06 17:22 | PT.OPPOC ---
Current Diagnoses Arthrodesis status (12/06/18) Provider Visit Care Team Role Provider Type Briseida Dominguez MD Attending Provider Physician Primary Care Provider Specialty: Physical Medicine and Rehab Address: [address] [place] [address], [id number] Email: Plan Of Care PT-OP-T Assessment and Plan Start: 10/04/18 08:08 Freq: Status: Active Protocol: Document 12/06/18 17:11 [facility] (Rec: 12/06/18 17:21 [facility] [id number]) Physical Therapy Assessment Goals 5 Impairment postural dysfunction Short Term Goal (STG) Patient to be instructed in neutral postural alignment and body mechancis 11/03/18: achieved STG Duration goal met Halfway Goal (LTG) Patient to demonstrate good understanding of posture and body mechanics principles for neck protection and optimal function in the home with ADL' s and with usual activities. 11/03/18: good progress 12/06/18: mostly met, will need instruction in more physically challenging tasks LTG Duration 01/13/19 4 Impairment ROM and strength impairments in neck and shoulders Short Term Goal (STG) Instruct patient in aquatic exercise program and HEP 11/03/18: completed instruction in aquatic exercise program and patient compliant. Continue to progress HEP. STG Duration goal met Halfway Goal (LTG) Patient will be independent with HEP and community-based exercise program 12/06/18: continue to progress patients ex program with good tolerance LTG Duration 01/13/19 3 Impairment activity tolerance Short Term Goal (STG) Patient able to tolerate 45 min aquatic exercise program without an increase in pain for purposes of long-term pain management and fitness 11/03/18: goal met STG Duration goal met Halfway Goal (LTG) Patient will be able to tolerate 45 min land-based exercise session with emphasis on postural correction, ROM, and strengthening without an increase in pain for purposes of long-term fitness and pain managment LTG Duration 01/13/19 2 Impairment Neck disability index score 56 % Short Term Goal (STG) Decrease disability index score to no greater than 35% 11/03/18: goal progress 12/06/18: 36%. STG Duration 6 wks Halfway Goal (LTG) Decrease disability index score to no greater than 20% 12/06/18: good goal progress LTG Duration 01/13/19 1 Impairment neck pain Halfway Goal (LTG) Pain no greater than 2/10 with usual activities 11/03/18: minimal progress LTG Duration 01/13/19 Progress Towards Goals Progress Towards Goals Progressing Toward Goals Progress Comments Neck disability index improved from 56% to 36%, pt rates pain with driving and other ADLs as 5/10 when is used to be 7-8/10 and reports there are mornings when he wakes up with no pain at all. Assessment Summary Assessment Pt tolerates 35-40 minutes of land based ther ex with no increase in sx and is mostly IND with HEP, occasional review of body mexhanics and posture during ther ex. Continuing to progress his exercise program Physical Therapy Plan Frequency and Duration Frequency of Treatment 2x/Week Duration of Treatment 6 wks Plan of Care Start Date 12/06/18 Plan of Care End Date 01/13/19 Therapeutic Interventions Therapeutic Interventions Aquatic Therapy Home Exercise Program Manual Therapy Neuromuscular Re-education Patient/Caregiver Education Self-Care/Home Management Soft Tissue Mobilization Therapeutic Activities Therapeutic Exercises Next Visit Focus/Plan Next Note Type Treatment Note Next Visit Plan Continue PT go progress with core and scapular strengthening, gentle cervical strengthening, body mechanics education to help him return to his previously active lifestyle. Plan of Care Dates Plan of Care Start Date 12/06/18 Plan of Care End Date 01/13/19 Please Sign and Return: I have reviewed this Plan of Care and certify that the skilled therapy services above are required to meet the patient?s needs. Physician Signature Date Printed Name and Credentials Clinical Instructor Signature Printed Name and Credentials
--- NOTE | 2018-12-19 12:19 | PT.OTN ---
Current Diagnoses Arthrodesis status (12/19/18) Physical Therapy Treatment Note PT-OP-A Visit Information Start: 10/04/18 08:08 Freq: Status: Active Protocol: Document 12/19/18 09:00 (Rec: 12/19/18 12:19 [email or web address]) Out-Patient Physical Therapy Visit Information Visit Information Visit Type Treatment Note Visit Start Time 09:00 Visit Stop Time 09:45 Total Visit Minutes 45 Visit Number 17 Number of TOBACCO FEEDER CATCHER Visits 0 PT-OP-B Current Condition Start: 10/04/18 08:08 Freq: Status: Active Protocol: Document 10/04/18 11:20 [facility] (Rec: 10/04/18 11:54 [facility] [id number]) Current Condition History of Current Condition Onset Date 06/28/18 Current Complaints neck pain, weakness, activity intolerance History of Current Condition L and I claim injury date 10/23. Prior cervical spine fusion. On 06/28/18 removal of hardware C6-7 and fusion of C5-6. X-ray 09/30/18 showed good healing. Order for physical therapy 08/09/18, not seen until today due to insurance approval miscommunication. Prescription is for ROM to torso, pecs, shoulders, cervical spine as able, then strengthen. Reports unable to tolerate wearing cervical brace. Dysphagia issues since surgery , seeing ENT. Improved sensation in left hand since the surgery, previously numb. Patient reports since surgery with any exacerbation of pain he requires less time to decrease the symptoms. States has been doing some exercises recently at the pool : LE's only. Precautions; patient reports physician advised he use snorkel for any swimming, no other restrictions. Additionally reports TMJ injury sustained from [facility]HNA[facility] draepr prior to his surgery, not yet being treated for this injury. Treatment Goals Patient/Caregiver Goals Realistic exercise plan to continue after PT, know limitations. Prior Functional Status Baseline Function- ADL's Independent Baseline Function- Mobility Independent Baseline Function- Gait indep Personal Factors Other Personal Factors That May Effect DM, ESPINOSA, [place], jaw pain, memory Therapy/Recovery loss, TBI PT-OP-C Subjective Start: 10/04/18 08:08 Freq: Status: Active Protocol: Document 12/19/18 09:00 [facility] (Rec: 12/19/18 12:19 [facility] [email or web address]) OP-PT Subjective Patient Comments Patient Comments I have some pinching sensation down in L scapula since 2days ago and i dont know why. PT-OP-G Mobility & Gait Start: 10/04/18 08:08 Freq: Status: Active Protocol: Document 10/04/18 11:20 [facility] (Rec: 10/04/18 15:11 [facility] [id number]) OP Gait Assessment Gait Gait Assistance Required: Independent Factors Limiting Gait Function Factors Limiting Gait Function Pain Comments Gait Comments Able to ambulate household and short community distances, requires frequent rest due to back pain. PT-OP-J Posture/Palpation/Skin Start: 10/04/18 08:08 Freq: Status: Active Protocol: Document 10/04/18 11:20 [facility] (Rec: 10/04/18 15:11 [facility] [id number]) Posture Evaluation Position Sitting Head/C-Spine Posture Forward Head T-Spine Posture Increased Kyphosis Shoulder Posture (R) Rounded (L) Forward Scapula Posture (L) Protracted (R) Protracted Arm Posture (L) Internally Rotated (R) Internally Rotated Comments Posture Comments mod Dowager's hump Palpation Assessment Location One Palpation Location upper traps, levator scap, subocciptal, rhomboids Palpation Findings Soft Tissue Tightness Muscle Guarding Tenderness Skin Assessment Incisional Assessment Incision Appearance/Comments well healed anterior neck with good scar mobility; patient reports he massages with oil every day. PT-OP-K Range of Motion Start: 10/04/18 08:08 Freq: Status: Active Protocol: Document 11/03/18 11:15 [facility] (Rec: 11/07/18 08:07 [facility] [id number]) Cervical Spine Range of Motion Cervical Spine Active Testing Position Sitting Flexion 33 Extension 17 Rotation Left 55 Rotation Right 45 Lateral Flexion Left 19 Lateral Flexion Right 25 Comments patient reported pain with all cervical motions, worst with extension and left sidebending . PT-OP-M Strength Start: 10/04/18 08:08 Freq: Status: Active Protocol: Document 11/03/18 11:15 [facility] (Rec: 11/07/18 08:10 [facility] [id number]) Cervical Spine Strength Cervical Spine Manual Muscle Testing Reason Not Measured Orthopedic Precautions Pain Shoulder Strength Shoulder Manual Muscle Testing rupert Flexion 4 Good Extension 4 Good Abduction (C5) 4- Good- External Rotation 4- Good- Internal Rotation 4 Good Elbow/Forearm Strength Elbow and Forearm Manual Muscle Testing rupert Flexion (C6) 4+ Good+ Extension (C7) 4+ Good+ Comments mild pain left PT-OP-Q Treatments Start: 10/04/18 08:08 Freq: Status: Active Protocol: Document 12/19/18 09:00 [facility] (Rec: 12/19/18 12:19 [facility] [email or web address]) Cardio Equipment Recumbent Stepper (Sci-Fit) Duration (Minutes) 6 Resistance 2.5-4.0 Seat Position 12 Therapeutic Exercises Prone Exercises thread the needle Prone Exercise Name quadruped position Side bilateral Reps/Minutes 10 x2 Comments trunk rotation iso prone extension Prone Exercise Name with chin tuck Equipment Used prone against therapy ball Reps/Minutes 20 secs x 3 Comments verbal and manual scapular cues I, T Prone Exercise Name with chin tuck Equipment Used prone against therapy ball Reps/Minutes 10 x 2 Comments verbal and manual scapular cues Standing Exercises shoulder shrug Side bilateral Equipment Used PVC BAR Reps/Minutes 10 x2 sh ext Side bilateral Equipment Used PVC bar Reps/Minutes 1 0x 2 Scapular Rows Side bilateral Resistance 3# TB Reps/Minutes 2 x 10 Comments Cues for posture Manual Therapy Treatment Joint Mobilizations PA mob with C/S movements Joint T1-T4 Direction PA Grade III Body Position Sitting Reps/Duration 10 x3 Comments PA mob with cervical flexion and extension PT-OP-R Modalities Start: 10/04/18 08:08 Freq: Status: Active Protocol: Document 12/06/18 15:49 [facility] (Rec: 12/06/18 16:03 [facility] [email or web address]) Electric Stimulation Electric Stimulation c/s, [place] Duration (Minutes) 15 Intensity 11 Target/Sweep Sweep Patient Position Hooklying Combined With Heat/Cold Cold Pack PT-OP-S Aquatic Treatment Start: 10/04/18 08:08 Freq: Status: Active Protocol: Document 10/14/18 10:15 [facility] (Rec: 10/14/18 13:56 [facility] [email or web address]) Aquatics Treatment Pool Entry/Exit Assistance Independent Water Walking straight leg march with straight UE's Water Level Neck Level Walking Equipment Resistance Fins Level of Assistance Verbal Cues Comments UE paddles sideways with shld ab/ad Water Level Neck Level Walking Equipment Resistance Fins Level of Assistance Verbal Cues Comments UE paddles Backward walking with reverse breastroke UE's Water Level Neck Level Walking Equipment Resistance Fins Level of Assistance Verbal Cues Comments UE paddles forward with breastroke UE's Water Level Neck Level Walking Equipment Resistance Fins Level of Assistance Verbal Cues Comments UE paddles Upper Extremity Exercises shld IR/ER Water Level Neck Level Reps/Duration 10x 2 Comments blue fins, green aqualogix bells shld circles Reps/Duration 10x2 Comments CW, CCW; fins and bells as above shld flex/ext Body Position Standing Water Level Chest Level Reps/Duration 10x Comments equipment as above hor ab/ad Water Level Neck Level Reps/Duration 10x2 Comments equipment as above Upper Extremity Stretches forward walking w/UE paddles Water Level Neck Level Equipment UE paddles Reps/Duration 30 M varying depths corner stretch Body Position Standing Water Level Chest Level Reps/Duration 2x Spinal Exercises cervical SB Body Position Standing Water Level Neck Level Reps/Duration 5x Comments painfree ROM cervical rotation Body Position Standing Equipment Neck Float Reps/Duration 5x Comments painfree ROM [place] [employer] Activities Other Activities bike, ski, abd/add, crossovers , v sit bike, pendulum, lateral pulldowns 10 sec increments Equipment flotation belt, med barbells Swim Strokes sidestroke Laps/Duration 15m Chi Chi Duration (Minutes) 5 PT-OP-T Assessment and Plan Start: 10/04/18 08:08 Freq: Status: Active Protocol: Document 12/19/18 09:00 (Rec: 12/19/18 12:19 [email or web address]) Physical Therapy Assessment Assessment Summary Assessment Pt az tx well with 30- 35 mins of therex today. Focused on strength of trunk extensors , below C/S segmental mobility , and scapular mobility. Pt appears to have better understanding of good posture Physical Therapy Plan Next Visit Focus/Plan Next Note Type Treatment Note Next Visit Plan Continue PT go progress with core and scapular strengthening, gentle cervical strengthening, body mechanics education to help him return to his previously active lifestyle.
--- NOTE | 2018-12-22 10:30 | PT.OTN ---
Current Diagnoses Arthrodesis status (12/22/18) Physical Therapy Treatment Note PT-OP-A Visit Information Start: 10/04/18 08:08 Freq: Status: Active Protocol: Document 12/22/18 10:30 DLM (Rec: 12/22/18 16:10 DLM [id number]) Out-Patient Physical Therapy Visit Information Visit Information Visit Type Treatment Note Visit Start Time 10:30 Visit Stop Time 11:20 Total Visit Minutes 50 Visit Number 18 Number of ASSURANCE OFFICER Visits 0 Evaluation Information Evaluation Date 10/04/18 PT-OP-B Current Condition Start: 10/04/18 08:08 Freq: Status: Active Protocol: Document 10/04/18 11:20 SAK (Rec: 10/04/18 11:54 SAK [id number]) Current Condition History of Current Condition Onset Date 06/28/18 Current Complaints neck pain, weakness, activity intolerance History of Current Condition L and I claim injury date 10/23. Prior cervical spine fusion. On 06/28/18 removal of hardware C6-7 and fusion of C5-6. X-ray 09/30/18 showed good healing. Order for physical therapy 08/09/18, not seen until today due to insurance approval miscommunication. Prescription is for ROM to torso, pecs, shoulders, cervical spine as able, then strengthen. Reports unable to tolerate wearing cervical brace. Dysphagia issues since surgery , seeing ENT. Improved sensation in left hand since the surgery, previously numb. Patient reports since surgery with any exacerbation of pain he requires less time to decrease the symptoms. States has been doing some exercises recently at the pool : LE's only. Precautions; patient reports physician advised he use snorkel for any swimming, no other restrictions. Additionally reports TMJ injury sustained from MAHNAZ eval prior to his surgery, not yet being treated for this injury. Treatment Goals Patient/Caregiver Goals Realistic exercise plan to continue after PT, know limitations. Prior Functional Status Baseline Function- ADL's Independent Baseline Function- Mobility Independent Baseline Function- Gait indep Personal Factors Other Personal Factors That May Effect DM, ESPINOSA, AKIAK, jaw pain, memory Therapy/Recovery loss, TBI PT-OP-C Subjective Start: 10/04/18 08:08 Freq: Status: Active Protocol: Document 12/22/18 10:30 DLM (Rec: 12/22/18 16:10 DLM [id number]) OP-PT Subjective Patient Comments Patient Comments He is sore in his upper back from the joint mobs done last visit. He has soreness between his shoulder blades today. He continues to vomit 4-5x/week. He has been exercising at home. He feels the taping helps. Patient Reported Progress Improving OP-PT Pain Assessment Location Upper Posterior Back Pain Location Details between shoulder blades Intensity 6 Scale Used Numeric (1 - 10) Description Aching Posterior Neck Pain Location Details and anterior scar tissue is tight Intensity 4 Scale Used Numeric (1 - 10) Description Aching Home Pain Medication Use Pain Medications Used No: He has stopped taking all pain meds PT-OP-G Mobility & Gait Start: 10/04/18 08:08 Freq: Status: Active Protocol: Document 10/04/18 11:20 SAK (Rec: 10/04/18 15:11 [facility] [id number]) OP Gait Assessment Gait Gait Assistance Required: Independent Factors Limiting Gait Function Factors Limiting Gait Function Pain Comments Gait Comments Able to ambulate household and short community distances, requires frequent rest due to back pain. PT-OP-J Posture/Palpation/Skin Start: 10/04/18 08:08 Freq: Status: Active Protocol: Document 10/04/18 11:20 SAK (Rec: 10/04/18 15:11 [facility] [id number]) Posture Evaluation Position Sitting Head/C-Spine Posture Forward Head T-Spine Posture Increased Kyphosis Shoulder Posture (R) Rounded (L) Forward Scapula Posture (L) Protracted (R) Protracted Arm Posture (L) Internally Rotated (R) Internally Rotated Comments Posture Comments mod Dowager's hump Palpation Assessment Location One Palpation Location upper traps, levator scap, subocciptal, rhomboids Palpation Findings Soft Tissue Tightness Muscle Guarding Tenderness Skin Assessment Incisional Assessment Incision Appearance/Comments well healed anterior neck with good scar mobility; patient reports he massages with oil every day. PT-OP-K Range of Motion Start: 10/04/18 08:08 Freq: Status: Active Protocol: Document 11/03/18 11:15 SAK (Rec: 11/07/18 08:07 [facility] [id number]) Cervical Spine Range of Motion Cervical Spine Active Testing Position Sitting Flexion 33 Extension 17 Rotation Left 55 Rotation Right 45 Lateral Flexion Left 19 Lateral Flexion Right 25 Comments patient reported pain with all cervical motions, worst with extension and left sidebending . PT-OP-M Strength Start: 10/04/18 08:08 Freq: Status: Active Protocol: Document 11/03/18 11:15 SAK (Rec: 11/07/18 08:10 SAK [id number]) Cervical Spine Strength Cervical Spine Manual Muscle Testing Reason Not Measured Orthopedic Precautions Pain Shoulder Strength Shoulder Manual Muscle Testing rupert Flexion 4 Good Extension 4 Good Abduction (C5) 4- Good- External Rotation 4- Good- Internal Rotation 4 Good Elbow/Forearm Strength Elbow and Forearm Manual Muscle Testing rupert Flexion (C6) 4+ Good+ Extension (C7) 4+ Good+ Comments mild pain left PT-OP-Q Treatments Start: 10/04/18 08:08 Freq: Status: Active Protocol: Document 12/22/18 10:30 DLM (Rec: 12/22/18 16:10 DLM [id number]) Cardio Equipment Recumbent Elliptical ([employer]) Duration (Minutes) 10 Resistance 7-10 Other UE's and LE's Recumbent Stepper (Sci-Fit) Other not available this visit Therapeutic Exercises Supine Exercises Triceps Supine Exercise Name over-head triceps extension Side bilateral Resistance 5# Reps/Minutes x 10 reps cervical rot Reps/Minutes x 5 reps shoulder flex Side bilateral Resistance 5# Reps/Minutes x 10 reps Comments pt using 5# at home serratus punch Side bilateral Resistance 5# Reps/Minutes X 10 Reps Comments pt using 5# at home should hor ab Side bilateral Resistance 5# Reps/Minutes x 10 reps Comments education to stop at table level, pt using 5# at home Prone Exercises thread the needle Prone Exercise Name quadruped position Side bilateral Reps/Minutes 10 x2 Comments trunk rotation iso prone extension Prone Exercise Name with chin tuck Equipment Used prone on therapy ball Reps/Minutes 20 secs x 3 Comments verbal and manual scapular cues I, T Prone Exercise Name with chin tuck, added Y Side bilateral Equipment Used prone on therapy ball Reps/Minutes 15 reps each Comments verbal cues Standing Exercises doorway stretch Reps/Minutes 30 sec hold x 2 reps Manual Therapy Treatment Taping postural taping Body Location upper thoracic Type of Tape Kinesio Tape Comments 2 I strips between scapula, I strip each side T10 to anterior shoulder (both for postural correction) Self-Care/Home Management Treatment Education Patient Education Home Exercise Program Posture Safety Other Education answered his questions PT-OP-T Assessment and Plan Start: 10/04/18 08:08 Freq: Status: Active Protocol: Document 12/22/18 10:30 DLM (Rec: 12/22/18 16:10 DLM [id number]) Physical Therapy Assessment Goals 5 Impairment postural dysfunction Short Term Goal (STG) Patient to be instructed in neutral postural alignment and body mechanics 11/03/18: achieved STG Duration goal met Steel Analyst Goal (LTG) Patient to demonstrate good understanding of posture and body mechanics principles for neck protection and optimal function in the home with ADL' s and with usual activities. 11/03/18: good progress 12/06/18: mostly met, will need instruction in more physically challenging tasks LTG Duration 01/13/19 4 Impairment ROM and strength impairments in neck and shoulders Short Term Goal (STG) Instruct patient in aquatic exercise program and HEP 11/03/18: completed instruction in aquatic exercise program and patient compliant. Continue to progress HEP. STG Duration goal met [facility] Goal (LTG) Patient will be independent with HEP and community-based exercise program 12/06/18: continue to progress patients ex program with good tolerance LTG Duration 01/13/19 3 Impairment activity tolerance Short Term Goal (STG) Patient able to tolerate 45 min aquatic exercise program without an increase in pain for purposes of long-term pain management and fitness 11/03/18: goal met STG Duration goal met Steel Analyst Goal (LTG) Patient will be able to tolerate 45 min land-based exercise session with emphasis on postural correction, ROM, and strengthening without an increase in pain for purposes of long-term fitness and pain managment LTG Duration 01/13/19 2 Impairment Neck disability index score 56 % Short Term Goal (STG) Decrease disability index score to no greater than 35% 11/03/18: goal progress 12/06/18: 36%. STG Duration 6 wks [facility] Goal (LTG) Decrease disability index score to no greater than 20% 12/06/18: good goal progress LTG Duration 01/13/19 1 Impairment neck pain [facility] Goal (LTG) Pain no greater than 2/10 with usual activities 11/03/18: minimal progress LTG Duration 01/13/19 Progress Towards Goals Progress Towards Goals Progressing Toward Goals Assessment Summary Assessment He tolerated his exercises well. He is doing higher weights at home than he was doing in the clinic. He feels the taping still helps. He is still sore from joint mobs last visit so held them today. Physical Therapy Plan Frequency and Duration Frequency of Treatment 2x/Week Duration of Treatment 6 wks Plan of Care Start Date 12/06/18 Plan of Care End Date 01/13/19 Therapeutic Interventions Therapeutic Interventions Aquatic Therapy Home Exercise Program Manual Therapy Neuromuscular Re-education Patient/Caregiver Education Self-Care/Home Management Soft Tissue Mobilization Therapeutic Activities Therapeutic Exercises Next Visit Focus/Plan Next Note Type Treatment Note Next Visit Plan Continue PT go progress with core and scapular strengthening, gentle cervical strengthening, body mechanics education to help him return to his previously active lifestyle.
--- NOTE | 2018-12-27 13:00 | PT.OTN ---
Current Diagnoses Arthrodesis status (12/27/18) Physical Therapy Treatment Note PT-OP-A Visit Information Start: 10/04/18 08:08 Freq: Status: Active Protocol: Document 12/27/18 13:00 DLM (Rec: 12/27/18 15:09 DLM [id number]) Out-Patient Physical Therapy Visit Information Visit Information Visit Type Treatment Note Visit Start Time 13:00 Visit Stop Time 13:42 Total Visit Minutes 42 Visit Number 19 Number of PROVINCE ARCHIVIST Visits 0 Evaluation Information Evaluation Date 10/04/18 PT-OP-B Current Condition Start: 10/04/18 08:08 Freq: Status: Active Protocol: Document 10/04/18 11:20 SAK (Rec: 10/04/18 11:54 SAK [id number]) Current Condition History of Current Condition Onset Date 06/28/18 Current Complaints neck pain, weakness, activity intolerance History of Current Condition L and I claim injury date 10/23. Prior cervical spine fusion. On 06/28/18 removal of hardware C6-7 and fusion of C5-6. X-ray 09/30/18 showed good healing. Order for physical therapy 08/09/18, not seen until today due to insurance approval miscommunication. Prescription is for ROM to torso, pecs, shoulders, cervical spine as able, then strengthen. Reports unable to tolerate wearing cervical brace. Dysphagia issues since surgery , seeing ENT. Improved sensation in left hand since the surgery, previously numb. Patient reports since surgery with any exacerbation of pain he requires less time to decrease the symptoms. States has been doing some exercises recently at the pool : LE's only. Precautions; patient reports physician advised he use snorkel for any swimming, no other restrictions. Additionally reports TMJ injury sustained from MAHNA[facility] eval prior to his surgery, not yet being treated for this injury. Treatment Goals Patient/Caregiver Goals Realistic exercise plan to continue after PT, know limitations. Prior Functional Status Baseline Function- ADL's Independent Baseline Function- Mobility Independent Baseline Function- Gait indep Personal Factors Other Personal Factors That May Effect DM, ESPINOSA, INAJA, jaw pain, memory Therapy/Recovery loss, TBI PT-OP-C Subjective Start: 10/04/18 08:08 Freq: Status: Active Protocol: Document 12/27/18 13:00 DLM (Rec: 12/27/18 15:09 DLM [id number]) OP-PT Subjective Patient Comments Patient Comments The tape did not help last time so he took it off. He reports he is doing well with his execises. OP-PT Pain Assessment Location Posterior Neck Pain Location Details and anterior scar tissue is tight Intensity 4 Scale Used Numeric (1 - 10) Description Aching PT-OP-G Mobility & Gait Start: 10/04/18 08:08 Freq: Status: Active Protocol: Document 10/04/18 11:20 [facility] (Rec: 10/04/18 15:11 [facility] [id number]) OP Gait Assessment Gait Gait Assistance Required: Independent Factors Limiting Gait Function Factors Limiting Gait Function Pain Comments Gait Comments Able to ambulate household and short community distances, requires frequent rest due to back pain. PT-OP-J Posture/Palpation/Skin Start: 10/04/18 08:08 Freq: Status: Active Protocol: Document 10/04/18 11:20 [facility] (Rec: 10/04/18 15:11 [facility] [id number]) Posture Evaluation Position Sitting Head/C-Spine Posture Forward Head T-Spine Posture Increased Kyphosis Shoulder Posture (R) Rounded (L) Forward Scapula Posture (L) Protracted (R) Protracted Arm Posture (L) Internally Rotated (R) Internally Rotated Comments Posture Comments mod Dowager's hump Palpation Assessment Location One Palpation Location upper traps, levator scap, subocciptal, rhomboids Palpation Findings Soft Tissue Tightness Muscle Guarding Tenderness Skin Assessment Incisional Assessment Incision Appearance/Comments well healed anterior neck with good scar mobility; patient reports he massages with oil every day. PT-OP-K Range of Motion Start: 10/04/18 08:08 Freq: Status: Active Protocol: Document 11/03/18 11:15 [facility] (Rec: 11/07/18 08:07 [facility] [id number]) Cervical Spine Range of Motion Cervical Spine Active Testing Position Sitting Flexion 33 Extension 17 Rotation Left 55 Rotation Right 45 Lateral Flexion Left 19 Lateral Flexion Right 25 Comments patient reported pain with all cervical motions, worst with extension and left sidebending . PT-OP-M Strength Start: 10/04/18 08:08 Freq: Status: Active Protocol: Document 11/03/18 11:15 [facility] (Rec: 11/07/18 08:10 [facility] [id number]) Cervical Spine Strength Cervical Spine Manual Muscle Testing Reason Not Measured Orthopedic Precautions Pain Shoulder Strength Shoulder Manual Muscle Testing rupert Flexion 4 Good Extension 4 Good Abduction (C5) 4- Good- External Rotation 4- Good- Internal Rotation 4 Good Elbow/Forearm Strength Elbow and Forearm Manual Muscle Testing rupert Flexion (C6) 4+ Good+ Extension (C7) 4+ Good+ Comments mild pain left PT-OP-Q Treatments Start: 10/04/18 08:08 Freq: Status: Active Protocol: Document 12/27/18 13:00 DLM (Rec: 12/27/18 15:09 DLM [id number]) Cardio Equipment Recumbent Elliptical ([employer]) Duration (Minutes) 10 Resistance 7-10 Other UE's and LE's Recumbent Stepper (Sci-Fit) Other not available this visit Therapeutic Exercises Supine Exercises Triceps Supine Exercise Name over-head triceps extension Side bilateral Resistance 4# Reps/Minutes x 10 reps cervical rot Resistance active Reps/Minutes x 5 reps shoulder flex Side bilateral Resistance 4# Reps/Minutes x 15 reps serratus punch Side bilateral Resistance 4# Reps/Minutes x 15 reps should hor abduction Side bilateral Resistance 4# Reps/Minutes x 15 reps Comments education to stop at table level, pt using 5# at home Prone Exercises thread the needle Prone Exercise Name quadruped position Side bilateral Reps/Minutes 10 x2 Comments trunk rotation isometric prone extension Prone Exercise Name with chin tuck Equipment Used prone on therapy ball Reps/Minutes 20 secs x 3 Comments verbal and manual scapular cues I, T Prone Exercise Name with chin tuck Side bilateral Equipment Used prone on therapy ball Reps/Minutes 15 reps each Comments added Y, verbal cues for technique Standing Exercises doorway stretch Reps/Minutes 30 sec hold x 3 reps Self-Care/Home Management Treatment Education Patient Education Home Exercise Program Posture Safety Other Education cautioned him to avoid over- doing exercises at home PT-OP-T Assessment and Plan Start: 10/04/18 08:08 Freq: Status: Active Protocol: Document 12/27/18 13:00 DLM (Rec: 12/27/18 15:09 DL [id number]) Physical Therapy Assessment Goals 5 Impairment postural dysfunction Short Term Goal (STG) Patient to be instructed in neutral postural alignment and body mechancis 11/03/18: achieved STG Duration goal met Assisted Goal (LTG) Patient to demonstrate good understanding of posture and body mechanics principles for neck protection and optimal function in the home with ADL' s and with usual activities. 11/03/18: good progress 12/06/18: mostly met, will need instruction in more physically challenging tasks LTG Duration 01/13/19 4 Impairment ROM and strength impairments in neck and shoulders Short Term Goal (STG) Instruct patient in aquatic exercise program and HEP 11/03/18: completed instruction in aquatic exercise program and patient compliant. Continue to progress HEP. STG Duration goal met Assisted Goal (LTG) Patient will be independent with HEP and community-based exercise program 12/06/18: continue to progress patients ex program with good tolerance LTG Duration 01/13/19 3 Impairment activity tolerance Short Term Goal (STG) Patient able to tolerate 45 min aquatic exercise program without an increase in pain for purposes of long-term pain management and fitness 11/03/18: goal met STG Duration goal met Clinical Laboratory Manager Goal (LTG) Patient will be able to tolerate 45 min land-based exercise session with emphasis on postural correction, ROM, and strengthening without an increase in pain for purposes of long-term fitness and pain managment LTG Duration 01/13/19 2 Impairment Neck disability index score 56 % Short Term Goal (STG) Decrease disability index score to no greater than 35% 11/03/18: goal progress 12/06/18: 36%. STG Duration 6 wks Assisted Goal (LTG) Decrease disability index score to no greater than 20% 12/06/18: good goal progress LTG Duration 01/13/19 1 Impairment neck pain Clinical Laboratory Manager Goal (LTG) Pain no greater than 2/10 with usual activities 11/03/18: minimal progress LTG Duration 01/13/19 Assessment Summary Assessment He reports he is tolerating his exercises well. No increased pain reported today. Physical Therapy Plan Frequency and Duration Frequency of Treatment 2x/Week Duration of Treatment 6 wks Plan of Care Start Date 12/06/18 Plan of Care End Date 01/13/19 Therapeutic Interventions Therapeutic Interventions Aquatic Therapy Home Exercise Program Manual Therapy Neuromuscular Re-education Patient/Caregiver Education Self-Care/Home Management Soft Tissue Mobilization Therapeutic Activities Therapeutic Exercises Next Visit Focus/Plan Next Note Type Treatment Note Next Visit Plan progress exercises as az, cuing for good posture
--- NOTE | 2018-12-29 08:15 | PT.OTN ---
Current Diagnoses Arthrodesis status (12/29/18) Physical Therapy Treatment Note PT-OP-A Visit Information Start: 10/04/18 08:08 Freq: Status: Active Protocol: Document 12/29/18 08:15 DLM (Rec: 12/29/18 09:17 DLM [id number]) Out-Patient Physical Therapy Visit Information Visit Information Visit Type Treatment Note Visit Note do progress note on 01/09 appt Visit Start Time 08:15 Visit Stop Time 09:02 Total Visit Minutes 47 Visit Number 20 Number of FARM GENERAL MANAGER Visits 0 Evaluation Information Evaluation Date 10/04/18 PT-OP-B Current Condition Start: 10/04/18 08:08 Freq: Status: Active Protocol: Document 10/04/18 11:20 SAK (Rec: 10/04/18 11:54 SAK [id number]) Current Condition History of Current Condition Onset Date 06/28/18 Current Complaints neck pain, weakness, activity intolerance History of Current Condition L and I claim injury date 10/23. Prior cervical spine fusion. On 06/28/18 removal of hardware C6-7 and fusion of C5-6. X-ray 09/30/18 showed good healing. Order for physical therapy 08/09/18, not seen until today due to insurance approval miscommunication. Prescription is for ROM to torso, pecs, shoulders, cervical spine as able, then strengthen. Reports unable to tolerate wearing cervical brace. Dysphagia issues since surgery , seeing ENT. Improved sensation in left hand since the surgery, previously numb. Patient reports since surgery with any exacerbation of pain he requires less time to decrease the symptoms. States has been doing some exercises recently at the pool : LE's only. Precautions; patient reports physician advised he use snorkel for any swimming, no other restrictions. 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 Treatment Goals Patient/Caregiver Goals Realistic exercise plan to continue after PT, know limitations. Prior Functional Status Baseline Function- ADL's Independent Baseline Function- Mobility Independent Baseline Function- Gait indep Personal Factors Other Personal Factors That May Effect DM, ESPINOSA, CHILKAT, jaw pain, memory Therapy/Recovery loss, TBI PT-OP-C Subjective Start: 10/04/18 08:08 Freq: Status: Active Protocol: Document 12/29/18 08:15 DLM (Rec: 12/29/18 09:17 [facility] [id number]) OP-PT Subjective Patient Comments Patient Comments He expects his physician to extend his treatment past the 01/13/19 plan of care. His recovery time after exercises and activities is much better. He uses ice and heat to manage any increased soreness at home. Patient Reported Progress Improving OP-PT Pain Assessment Location Posterior Neck Pain Location Details and anterior scar tissue is tight Intensity 4 Scale Used Numeric (1 - 10) Description Aching Home Pain Medication Use Pain Medications Used No: He has stopped taking all pain meds PT-OP-G Mobility & Gait Start: 10/04/18 08:08 Freq: Status: Active Protocol: Document 10/04/18 11:20 SAK (Rec: 10/04/18 15:11 [facility] [id number]) OP Gait Assessment Gait Gait Assistance Required: Independent Factors Limiting Gait Function Factors Limiting Gait Function Pain Comments Gait Comments Able to ambulate household and short community distances, requires frequent rest due to back pain. PT-OP-J Posture/Palpation/Skin Start: 10/04/18 08:08 Freq: Status: Active Protocol: Document 10/04/18 11:20 SAK (Rec: 10/04/18 15:11 [facility] [id number]) Posture Evaluation Position Sitting Head/C-Spine Posture Forward Head T-Spine Posture Increased Kyphosis Shoulder Posture (R) Rounded (L) Forward Scapula Posture (L) Protracted (R) Protracted Arm Posture (L) Internally Rotated (R) Internally Rotated Comments Posture Comments mod Dowager's hump Palpation Assessment Location One Palpation Location upper traps, levator scap, subocciptal, rhomboids Palpation Findings Soft Tissue Tightness Muscle Guarding Tenderness Skin Assessment Incisional Assessment Incision Appearance/Comments well healed anterior neck with good scar mobility; patient reports he massages with oil every day. PT-OP-K Range of Motion Start: 10/04/18 08:08 Freq: Status: Active Protocol: Document 11/03/18 11:15 SAK (Rec: 11/07/18 08:07 SAK [id number]) Cervical Spine Range of Motion Cervical Spine Active Testing Position Sitting Flexion 33 Extension 17 Rotation Left 55 Rotation Right 45 Lateral Flexion Left 19 Lateral Flexion Right 25 Comments patient reported pain with all cervical motions, worst with extension and left sidebending . PT-OP-M Strength Start: 10/04/18 08:08 Freq: Status: Active Protocol: Document 11/03/18 11:15 SAK (Rec: 11/07/18 08:10 SAK [id number]) Cervical Spine Strength Cervical Spine Manual Muscle Testing Reason Not Measured Orthopedic Precautions Pain Shoulder Strength Shoulder Manual Muscle Testing rupert Flexion 4 Good Extension 4 Good Abduction (C5) 4- Good- External Rotation 4- Good- Internal Rotation 4 Good Elbow/Forearm Strength Elbow and Forearm Manual Muscle Testing rupert Flexion (C6) 4+ Good+ Extension (C7) 4+ Good+ Comments mild pain left PT-OP-Q Treatments Start: 10/04/18 08:08 Freq: Status: Active Protocol: Document 12/29/18 08:15 DLM (Rec: 12/29/18 09:17 DLM [id number]) Cardio Equipment Recumbent Elliptical (Vyatta) Duration (Minutes) 10 Resistance 7-10 Other UE's and LE's Recumbent Stepper (Sci-Fit) Other not available this visit Therapeutic Exercises Supine Exercises Triceps Supine Exercise Name over-head tricep extension Side bilateral Resistance 4# Reps/Minutes x 15 reps cervical rot Resistance active Reps/Minutes x 5 reps shoulder flex Side bilateral Resistance 4# Reps/Minutes x 15 reps serratus punch Side bilateral Resistance 4# Reps/Minutes x 15 reps should hor ab Side bilateral Resistance 4# Reps/Minutes x 15 reps Comments education to stop at table level, pt using 5# at home full body stretch Supine Exercise Name postural stretch Equipment Used foam roll Reps/Minutes 5 min Comments UE's at sides Prone Exercises thread the needle Prone Exercise Name quadruped position Side bilateral Reps/Minutes x 15 reps Comments trunk rotation I, T Prone Exercise Name with chin tuck, added Y Side bilateral Resistance 1# Equipment Used prone on therapy ball Reps/Minutes 15 reps each Comments added Y, verbal cues for technique Standing Exercises doorway stretch Reps/Minutes 30 sec hold x 3 reps Comments verbal cues for head position Manual Therapy Treatment Taping postural taping Body Location upper thoracic Type of Tape Kinesio Tape Comments 2 I strips between scapula, I strip each side T10 to anterior shoulder (both for postural correction) Self-Care/Home Management Treatment Education Patient Education Posture Safety Other Education cautioned him to avoid over- doing exercises at home PT-OP-R Modalities Start: 10/04/18 08:08 Freq: Status: Active Protocol: Document 12/06/18 15:49 SA (Rec: 12/06/18 16:03 SA [email or web address]) Electric Stimulation Electric Stimulation c/s, [place] Duration (Minutes) 15 Intensity 11 Target/Sweep Sweep Patient Position Hooklying Combined With Heat/Cold Cold Pack PT-OP-S Aquatic Treatment Start: 10/04/18 08:08 Freq: Status: Active Protocol: Document 10/14/18 10:15 LJ (Rec: 10/14/18 13:56 LJ [email or web address]) Aquatics Treatment Pool Entry/Exit Assistance Independent Water Walking straight leg march with straight UE's Water Level Neck Level Walking Equipment Resistance Fins Level of Assistance Verbal Cues Comments UE paddles sideways with shld ab/ad Water Level Neck Level Walking Equipment Resistance Fins Level of Assistance Verbal Cues Comments UE paddles Backward walking with reverse breastroke UE's Water Level Neck Level Walking Equipment Resistance Fins Level of Assistance Verbal Cues Comments UE paddles forward with breastroke UE's Water Level Neck Level Walking Equipment Resistance Fins Level of Assistance Verbal Cues Comments UE paddles Upper Extremity Exercises shld IR/ER Water Level Neck Level Reps/Duration 10x 2 Comments blue fins, green aqualogix bells shld circles Reps/Duration 10x2 Comments CW, CCW; fins and bells as above shld flex/ext Body Position Standing Water Level Chest Level Reps/Duration 10x Comments equipment as above hor ab/ad Water Level Neck Level Reps/Duration 10x2 Comments equipment as above Upper Extremity Stretches forward walking w/UE paddles Water Level Neck Level Equipment UE paddles Reps/Duration 30 M varying depths corner stretch Body Position Standing Water Level Chest Level Reps/Duration 2x Spinal Exercises cervical SB Body Position Standing Water Level Neck Level Reps/Duration 5x Comments painfree ROM cervical rotation Body Position Standing Equipment Neck Float Reps/Duration 5x Comments painfree ROM [place] Activities Other Activities bike, ski, abd/add, crossovers , v sit bike, pendulum, lateral pulldowns 10 sec increments Equipment flotation belt, med barbells Swim Strokes sidestroke Laps/Duration 15m Chi Chi Duration (Minutes) 5 PT-OP-T Assessment and Plan Start: 10/04/18 08:08 Freq: Status: Active Protocol: Document 12/29/18 08:15 DL (Rec: 12/29/18 09:17 DLM [id number]) Physical Therapy Assessment Goals 5 Impairment postural dysfunction Short Term Goal (STG) Patient to be instructed in neutral postural alignment and body mechancis 11/03/18: achieved STG Duration goal met Website Project Manager Goal (LTG) Patient to demonstrate good understanding of posture and body mechanics principles for neck protection and optimal function in the home with ADL' s and with usual activities. 11/03/18: good progress 12/06/18: mostly met, will need instruction in more physically challenging tasks LTG Duration 01/13/19 4 Impairment ROM and strength impairments in neck and shoulders Short Term Goal (STG) Instruct patient in aquatic exercise program and HEP 11/03/18: completed instruction in aquatic exercise program and patient compliant. Continue to progress HEP. STG Duration goal met Website Project Manager Goal (LTG) Patient will be independent with HEP and community-based exercise program 12/06/18: continue to progress patients ex program with good tolerance LTG Duration 01/13/19 3 Impairment activity tolerance Short Term Goal (STG) Patient able to tolerate 45 min aquatic exercise program without an increase in pain for purposes of long-term pain management and fitness 11/03/18: goal met STG Duration goal met Website Project Manager Goal (LTG) Patient will be able to tolerate 45 min land-based exercise session with emphasis on postural correction, ROM, and strengthening without an increase in pain for purposes of long-term fitness and pain managment LTG Duration 01/13/19 2 Impairment Neck disability index score 56 % Short Term Goal (STG) Decrease disability index score to no greater than 35% 11/03/18: goal progress 12/06/18: 36%. STG Duration 6 wks Website Project Manager Goal (LTG) Decrease disability index score to no greater than 20% 12/06/18: good goal progress LTG Duration 01/13/19 1 Impairment neck pain Website Project Manager Goal (LTG) Pain no greater than 2/10 with usual activities 11/03/18: minimal progress LTG Duration 01/13/19 Progress Towards Goals Progress Towards Goals Progressing Toward Goals Assessment Summary Assessment He continues to tolerate his exercises well. He continues to need cuing for posture and technique with exercises. He reports over-all improvement in his activity tolerance at home. Pt wants to continue to advance his exercise program. Physical Therapy Plan Frequency and Duration Frequency of Treatment 2x/Week Duration of Treatment 6 wks Plan of Care Start Date 12/06/18 Plan of Care End Date 01/13/19 Therapeutic Interventions Therapeutic Interventions Aquatic Therapy Home Exercise Program Manual Therapy Neuromuscular Re-education Patient/Caregiver Education Self-Care/Home Management Soft Tissue Mobilization Therapeutic Activities Therapeutic Exercises Next Visit Focus/Plan Next Note Type Treatment Note Next Visit Plan progress exercises as az, cuing for good posture
--- NOTE | 2019-01-03 15:30 | PT.OTN ---
Current Diagnoses Arthrodesis status (01/03/19) Physical Therapy Treatment Note PT-OP-A Visit Information Start: 10/04/18 08:08 Freq: Status: Active Protocol: Document 01/03/19 15:19 SA (Rec: 01/03/19 15:30 SA [email or web address]) Out-Patient Physical Therapy Visit Information Visit Information Visit Type Treatment Note Visit Note do progress note on 01/09 appt Visit Start Time 12:15 Visit Stop Time 13:01 Total Visit Minutes 46 Visit Number 21 Number of YIELD ANALYST Visits 1 PT-OP-B Current Condition Start: 10/04/18 08:08 Freq: Status: Active Protocol: Document 10/04/18 11:20 SAK (Rec: 10/04/18 11:54 SAK [id number]) Current Condition History of Current Condition Onset Date 06/28/18 Current Complaints neck pain, weakness, activity intolerance History of Current Condition L and I claim injury date 10/23. Prior cervical spine fusion. On 06/28/18 removal of hardware C6-7 and fusion of C5-6. X-ray 09/30/18 showed good healing. Order for physical therapy 08/09/18, not seen until today due to insurance approval miscommunication. Prescription is for ROM to torso, pecs, shoulders, cervical spine as able, then strengthen. Reports unable to tolerate wearing cervical brace. Dysphagia issues since surgery , seeing ENT. Improved sensation in left hand since the surgery, previously numb. Patient reports since surgery with any exacerbation of pain he requires less time to decrease the symptoms. States has been doing some exercises recently at the pool : LE's only. Precautions; patient reports physician advised he use snorkel for any swimming, no other restrictions. 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 Treatment Goals Patient/Caregiver Goals Realistic exercise plan to continue after PT, know limitations. Prior Functional Status Baseline Function- ADL's Independent Baseline Function- Mobility Independent Baseline Function- Gait indep Personal Factors Other Personal Factors That May Effect DM, ESPINOSA, MOAPA, jaw pain, memory Therapy/Recovery loss, TBI PT-OP-C Subjective Start: 10/04/18 08:08 Freq: Status: Active Protocol: Document 01/03/19 15:19 SA (Rec: 01/03/19 15:30 SA [email or web address]) OP-PT Subjective Patient Comments Patient Comments Pt reports progress with self management of symptoms, drove to [place] yesterday and had had some cervical pain/ tightness but says he recovered by this morning and is back to normal, he's happy with improving recovery times. PT-OP-G Mobility & Gait Start: 10/04/18 08:08 Freq: Status: Active Protocol: Document 10/04/18 11:20 [facility] (Rec: 10/04/18 15:11 [facility] [id number]) OP Gait Assessment Gait Gait Assistance Required: Independent Factors Limiting Gait Function Factors Limiting Gait Function Pain Comments Gait Comments Able to ambulate household and short community distances, requires frequent rest due to back pain. PT-OP-J Posture/Palpation/Skin Start: 10/04/18 08:08 Freq: Status: Active Protocol: Document 10/04/18 11:20 [facility] (Rec: 10/04/18 15:11 [facility] [id number]) Posture Evaluation Position Sitting Head/C-Spine Posture Forward Head T-Spine Posture Increased Kyphosis Shoulder Posture (R) Rounded (L) Forward Scapula Posture (L) Protracted (R) Protracted Arm Posture (L) Internally Rotated (R) Internally Rotated Comments Posture Comments mod Dowager's hump Palpation Assessment Location One Palpation Location upper traps, levator scap, subocciptal, rhomboids Palpation Findings Soft Tissue Tightness Muscle Guarding Tenderness Skin Assessment Incisional Assessment Incision Appearance/Comments well healed anterior neck with good scar mobility; patient reports he massages with oil every day. PT-OP-K Range of Motion Start: 10/04/18 08:08 Freq: Status: Active Protocol: Document 11/03/18 11:15 [facility] (Rec: 11/07/18 08:07 [facility] [id number]) Cervical Spine Range of Motion Cervical Spine Active Testing Position Sitting Flexion 33 Extension 17 Rotation Left 55 Rotation Right 45 Lateral Flexion Left 19 Lateral Flexion Right 25 Comments patient reported pain with all cervical motions, worst with extension and left sidebending . PT-OP-M Strength Start: 10/04/18 08:08 Freq: Status: Active Protocol: Document 11/03/18 11:15 [facility] (Rec: 11/07/18 08:10 [facility] [id number]) Cervical Spine Strength Cervical Spine Manual Muscle Testing Reason Not Measured Orthopedic Precautions Pain Shoulder Strength Shoulder Manual Muscle Testing rupert Flexion 4 Good Extension 4 Good Abduction (C5) 4- Good- External Rotation 4- Good- Internal Rotation 4 Good Elbow/Forearm Strength Elbow and Forearm Manual Muscle Testing rupert Flexion (C6) 4+ Good+ Extension (C7) 4+ Good+ Comments mild pain left PT-OP-Q Treatments Start: 10/04/18 08:08 Freq: Status: Active Protocol: Document 01/03/19 15:19 SA (Rec: 01/03/19 15:30 SA [email or web address]) Cardio Equipment Recumbent Elliptical (BiodMygeni) Duration (Minutes) 10 Resistance 9 Other UE's and LE's Therapeutic Exercises Supine Exercises Triceps Supine Exercise Name over-head tricep extension Side bilateral Resistance 4# Reps/Minutes x 15 reps cervical rot Resistance active Reps/Minutes x 5 reps shoulder flex Side bilateral Resistance 4# Reps/Minutes x 15 reps serratus punch Side bilateral Resistance 4# Reps/Minutes x 15 reps should hor ab Side bilateral Resistance 4# Reps/Minutes x 15 reps Comments education to stop at table level, pt using 5# at home Prone Exercises thread the needle Prone Exercise Name quadruped position Side bilateral Reps/Minutes x 15 reps Comments trunk rotation iso prone extension Prone Exercise Name with chin tuck Equipment Used prone on therapy ball Reps/Minutes 20 secs x 3 Comments verbal and manual scapular cues I, T Prone Exercise Name with chin tuck, added Y Side bilateral Resistance 2# Equipment Used prone on therapy ball Reps/Minutes 15 reps each Comments added Y, verbal cues for technique Manual Therapy Treatment Taping postural taping Body Location upper thoracic Type of Tape Kinesio Tape Comments 2 I strips between scapula, I strip each side T10 to anterior shoulder (both for postural correction) PT-OP-R Modalities Start: 10/04/18 08:08 Freq: Status: Active Protocol: Document 12/06/18 15:49 SA (Rec: 12/06/18 16:03 SA [email or web address]) Electric Stimulation Electric Stimulation c/s, [place] Duration (Minutes) 15 Intensity 11 Target/Sweep Sweep Patient Position Hooklying Combined With Heat/Cold Cold Pack PT-OP-S Aquatic Treatment Start: 10/04/18 08:08 Freq: Status: Active Protocol: Document 10/14/18 10:15 LJ (Rec: 10/14/18 13:56 LJ [email or web address]) Aquatics Treatment Pool Entry/Exit Assistance Independent Water Walking straight leg march with straight UE's Water Level Neck Level Walking Equipment Resistance Fins Level of Assistance Verbal Cues Comments UE paddles sideways with shld ab/ad Water Level Neck Level Walking Equipment Resistance Fins Level of Assistance Verbal Cues Comments UE paddles Backward walking with reverse breastroke UE's Water Level Neck Level Walking Equipment Resistance Fins Level of Assistance Verbal Cues Comments UE paddles forward with breastroke UE's Water Level Neck Level Walking Equipment Resistance Fins Level of Assistance Verbal Cues Comments UE paddles Upper Extremity Exercises shld IR/ER Water Level Neck Level Reps/Duration 10x 2 Comments blue fins, green aqualogix bells shld circles Reps/Duration 10x2 Comments CW, CCW; fins and bells as above shld flex/ext Body Position Standing Water Level Chest Level Reps/Duration 10x Comments equipment as above hor ab/ad Water Level Neck Level Reps/Duration 10x2 Comments equipment as above Upper Extremity Stretches forward walking w/UE paddles Water Level Neck Level Equipment UE paddles Reps/Duration 30 M varying depths corner stretch Body Position Standing Water Level Chest Level Reps/Duration 2x Spinal Exercises cervical SB Body Position Standing Water Level Neck Level Reps/Duration 5x Comments painfree ROM cervical rotation Body Position Standing Equipment Neck Float Reps/Duration 5x Comments painfree ROM [place] Activities Other Activities bike, ski, abd/add, crossovers , v sit bike, pendulum, lateral pulldowns 10 sec increments Equipment flotation belt, med barbells Swim Strokes sidestroke Laps/Duration 15m Chi Chi Duration (Minutes) 5 PT-OP-T Assessment and Plan Start: 10/04/18 08:08 Freq: Status: Active Protocol: Document 01/03/19 15:19 SA (Rec: 01/03/19 15:30 SA [email or web address]) Physical Therapy Assessment Assessment Summary Assessment Pt consistent with HEP and going to gym regularly. Reports decreased low back and cervical sx with improving ability to manage flare ups. Tolerating ther ex progressions well. Physical Therapy Plan Next Visit Focus/Plan Next Note Type Treatment Note Next Visit Plan progress exercises as az, cuing for good posture
--- NOTE | 2019-01-06 08:15 | PT.OPPOC ---
Current Diagnoses Arthrodesis status (01/06/19) Provider Visit Care Team Role Provider Type MERRY Alvarenga Attending Provider Non-Staff Primary Care Provider Specialty: Family Practice Address: [address] [place] [address], [address], [place], [address] Email: Plan Of Care PT-OP-T Assessment and Plan Start: 10/04/18 08:08 Freq: Status: Active Protocol: Document 01/06/19 08:15 DLM (Rec: 01/06/19 10:32 DLM [id number]) Physical Therapy Assessment Goals 5 Impairment postural dysfunction Short Term Goal (STG) Patient to be instructed in neutral postural alignment and body mechancis 11/03/18: achieved STG Duration goal met [facility]ci Goal (LTG) Patient to demonstrate good understanding of posture and body mechanics principles for neck protection and optimal function in the home with ADL' s and with usual activities. 11/03/18: good progress 12/06/18: mostly met, will need instruction in more physically challenging tasks 01/06/19 Intermittent cuing in challening positions LTG Duration 03/01/19 4 Impairment ROM and strength impairments in neck and shoulders Short Term Goal (STG) Instruct patient in aquatic exercise program and HEP 11/03/18: completed instruction in aquatic exercise program and patient compliant. Continue to progress HEP. STG Duration goal met [facility]ci Goal (LTG) Patient will be independent with HEP and community-based exercise program 12/06/18: continue to progress patients ex program with good tolerance 01/06/19 continuing to progress his HEP LTG Duration 03/01/19 3 Impairment activity tolerance Short Term Goal (STG) Patient able to tolerate 45 min aquatic exercise program without an increase in pain for purposes of long-term pain management and fitness 11/03/18: goal met STG Duration goal met Clean Room Technician Goal (LTG) Patient will be able to tolerate 45 min land-based exercise session with emphasis on postural correction, ROM, and strengthening without an increase in pain for purposes of long-term fitness and pain managment 01/06/19 Mild increased pain with exercises but he can manage the pain at home, improved recovery time reported LTG Duration 03/01/19 2 Impairment Neck disability index score 56 % Short Term Goal (STG) Decrease disability index score to no greater than 35% 11/03/18: goal progress 12/06/18: 36%. 01/06/19: 52% STG Duration 6 wks [facility]ci Goal (LTG) Decrease disability index score to no greater than 20% 12/06/18: good goal progress LTG Duration 03/01/19 1 Impairment neck pain Clean Room Technician Goal (LTG) Pain no greater than 2/10 with usual activities 01/06/19: minimal progress, managing pain better at home LTG Duration 03/01/19 Progress Towards Goals Progress Towards Goals Progressing Toward Goals Progress Comments Goals not met but continues to progress towards them. He has not been able to decrease his pain number but has been able to stop taking his pain meds on a regular basis and reports improved ability to manage his pain at home. Assessment Summary Assessment He tolerated his exercise program well but still needs verbal cues for neck positioning. He continues to need education to decrease cervical stress with gym exercises. Pt has mild muscle soreness today from his gym exercises. He is independent with his pool HEP. Physical Therapy Plan Frequency and Duration Frequency of Treatment 2x/Week Duration of Treatment 6 weeks more Plan of Care Start Date 01/13/19 Plan of Care End Date 03/01/19 Therapeutic Interventions Therapeutic Interventions Aquatic Therapy Home Exercise Program Manual Therapy Neuromuscular Re-education Patient/Caregiver Education Self-Care/Home Management Soft Tissue Mobilization Taping Therapeutic Activities Therapeutic Exercises Next Visit Focus/Plan Next Note Type Treatment Note Next Visit Plan Will focus on exercises at the clinic. Will only return to the pool if his HEP needs to be progressed before discharge. Plan of Care Dates Plan of Care Start Date 01/13/19 Plan of Care End Date 03/01/19 Please Sign and Return: I have reviewed this Plan of Care and certify that the skilled therapy services above are required to meet the patient?s needs. Physician Signature Date Printed Name and Credentials
--- NOTE | 2019-01-06 08:15 | PT.OPPN ---
Current Diagnoses Arthrodesis status (01/06/19) Physical Therapy Progress Note PT-OP-A Visit Information Start: 10/04/18 08:08 Freq: Status: Active Protocol: Document 01/06/19 08:15 DLM (Rec: 01/06/19 10:32 DLM [id number]) Out-Patient Physical Therapy Visit Information Visit Information Visit Type Progress Note Visit Note and treatment today Visit Start Time 08:15 Visit Stop Time 09:05 Total Visit Minutes 50 Visit Number 22 Number of ENVIRONMENTAL REMEDIATION CONSULTANT Visits 0 Evaluation Information Evaluation Date 10/04/18 PT-OP-B Current Condition Start: 10/04/18 08:08 Freq: Status: Active Protocol: Document 01/06/19 08:15 DLM (Rec: 01/06/19 10:42 DLM [id number]) Current Condition History of Current Condition Onset Date 06/28/18 Current Complaints neck pain, weakness, activity intolerance History of Current Condition L and I claim injury date 10/23. Prior cervical spine fusion. On 06/28/18 removal of hardware C6-7 and fusion of C5-6. X-ray 09/30/18 showed good healing. Order for physical therapy 08/09/18, not seen until today due to insurance approval miscommunication. Prescription is for ROM to torso, pecs, shoulders, cervical spine as able, then strengthen. Reports unable to tolerate wearing cervical brace. Dysphagia issues since surgery , seeing ENT. Improved sensation in left hand since the surgery, previously numb. Patient reports since surgery with any exacerbation of pain he requires less time to decrease the symptoms. States has been doing some exercises recently at the pool : LE's only. Precautions; patient reports physician advised he use snorkel for any swimming, no other restrictions. 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 Future Testing and Treatments Planned chiropractor, massage, TMJ specialist Treatment Goals Patient/Caregiver Goals Realistic exercise plan to continue after PT, know limitations. Prior Functional Status Baseline Function- ADL's Independent Baseline Function- Mobility Independent Baseline Function- Gait indep Personal Factors Other Personal Factors That May Effect DM, [place], [place], jaw pain, memory Therapy/Recovery loss, TBI PT-OP-C Subjective Start: 10/04/18 08:08 Freq: Status: Active Protocol: Document 01/06/19 08:15 DLM (Rec: 01/06/19 10:32 [facility] [id number]) OP-PT Subjective Patient Comments Patient Comments He feels he continues to slowly improve. He wants to be able to continue to progress his exercises. 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 He tried squats at the gym with bar behind his neck because he can not use the leg press machine. Patient Reported Progress Improving Patient Questionnaires Neck Disability Index NDI Score 52% Neck Disability Index Impairment 40 to 59% Impaired (Score 20- 29) OP-PT Pain Assessment Pain Assessment Grid Paper Pain Assessment Grid Completed Yes: see in paper chart Location Left Arm Pain Location Details 3-5/10 pn Intensity 5 Scale Used Numeric (1 - 10) Right Arm Pain Location Details 1-4/10 pn Intensity 4 Scale Used Numeric (1 - 10) Lower Posterior Back Intensity 4 Scale Used Numeric (1 - 10) Description Aching Posterior Neck Pain Location Details and anterior scar tissue is tight Intensity 4 Scale Used Numeric (1 - 10) Description Aching Tightness Description- Other worst pn is 6/10 Home Pain Medication Use Pain Medications Used No: He has stopped taking all pain meds PT-OP-G Mobility & Gait Start: 10/04/18 08:08 Freq: Status: Active Protocol: Document 10/04/18 11:20 [facility] (Rec: 10/04/18 15:11 [facility] [id number]) OP Gait Assessment Gait Gait Assistance Required: Independent Factors Limiting Gait Function Factors Limiting Gait Function Pain Comments Gait Comments Able to ambulate household and short community distances, requires frequent rest due to back pain. PT-OP-J Posture/Palpation/Skin Start: 10/04/18 08:08 Freq: Status: Active Protocol: Document 10/04/18 11:20 [facility] (Rec: 10/04/18 15:11 [facility] [id number]) Posture Evaluation Position Sitting Head/C-Spine Posture Forward Head T-Spine Posture Increased Kyphosis Shoulder Posture (R) Rounded (L) Forward Scapula Posture (L) Protracted (R) Protracted Arm Posture (L) Internally Rotated (R) Internally Rotated Comments Posture Comments mod Dowager's hump Palpation Assessment Location One Palpation Location upper traps, levator scap, subocciptal, rhomboids Palpation Findings Soft Tissue Tightness Muscle Guarding Tenderness Skin Assessment Incisional Assessment Incision Appearance/Comments well healed anterior neck with good scar mobility; patient reports he massages with oil every day. PT-OP-K Range of Motion Start: 10/04/18 08:08 Freq: Status: Active Protocol: Document 11/03/18 11:15 [facility] (Rec: 11/07/18 08:07 [facility] [id number]) Cervical Spine Range of Motion Cervical Spine Active Testing Position Sitting Flexion 33 Extension 17 Rotation Left 55 Rotation Right 45 Lateral Flexion Left 19 Lateral Flexion Right 25 Comments patient reported pain with all cervical motions, worst with extension and left sidebending . PT-OP-M Strength Start: 10/04/18 08:08 Freq: Status: Active Protocol: Document 01/06/19 08:15 DLM (Rec: 01/06/19 10:45 DLM [id number]) Elbow/Forearm Strength Elbow and Forearm Manual Muscle Testing rupert Flexion (C6) 5 Normal Extension (C7) 5 Normal PT-OP-T Assessment and Plan Start: 10/04/18 08:08 Freq: Status: Active Protocol: Document 01/06/19 08:15 DLM (Rec: 01/06/19 10:32 DLM [id number]) Physical Therapy Assessment Goals 5 Impairment postural dysfunction Short Term Goal (STG) Patient to be instructed in neutral postural alignment and body mechancis 11/03/18: achieved STG Duration goal met Job Recruiter Goal (LTG) Patient to demonstrate good understanding of posture and body mechanics principles for neck protection and optimal function in the home with ADL' s and with usual activities. 11/03/18: good progress 12/06/18: mostly met, will need instruction in more physically challenging tasks 01/06/19 Intermittent cuing in challening positions LTG Duration 03/01/19 4 Impairment ROM and strength impairments in neck and shoulders Short Term Goal (STG) Instruct patient in aquatic exercise program and HEP 11/03/18: completed instruction in aquatic exercise program and patient compliant. Continue to progress HEP. STG Duration goal met Half-Way Goal (LTG) Patient will be independent with HEP and community-based exercise program 12/06/18: continue to progress patients ex program with good tolerance 01/06/19 continuing to progress his HEP LTG Duration 03/01/19 3 Impairment activity tolerance Short Term Goal (STG) Patient able to tolerate 45 min aquatic exercise program without an increase in pain for purposes of long-term pain management and fitness 11/03/18: goal met STG Duration goal met Half-Way Goal (LTG) Patient will be able to tolerate 45 min land-based exercise session with emphasis on postural correction, ROM, and strengthening without an increase in pain for purposes of long-term fitness and pain managment 01/06/19 Mild increased pain with exercises but he can manage the pain at home, improved recovery time reported LTG Duration 03/01/19 2 Impairment Neck disability index score 56 % Short Term Goal (STG) Decrease disability index score to no greater than 35% 11/03/18: goal progress 12/06/18: 36%. 01/06/19: 52% STG Duration 6 wks Job Recruiter Goal (LTG) Decrease disability index score to no greater than 20% 12/06/18: good goal progress LTG Duration 03/01/19 1 Impairment neck pain Job Recruiter Goal (LTG) Pain no greater than 2/10 with usual activities 01/06/19: minimal progress, managing pain better at home LTG Duration 03/01/19 Progress Towards Goals Progress Towards Goals Progressing Toward Goals Progress Comments Goals not met but continues to progress towards them. He has not been able to decrease his pain number but has been able to stop taking his pain meds on a regular basis and reports improved ability to manage his pain at home. Assessment Summary Assessment He tolerated his exercise program well but still needs verbal cues for neck positioning. He continues to need education to decrease cervical stress with gym exercises. Pt has mild muscle soreness today from his gym exercises. Physical Therapy Plan Frequency and Duration Frequency of Treatment 2x/Week Duration of Treatment 6 weeks more Plan of Care Start Date 01/13/19 Plan of Care End Date 03/01/19 Therapeutic Interventions Therapeutic Interventions Aquatic Therapy Home Exercise Program Manual Therapy Neuromuscular Re-education Patient/Caregiver Education Self-Care/Home Management Soft Tissue Mobilization Taping Therapeutic Activities Therapeutic Exercises Next Visit Focus/Plan Next Note Type Treatment Note Next Visit Plan progress exercises as az, cuing for good posture and cervical protection, review exercise he does at the gym.
--- NOTE | 2019-01-09 10:32 | PT.OTN ---
Current Diagnoses Arthrodesis status (01/09/19) Physical Therapy Treatment Note PT-OP-A Visit Information Start: 10/04/18 08:08 Freq: Status: Active Protocol: Document 01/09/19 09:45 DCW (Rec: 01/09/19 10:32 DCW [id number]) Out-Patient Physical Therapy Visit Information Visit Information Visit Type Treatment Note Visit Start Time 09:45 Visit Stop Time 10:30 Total Visit Minutes 45 Visit Number 23 Number of FORESTRY EXTENSION SPECIALIST Visits 0 Evaluation Information Evaluation Date 10/04/18 PT-OP-B Current Condition Start: 10/04/18 08:08 Freq: Status: Active Protocol: Document 01/06/19 08:15 DLM (Rec: 01/06/19 10:42 DLM [id number]) Current Condition History of Current Condition Onset Date 06/28/18 Current Complaints neck pain, weakness, activity intolerance History of Current Condition L and I claim injury date 10/23. Prior cervical spine fusion. On 06/28/18 removal of hardware C6-7 and fusion of C5-6. X-ray 09/30/18 showed good healing. Order for physical therapy 08/09/18, not seen until today due to insurance approval miscommunication. Prescription is for ROM to torso, pecs, shoulders, cervical spine as able, then strengthen. Reports unable to tolerate wearing cervical brace. Dysphagia issues since surgery , seeing ENT. Improved sensation in left hand since the surgery, previously numb. Patient reports since surgery with any exacerbation of pain he requires less time to decrease the symptoms. States has been doing some exercises recently at the pool : LE's only. Precautions; patient reports physician advised he use snorkel for any swimming, no other restrictions. 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 Future Testing and Treatments Planned chiropractor, massage, TMJ specialist Treatment Goals Patient/Caregiver Goals Realistic exercise plan to continue after PT, know limitations. Prior Functional Status Baseline Function- ADL's Independent Baseline Function- Mobility Independent Baseline Function- Gait indep Personal Factors Other Personal Factors That May Effect DM, ESPINOSA, G[place], jaw pain, memory Therapy/Recovery loss, TBI PT-OP-C Subjective Start: 10/04/18 08:08 Freq: Status: Active Protocol: Document 01/09/19 09:45 DCW (Rec: 01/09/19 10:32 DCW [id number]) OP-PT Subjective Patient Comments Patient Comments Pt reports a weird pain on his right arm, near the point of the deltoid insertion, notes it feels like a yellow jacket sting. Pt is able to trigger the pain with point pressure, but also feels is when reaching behind his back with his right arm. PT-OP-G Mobility & Gait Start: 10/04/18 08:08 Freq: Status: Active Protocol: Document 10/04/18 11:20 SAK (Rec: 10/04/18 15:11 [facility] [id number]) OP Gait Assessment Gait Gait Assistance Required: Independent Factors Limiting Gait Function Factors Limiting Gait Function Pain Comments Gait Comments Able to ambulate household and short community distances, requires frequent rest due to back pain. PT-OP-J Posture/Palpation/Skin Start: 10/04/18 08:08 Freq: Status: Active Protocol: Document 10/04/18 11:20 SAK (Rec: 10/04/18 15:11 [facility] [id number]) Posture Evaluation Position Sitting Head/C-Spine Posture Forward Head T-Spine Posture Increased Kyphosis Shoulder Posture (R) Rounded (L) Forward Scapula Posture (L) Protracted (R) Protracted Arm Posture (L) Internally Rotated (R) Internally Rotated Comments Posture Comments mod Dowager's hump Palpation Assessment Location One Palpation Location upper traps, levator scap, subocciptal, rhomboids Palpation Findings Soft Tissue Tightness Muscle Guarding Tenderness Skin Assessment Incisional Assessment Incision Appearance/Comments well healed anterior neck with good scar mobility; patient reports he massages with oil every day. PT-OP-K Range of Motion Start: 10/04/18 08:08 Freq: Status: Active Protocol: Document 11/03/18 11:15 SAK (Rec: 11/07/18 08:07 SAK [id number]) Cervical Spine Range of Motion Cervical Spine Active Testing Position Sitting Flexion 33 Extension 17 Rotation Left 55 Rotation Right 45 Lateral Flexion Left 19 Lateral Flexion Right 25 Comments patient reported pain with all cervical motions, worst with extension and left sidebending . PT-OP-M Strength Start: 10/04/18 08:08 Freq: Status: Active Protocol: Document 01/06/19 08:15 DLM (Rec: 01/06/19 10:45 DLM [id number]) Elbow/Forearm Strength Elbow and Forearm Manual Muscle Testing rupert Flexion (C6) 5 Normal Extension (C7) 5 Normal PT-OP-Q Treatments Start: 10/04/18 08:08 Freq: Status: Active Protocol: Document 01/09/19 09:45 DCW (Rec: 01/09/19 10:32 DCW [id number]) Cardio Equipment Recumbent Elliptical ([email or web address]) Duration (Minutes) 8 Resistance 7 Seat Position 12 Other UE's and LE's Therapeutic Exercises Supine Exercises Triceps Supine Exercise Name over-head tricep extension Side bilateral Resistance 4# Reps/Minutes 2x 15 reps shoulder flex Side bilateral Resistance 5# Reps/Minutes 2x 15 reps serratus punch Side bilateral Resistance 5# Reps/Minutes 2x 15 reps should hor ab Side bilateral Resistance 5# Reps/Minutes 2x 10 reps Comments education to stop at table level, pt using 5# at home Prone Exercises thread the needle Prone Exercise Name quadruped position Side bilateral Reps/Minutes x 15 reps Comments trunk rotation I, T Prone Exercise Name T's, I's, Y's /c chin tuck Side bilateral Resistance 2# Equipment Used Prone on plinth Reps/Minutes x15 Sidelying Exercises Reach and Roll Sidelying Exercise Name Reach and Roll Side bilateral Reps/Minutes x15 each side Manual Therapy Treatment Soft Tissue Mobilization STM/MFR Body Location upper trap, posterior cervical reg, suboccipital release Mobilization Type Myofascial Release Trigger Point Release Intensity/Depth Moderate Body Position Hooklying Taping postural taping Body Location upper thoracic Type of Tape Kinesio Tape Comments 2 I strips between scapula, I strip each side T10 to anterior shoulder (both for postural correction) PT-OP-R Modalities Start: 10/04/18 08:08 Freq: Status: Active Protocol: Document 12/06/18 15:49 SA (Rec: 12/06/18 16:03 SA [email or web address]) Electric Stimulation Electric Stimulation c/s, [place] Duration (Minutes) 15 Intensity 11 Target/Sweep Sweep Patient Position Hooklying Combined With Heat/Cold Cold Pack PT-OP-S Aquatic Treatment Start: 10/04/18 08:08 Freq: Status: Active Protocol: Document 10/14/18 10:15 LJ (Rec: 10/14/18 13:56 LJ [email or web address]) Aquatics Treatment Pool Entry/Exit Assistance Independent Water Walking straight leg march with straight UE's Water Level Neck Level Walking Equipment Resistance Fins Level of Assistance Verbal Cues Comments UE paddles sideways with shld ab/ad Water Level Neck Level Walking Equipment Resistance Fins Level of Assistance Verbal Cues Comments UE paddles Backward walking with reverse breastroke UE's Water Level Neck Level Walking Equipment Resistance Fins Level of Assistance Verbal Cues Comments UE paddles forward with breastroke UE's Water Level Neck Level Walking Equipment Resistance Fins Level of Assistance Verbal Cues Comments UE paddles Upper Extremity Exercises shld IR/ER Water Level Neck Level Reps/Duration 10x 2 Comments blue fins, green aqualogix bells shld circles Reps/Duration 10x2 Comments CW, CCW; fins and bells as above shld flex/ext Body Position Standing Water Level Chest Level Reps/Duration 10x Comments equipment as above hor ab/ad Water Level Neck Level Reps/Duration 10x2 Comments equipment as above Upper Extremity Stretches forward walking w/UE paddles Water Level Neck Level Equipment UE paddles Reps/Duration 30 M varying depths corner stretch Body Position Standing Water Level Chest Level Reps/Duration 2x Spinal Exercises cervical SB Body Position Standing Water Level Neck Level Reps/Duration 5x Comments painfree ROM cervical rotation Body Position Standing Equipment Neck Float Reps/Duration 5x Comments painfree ROM [place] Activities Other Activities bike, ski, abd/add, crossovers , v sit bike, pendulum, lateral pulldowns 10 sec increments Equipment flotation belt, med barbells Swim Strokes sidestroke Laps/Duration 15m Chi Chi Duration (Minutes) 5 PT-OP-T Assessment and Plan Start: 10/04/18 08:08 Freq: Status: Active Protocol: Document 01/09/19 09:45 DCW (Rec: 01/09/19 10:32 DCW [id number]) Physical Therapy Assessment Goals 5 Impairment postural dysfunction Short Term Goal (STG) Patient to be instructed in neutral postural alignment and body mechancis 11/03/18: achieved STG Duration goal met Industrial Chemistry Teacher Goal (LTG) Patient to demonstrate good understanding of posture and body mechanics principles for neck protection and optimal function in the home with ADL' s and with usual activities. 11/03/18: good progress 12/06/18: mostly met, will need instruction in more physically challenging tasks 01/06/19 Intermittent cuing in challening positions LTG Duration 03/01/19 4 Impairment ROM and strength impairments in neck and shoulders Short Term Goal (STG) Instruct patient in aquatic exercise program and HEP 11/03/18: completed instruction in aquatic exercise program and patient compliant. Continue to progress HEP. STG Duration goal met Long-Term Goal (LTG) Patient will be independent with HEP and community-based exercise program 12/06/18: continue to progress patients ex program with good tolerance 01/06/19 continuing to progress his HEP LTG Duration 03/01/19 3 Impairment activity tolerance Short Term Goal (STG) Patient able to tolerate 45 min aquatic exercise program without an increase in pain for purposes of long-term pain management and fitness 11/03/18: goal met STG Duration goal met Long-Term Goal (LTG) Patient will be able to tolerate 45 min land-based exercise session with emphasis on postural correction, ROM, and strengthening without an increase in pain for purposes of long-term fitness and pain managment 01/06/19 Mild increased pain with exercises but he can manage the pain at home, improved recovery time reported LTG Duration 03/01/19 2 Impairment Neck disability index score 56 % Short Term Goal (STG) Decrease disability index score to no greater than 35% 11/03/18: goal progress 12/06/18: 36%. 01/06/19: 52% STG Duration 6 wks Long-Term Goal (LTG) Decrease disability index score to no greater than 20% 12/06/18: good goal progress LTG Duration 03/01/19 1 Impairment neck pain Industrial Chemistry Teacher Goal (LTG) Pain no greater than 2/10 with usual activities 01/06/19: minimal progress, managing pain better at home LTG Duration 03/01/19 Assessment Summary Assessment Pt tolerated treatment well, noticeably fatigued following prone exdercises. Physical Therapy Plan Frequency and Duration Frequency of Treatment 2x/Week Duration of Treatment 6 weeks more Plan of Care Start Date 01/13/19 Plan of Care End Date 03/01/19 Therapeutic Interventions Therapeutic Interventions Aquatic Therapy Home Exercise Program Manual Therapy Neuromuscular Re-education Patient/Caregiver Education Self-Care/Home Management Soft Tissue Mobilization Taping Therapeutic Activities Therapeutic Exercises Next Visit Focus/Plan Next Note Type Treatment Note Next Visit Plan progress exercises as az, cuing for good posture and cervical protection, review exercise he does at the gym.
--- NOTE | 2019-01-20 11:21 | PT.OTN ---
Current Diagnoses Arthrodesis status (01/20/19) Physical Therapy Treatment Note PT-OP-A Visit Information Start: 10/04/18 08:08 Freq: Status: Active Protocol: Document 01/20/19 11:14 SA (Rec: 01/20/19 11:21 SA [email or web address]) Out-Patient Physical Therapy Visit Information Visit Information Visit Type Treatment Note Visit Start Time 08:15 Visit Stop Time 09:01 Total Visit Minutes 46 Visit Number 24 Number of TECHNICAL SERVICES MANAGER Visits 1 PT-OP-B Current Condition Start: 10/04/18 08:08 Freq: Status: Active Protocol: Document 01/06/19 08:15 DLM (Rec: 01/06/19 10:42 DLM [id number]) Current Condition History of Current Condition Onset Date 06/28/18 Current Complaints neck pain, weakness, activity intolerance History of Current Condition L and I claim injury date 10/23. Prior cervical spine fusion. On 06/28/18 removal of hardware C6-7 and fusion of C5-6. X-ray 09/30/18 showed good healing. Order for physical therapy 08/09/18, not seen until today due to insurance approval miscommunication. Prescription is for ROM to torso, pecs, shoulders, cervical spine as able, then strengthen. Reports unable to tolerate wearing cervical brace. Dysphagia issues since surgery , seeing ENT. Improved sensation in left hand since the surgery, previously numb. Patient reports since surgery with any exacerbation of pain he requires less time to decrease the symptoms. States has been doing some exercises recently at the pool : LE's only. Precautions; patient reports physician advised he use snorkel for any swimming, no other restrictions. 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 Future Testing and Treatments Planned chiropractor, massage, TMJ specialist Treatment Goals Patient/Caregiver Goals Realistic exercise plan to continue after PT, know limitations. Prior Functional Status Baseline Function- ADL's Independent Baseline Function- Mobility Independent Baseline Function- Gait indep Personal Factors Other Personal Factors That May Effect DM, ESPINOSA, [place], jaw pain, memory Therapy/Recovery loss, TBI PT-OP-C Subjective Start: 10/04/18 08:08 Freq: Status: Active Protocol: Document 01/20/19 11:14 SA (Rec: 01/20/19 11:21 SA [email or web address]) OP-PT Subjective Patient Comments Patient Comments Pt did well on vacion and did HEP on most days, continued weird pain at his R biceps that occurs with IR behind back. PT-OP-G Mobility & Gait Start: 10/04/18 08:08 Freq: Status: Active Protocol: Document 10/04/18 11:20 [facility] (Rec: 10/04/18 15:11 [facility] [id number]) OP Gait Assessment Gait Gait Assistance Required: Independent Factors Limiting Gait Function Factors Limiting Gait Function Pain Comments Gait Comments Able to ambulate household and short community distances, requires frequent rest due to back pain. PT-OP-J Posture/Palpation/Skin Start: 10/04/18 08:08 Freq: Status: Active Protocol: Document 10/04/18 11:20 [facility] (Rec: 10/04/18 15:11 [facility] [id number]) Posture Evaluation Position Sitting Head/C-Spine Posture Forward Head T-Spine Posture Increased Kyphosis Shoulder Posture (R) Rounded (L) Forward Scapula Posture (L) Protracted (R) Protracted Arm Posture (L) Internally Rotated (R) Internally Rotated Comments Posture Comments mod Dowager's hump Palpation Assessment Location One Palpation Location upper traps, levator scap, subocciptal, rhomboids Palpation Findings Soft Tissue Tightness Muscle Guarding Tenderness Skin Assessment Incisional Assessment Incision Appearance/Comments well healed anterior neck with good scar mobility; patient reports he massages with oil every day. PT-OP-K Range of Motion Start: 10/04/18 08:08 Freq: Status: Active Protocol: Document 11/03/18 11:15 [facility] (Rec: 11/07/18 08:07 [facility] [id number]) Cervical Spine Range of Motion Cervical Spine Active Testing Position Sitting Flexion 33 Extension 17 Rotation Left 55 Rotation Right 45 Lateral Flexion Left 19 Lateral Flexion Right 25 Comments patient reported pain with all cervical motions, worst with extension and left sidebending . PT-OP-M Strength Start: 10/04/18 08:08 Freq: Status: Active Protocol: Document 01/06/19 08:15 DLM (Rec: 01/06/19 10:45 DLM [id number]) Elbow/Forearm Strength Elbow and Forearm Manual Muscle Testing rupert Flexion (C6) 5 Normal Extension (C7) 5 Normal PT-OP-Q Treatments Start: 10/04/18 08:08 Freq: Status: Active Protocol: Document 01/20/19 11:14 SA (Rec: 01/20/19 11:21 SA [email or web address]) Cardio Equipment Recumbent Elliptical ([employer]) Duration (Minutes) 8 Resistance 8 Seat Position 12 Other UE's and LE's Therapeutic Exercises Supine Exercises Triceps Supine Exercise Name over-head tricep extension Side bilateral Resistance 4# Reps/Minutes 2x 15 reps shoulder flex Side bilateral Resistance 5# Reps/Minutes 2x 15 reps serratus punch Side bilateral Resistance 5# Reps/Minutes 2x 15 reps should hor ab Side bilateral Resistance 5# Reps/Minutes 2x 10 reps Comments education to stop at table level, pt using 5# at home Prone Exercises thread the needle Prone Exercise Name quadruped position Side bilateral Reps/Minutes x 15 reps Comments trunk rotation I, T Prone Exercise Name T's, I's, Y's /c chin tuck Side bilateral Resistance 2# Equipment Used Prone on plinth Reps/Minutes 2 x 10 each Manual Therapy Treatment Soft Tissue Mobilization STM/MFR Body Location upper trap, posterior cervical reg, suboccipital release Mobilization Type Myofascial Release Trigger Point Release Intensity/Depth Moderate Body Position Hooklying Taping postural taping Body Location upper thoracic Type of Tape Kinesio Tape Comments 2 I strips between scapula, I strip each side T10 to anterior shoulder (both for postural correction) PT-OP-R Modalities Start: 10/04/18 08:08 Freq: Status: Active Protocol: Document 12/06/18 15:49 SA (Rec: 12/06/18 16:03 SA [email or web address]) Electric Stimulation Electric Stimulation c/s, [place] Duration (Minutes) 15 Intensity 11 Target/Sweep Sweep Patient Position Hooklying Combined With Heat/Cold Cold Pack PT-OP-S Aquatic Treatment Start: 10/04/18 08:08 Freq: Status: Active Protocol: Document 10/14/18 10:15 LJ (Rec: 10/14/18 13:56 LJ [email or web address]) Aquatics Treatment Pool Entry/Exit Assistance Independent Water Walking straight leg march with straight UE's Water Level Neck Level Walking Equipment Resistance Fins Level of Assistance Verbal Cues Comments UE paddles sideways with shld ab/ad Water Level Neck Level Walking Equipment Resistance Fins Level of Assistance Verbal Cues Comments UE paddles Backward walking with reverse breastroke UE's Water Level Neck Level Walking Equipment Resistance Fins Level of Assistance Verbal Cues Comments UE paddles forward with breastroke UE's Water Level Neck Level Walking Equipment Resistance Fins Level of Assistance Verbal Cues Comments UE paddles Upper Extremity Exercises shld IR/ER Water Level Neck Level Reps/Duration 10x 2 Comments blue fins, green aqualogix bells shld circles Reps/Duration 10x2 Comments CW, CCW; fins and bells as above shld flex/ext Body Position Standing Water Level Chest Level Reps/Duration 10x Comments equipment as above hor ab/ad Water Level Neck Level Reps/Duration 10x2 Comments equipment as above Upper Extremity Stretches forward walking w/UE paddles Water Level Neck Level Equipment UE paddles Reps/Duration 30 M varying depths corner stretch Body Position Standing Water Level Chest Level Reps/Duration 2x Spinal Exercises cervical SB Body Position Standing Water Level Neck Level Reps/Duration 5x Comments painfree ROM cervical rotation Body Position Standing Equipment Neck Float Reps/Duration 5x Comments painfree ROM [place] Activities Other Activities bike, ski, abd/add, crossovers , v sit bike, pendulum, lateral pulldowns 10 sec increments Equipment flotation belt, med barbells Swim Strokes sidestroke Laps/Duration 15m Chi Chi Duration (Minutes) 5 PT-OP-T Assessment and Plan Start: 10/04/18 08:08 Freq: Status: Active Protocol: Document 01/20/19 11:14 SA (Rec: 01/20/19 11:21 SA [email or web address]) Physical Therapy Assessment Assessment Summary Assessment Pt tolerating ther ex well and postural taping continues to be helpful. Feels he did well on vacation and is getting better overall. Physical Therapy Plan Next Visit Focus/Plan Next Note Type Treatment Note Next Visit Plan progress exercises as az, cuing for good posture and cervical protection, review exercise he does at the gym.
--- NOTE | 2019-03-08 09:29 | PT.OTRE ---
Current Diagnoses Arthrodesis status (03/08/19) Provider Visit Care Team Role Provider Type MERRY Alvarenga Attending Provider Non-Staff Primary Care Provider Specialty: Family Practice Address: [address] [place] [address], [address], [place], [address] Email: Physical Therapy Re-Evaluation PT-OP-A Visit Information Start: 10/04/18 08:08 Freq: Status: Active Protocol: Document 03/08/19 09:29 SAK (Rec: 03/08/19 09:47 SAK [id number]) Out-Patient Physical Therapy Visit Information Visit Information Visit Type Treatment Note Visit Start Time 09:30 Visit Stop Time 10:25 Total Visit Minutes 55 Visit Number 25 Number of ELECTRICAL SYSTEMS DESIGN ENGINEER Visits 1 Evaluation Information Evaluation Date 10/04/18 PT-OP-B Current Condition Start: 10/04/18 08:08 Freq: Status: Active Protocol: Document 03/08/19 09:29 SAK (Rec: 03/08/19 09:47 SAK [id number]) Current Condition History of Current Condition Onset Date 06/28/18 Current Complaints neck pain, weakness, activity intolerance History of Current Condition Last seen for PT 01/20/19. Has been doing massage therapy, and has had chiropractic ordered. Going to TMJ specialist 03/29/19. Saw physician last week, recommended continue PT. Left sided numbness hand, lateral 3 fingers tingly more since last seen, pain persists not all the time, also burning sensation in ulnar nerve left. c/o occasional weakness right UE, beesting pain right UE with reaching behind his back. Has attorney at law working with him with his L and I claim. Reports low back pain has been better. Wants land- based PT, will continue with aquatic-based PT at this time. Future Testing and Treatments Planned chiropractor, massage, TMJ specialist Treatment Goals Patient/Caregiver Goals pushing the boundaries, trying to increase what I'm able to do; reduce pain while driving, improve ROM and strength. Prior Functional Status Baseline Function- ADL's Independent Baseline Function- Mobility Independent Baseline Function- Gait indep Current Functional Impairments (Reported) Functional Limitations- ADL's see neck and shoulder disability index score PT-OP-C Subjective Start: 10/04/18 08:08 Freq: Status: Active Protocol: Document 03/08/19 09:29 [facility] (Rec: 03/08/19 09:47 [facility] [id number]) OP-PT Subjective Patient Comments Patient Comments I want to get as much as I can out of this body, be able to do more. Patient Questionnaires Neck Disability Index NDI Score 44% Neck Disability Index Impairment 40 to 59% Impaired (Score 20- 29) OP-PT Pain Assessment Pain Assessment Grid Paper Pain Assessment Grid Completed Yes: see in paper chart Location Left Arm Pain Location Details 5-7 Right Arm Pain Location Details 5-8 Lower Posterior Back Pain Location Details 2-3 Upper Posterior Back Pain Location Details 5-7 Posterior Neck Pain Location Details 4-6 Home Pain Medication Use Pain Medications Used occasional Ibuprofen PT-OP-G Mobility & Gait Start: 10/04/18 08:08 Freq: Status: Active Protocol: Document 10/04/18 11:20 [facility] (Rec: 10/04/18 15:11 [facility] [id number]) OP Gait Assessment Gait Gait Assistance Required: Independent Factors Limiting Gait Function Factors Limiting Gait Function Pain Comments Gait Comments Able to ambulate household and short community distances, requires frequent rest due to back pain. PT-OP-J Posture/Palpation/Skin Start: 10/04/18 08:08 Freq: Status: Active Protocol: Document 03/08/19 09:29 [facility] (Rec: 03/12/19 11:52 [facility] [id number]) Posture Evaluation Position Sitting Head/C-Spine Posture Forward Head T-Spine Posture Increased Kyphosis Shoulder Posture (R) Rounded (L) Forward Scapula Posture (L) Protracted (R) Protracted Arm Posture (L) Internally Rotated (R) Internally Rotated Skin Assessment Other Assessments Skin Assessment Comments skin intact PT-OP-K Range of Motion Start: 10/04/18 08:08 Freq: Status: Active Protocol: Document 03/08/19 09:29 [facility] (Rec: 03/12/19 11:52 [facility] [id number]) Cervical Spine Range of Motion Cervical Spine Active Testing Position Sitting Flexion 33 Extension 25 Rotation Left 36 Rotation Right 38 Lateral Flexion Left 20 Lateral Flexion Right 32 Comments patient reported pain with all cervical motions, worst with extension and left sidebending . Shoulder Goniometric Range of Motion Shoulder Measured in Degrees Left Testing Position Sitting Internal Rotation Behind Back (text) lateral hip Right Shoulder ROM WFL Yes Testing Position Sitting Shoulder ROM Limitations Comments WNL but with c/o shoulder and neck pain with flex and abd PT-OP-M Strength Start: 10/04/18 08:08 Freq: Status: Active Protocol: Document 03/08/19 09:29 [facility] (Rec: 03/12/19 11:52 [facility] [id number]) Cervical Spine Strength Cervical Spine Manual Muscle Testing Testing Position Sitting Flexion (C1-2) 4 Good Extension 4 Good Rotation Left 4 Good Rotation Right 4 Good Lateral Flexion Left (C3) 4 Good Lateral Flexion Right (C3) 4 Good Shoulder Strength Shoulder Manual Muscle Testing rupert Flexion 4 Good Extension 4 Good Abduction (C5) 4- Good- External Rotation 4 Good Internal Rotation 4+ Good+ Elbow/Forearm Strength Elbow and Forearm Manual Muscle Testing rupert Comments pain medial left elbow with resistance. elbow flex 4/5 right 4+/5 left, extension 4/5 right 4+/5 left Wrist Strength Wrist Manual Muscle Testing Left Flexion (C7) 4+ Good+ Extension (C6) 4+ Good+ Right Flexion (C7) 4 Good Extension (C6) 4 Good PT-OP-Q Treatments Start: 10/04/18 08:08 Freq: Status: Active Protocol: Document 03/08/19 09:29 [facility] (Rec: 03/12/19 11:52 [facility] [id number]) Manual Therapy Treatment Soft Tissue Mobilization STM/MFR Body Location upper trap, posterior cervical reg, suboccipital release Mobilization Type Myofascial Release Trigger Point Release Intensity/Depth Moderate Body Position Hooklying Taping postural taping Body Location upper thoracic Type of Tape Kinesio Tape Comments 2 I strips between scapula, I strip each side T10 to anterior shoulder (both for postural correction) PT-OP-R Modalities Start: 10/04/18 08:08 Freq: Status: Active Protocol: Document 03/08/19 09:29 [facility] (Rec: 03/12/19 11:52 [facility] [id number]) Hot Pack/Cold Pack Treatment Cold Pack Location c/s Patient Position Hooklying Treatment Duration (minutes) 10 Patient Tolerance Good PT-OP-T Assessment and Plan Start: 10/04/18 08:08 Freq: Status: Active Protocol: Document 03/08/19 09:29 [facility] (Rec: 03/08/19 10:09 [facility] [id number]) Physical Therapy Assessment Goals 5 Impairment postural dysfunction Short Term Goal (STG) Patient to be instructed in neutral postural alignment and body mechancis 11/03/18: achieved STG Duration goal met Fdc Goal (LTG) Patient to demonstrate good understanding of posture and body mechanics principles for neck protection and optimal function in the home with ADL' s and with usual activities. 11/03/18: good progress 12/06/18: mostly met, will need instruction in more physically challenging tasks 01/06/19 Intermittent cuing in challening positions 03/08/19 Continues intermittant cues with challenging positions or activities (only seen for PT 2x since last assesssed) LTG Duration 04/21/19 4 Impairment ROM and strength impairments in neck and shoulders Short Term Goal (STG) Instruct patient in aquatic exercise program and HEP 11/03/18: completed instruction in aquatic exercise program and patient compliant. Continue to progress HEP. STG Duration goal met Early Childhood Associate Goal (LTG) Patient will be independent with HEP and community-based exercise program 12/06/18: continue to progress patients ex program with good tolerance 01/06/19 continuing to progress his HEP 03/08/19: HEP needs further modification and progression LTG Duration 04/21/19 3 Impairment activity tolerance Short Term Goal (STG) Patient able to tolerate 45 min aquatic exercise program without an increase in pain for purposes of long-term pain management and fitness 11/03/18: goal met STG Duration goal met Early Childhood Associate Goal (LTG) Patient will be able to tolerate 45 min land-based exercise session with emphasis on postural correction, ROM, and strengthening without an increase in pain for purposes of long-term fitness and pain managment 01/06/19 Mild increased pain with exercises but he can manage the pain at home, improved recovery time reported 03/08/19: good goal progress LTG Duration 04/21/19 2 Impairment Neck disability index score 56 % Short Term Goal (STG) Decrease disability index score to no greater than 35% 11/03/18: goal progress 12/06/18: 36%. 01/06/19: 52% 03/08/19 44% STG Duration 6 wks Fdc Goal (LTG) Decrease disability index score to no greater than 20% 12/06/18: good goal progress 03/08/19: 44% LTG Duration 03/01/19 1 Impairment neck pain Early Childhood Associate Goal (LTG) Pain no greater than 2/10 with usual activities 01/06/19: minimal progress, managing pain better at home 03/08/19: remains 4-01/09 LTG Duration 03/01/19 Assessment Summary Assessment Patient presents with approval for 12 more PT visits , with goals of continuing to improve his ROM and strength and overall function s/p cervical spine fusion Jun 2018 . He is highly motivated to continue to progress with improving his activity tolerance and function. Pain persists with some increased neurological symptoms left UE. Should benefit from further PT, will monitor symptoms as we attempt to progress his ther ex program emphasizing posture and body mechanics with all. He has been compliant with HEP and reports listening to recommendations for lower resistance with higher repetitions to prevent injury. Physical Therapy Plan Frequency and Duration Frequency of Treatment 2x/Week Duration of Treatment 6 weeks Plan of Care Start Date 03/09/19 Plan of Care End Date 04/21/19 Therapeutic Interventions Therapeutic Interventions Aquatic Therapy Home Exercise Program Manual Therapy Neuromuscular Re-education Patient/Caregiver Education Self-Care/Home Management Soft Tissue Mobilization Taping Therapeutic Activities Therapeutic Exercises Next Visit Focus/Plan Next Note Type Treatment Note Next Visit Plan Progress with therapeutic exercises, functional retraining with emphasis on posture and body mechanics.
--- NOTE | 2019-03-21 16:51 | PT.OTN ---
Current Diagnoses Arthrodesis status (03/21/19) Physical Therapy Treatment Note PT-OP-A Visit Information Start: 10/04/18 08:08 Freq: Status: Active Protocol: Document 03/21/19 15:15 GGD (Rec: 03/21/19 16:49 GGD [id number]) Out-Patient Physical Therapy Visit Information Visit Information Visit Type Treatment Note Visit Start Time 15:15 Visit Stop Time 16:00 Total Visit Minutes 45 Visit Number 26 Number of CARPENTRY PROFESSIONAL Visits 1 Evaluation Information Evaluation Date 10/04/18 PT-OP-B Current Condition Start: 10/04/18 08:08 Freq: Status: Active Protocol: Document 03/08/19 09:29 SAK (Rec: 03/08/19 09:47 SAK [id number]) Current Condition History of Current Condition Onset Date 06/28/18 Current Complaints neck pain, weakness, activity intolerance History of Current Condition Last seen for PT 01/20/19. Has been doing massage therapy, and has had chiropractic ordered. Going to TMJ specialist 03/29/19. Saw physician last week, recommended continue PT. Left sided numbness hand, lateral 3 fingers tingly more since last seen, pain persists not all the time, also burning sensation in ulnar nerve left. c/o occasional weakness right UE, beesting pain right UE with reaching behind his back. Has biological sciences instructor working with him with his L and I claim. Reports low back pain has been better. Wants land- based PT, will continue with aquatic-based PT at this time. Future Testing and Treatments Planned chiropractor, massage, TMJ specialist Treatment Goals Patient/Caregiver Goals pushing the boundaries, trying to increase what I'm able to do; reduce pain while driving, improve ROM and strength. Prior Functional Status Baseline Function- ADL's Independent Baseline Function- Mobility Independent Baseline Function- Gait indep Current Functional Impairments (Reported) Functional Limitations- ADL's see neck and shoulder disability index score PT-OP-C Subjective Start: 10/04/18 08:08 Freq: Status: Active Protocol: Document 03/21/19 15:15 GGD (Rec: 03/21/19 16:49 GGD [id number]) OP-PT Subjective Patient Comments Patient Comments Pt states that he been doing more HEP at home and is a little sore. PT-OP-G Mobility & Gait Start: 10/04/18 08:08 Freq: Status: Active Protocol: Document 10/04/18 11:20 [facility] (Rec: 10/04/18 15:11 [facility] [id number]) OP Gait Assessment Gait Gait Assistance Required: Independent Factors Limiting Gait Function Factors Limiting Gait Function Pain Comments Gait Comments Able to ambulate household and short community distances, requires frequent rest due to back pain. PT-OP-J Posture/Palpation/Skin Start: 10/04/18 08:08 Freq: Status: Active Protocol: Document 03/08/19 09:29 [facility] (Rec: 03/12/19 11:[address] [facility] [id number]) Posture Evaluation Position Sitting Head/C-Spine Posture Forward Head T-Spine Posture Increased Kyphosis Shoulder Posture (R) Rounded (L) Forward Scapula Posture (L) Protracted (R) Protracted Arm Posture (L) Internally Rotated (R) Internally Rotated Skin Assessment Other Assessments Skin Assessment Comments skin intact PT-OP-K Range of Motion Start: 10/04/18 08:08 Freq: Status: Active Protocol: Document 03/08/19 09:29 [facility] (Rec: 03/12/19 11:[address] [facility] [id number]) Cervical Spine Range of Motion Cervical Spine Active Testing Position Sitting Flexion 33 Extension 25 Rotation Left 36 Rotation Right 38 Lateral Flexion Left 20 Lateral Flexion Right 32 Comments patient reported pain with all cervical motions, worst with extension and left sidebending . Shoulder Goniometric Range of Motion Shoulder Left Testing Position Sitting Internal Rotation Behind Back (text) lateral hip Right Shoulder ROM WFL Yes Testing Position Sitting Shoulder ROM Limitations Comments WNL but with c/o shoulder and neck pain with flex and abd PT-OP-M Strength Start: 10/04/18 08:08 Freq: Status: Active Protocol: Document 03/08/19 09:29 [facility] (Rec: 03/12/19 11:[address] [facility] [id number]) Cervical Spine Strength Cervical Spine Manual Muscle Testing Testing Position Sitting Flexion (C1-2) 4 Good Extension 4 Good Rotation Left 4 Good Rotation Right 4 Good Lateral Flexion Left (C3) 4 Good Lateral Flexion Right (C3) 4 Good Shoulder Strength Shoulder Manual Muscle Testing rupert Flexion 4 Good Extension 4 Good Abduction (C5) 4- Good- External Rotation 4 Good Internal Rotation 4+ Good+ Elbow/Forearm Strength Elbow and Forearm Manual Muscle Testing rupert Comments pain medial left elbow with resistance. elbow flex 4/5 right 4+/5 left, extension 4/5 right 4+/5 left Wrist Strength Wrist Manual Muscle Testing Left Flexion (C7) 4+ Good+ Extension (C6) 4+ Good+ Right Flexion (C7) 4 Good Extension (C6) 4 Good PT-OP-Q Treatments Start: 10/04/18 08:08 Freq: Status: Active Protocol: Document 03/21/19 15:15 GGD (Rec: 03/21/19 16:49 GGD [id number]) Cardio Equipment Recumbent Stepper (Sci-Fit) Duration (Minutes) 6 Resistance 3.5-4.0 Seat Position 12 Therapeutic Exercises Supine Exercises 90/90 Abdominal press Resistance self resisted Reps/Minutes 5 x 10 Comments pain free Prone Exercises I, T Prone Exercise Name T's, I's, Y's /c chin tuck Side bilateral Resistance 2# Equipment Used Prone on plinth Reps/Minutes 2 x 10 each Standing Exercises wall posture with ER Standing Exercise Name wall posture with ER Manual Therapy Treatment Soft Tissue Mobilization STM/MFR Body Location upper trap, posterior cervical reg, suboccipital release Mobilization Type Myofascial Release Trigger Point Release Intensity/Depth Moderate Body Position Hooklying Taping postural taping Body Location upper thoracic Type of Tape Kinesio Tape Comments 2 I strips between scapula, I strip each side T10 to anterior shoulder (both for postural correction) PT-OP-R Modalities Start: 10/04/18 08:08 Freq: Status: Active Protocol: Document 03/08/19 09:29 [facility]AK (Rec: 03/12/19 11:52 SAK [id number]) Hot Pack/Cold Pack Treatment Cold Pack Location c/s Patient Position Hooklying Treatment Duration (minutes) 10 Patient Tolerance Good PT-OP-S Aquatic Treatment Start: 10/04/18 08:08 Freq: Status: Active Protocol: Document 10/14/18 10:15 LJ (Rec: 10/14/18 13:56 LJ [email or web address]) Aquatics Treatment Pool Entry/Exit Assistance Independent Water Walking straight leg march with straight UE's Water Level Neck Level Walking Equipment Resistance Fins Level of Assistance Verbal Cues Comments UE paddles sideways with shld ab/ad Water Level Neck Level Walking Equipment Resistance Fins Level of Assistance Verbal Cues Comments UE paddles Backward walking with reverse breastroke UE's Water Level Neck Level Walking Equipment Resistance Fins Level of Assistance Verbal Cues Comments UE paddles forward with breastroke UE's Water Level Neck Level Walking Equipment Resistance Fins Level of Assistance Verbal Cues Comments UE paddles Upper Extremity Exercises shld IR/ER Water Level Neck Level Reps/Duration 10x 2 Comments blue fins, green aqualogix bells shld circles Reps/Duration 10x2 Comments CW, CCW; fins and bells as above shld flex/ext Body Position Standing Water Level Chest Level Reps/Duration 10x Comments equipment as above hor ab/ad Water Level Neck Level Reps/Duration 10x2 Comments equipment as above Upper Extremity Stretches forward walking w/UE paddles Water Level Neck Level Equipment UE paddles Reps/Duration 30 M varying depths corner stretch Body Position Standing Water Level Chest Level Reps/Duration 2x Spinal Exercises cervical SB Body Position Standing Water Level Neck Level Reps/Duration 5x Comments painfree ROM cervical rotation Body Position Standing Equipment Neck Float Reps/Duration 5x Comments painfree ROM Bird In Hand Activities Other Activities bike, ski, abd/add, crossovers , v sit bike, pendulum, lateral pulldowns 10 sec increments Equipment flotation belt, med barbells Swim Strokes sidestroke Laps/Duration 15m Chi Chi Duration (Minutes) 5 PT-OP-T Assessment and Plan Start: 10/04/18 08:08 Freq: Status: Active Protocol: Document 03/21/19 15:15 GGD (Rec: 03/21/19 16:49 GGD [id number]) Physical Therapy Assessment Assessment Summary Assessment Pt need cues for posture and low trap activation with exercise. Pt Physical Therapy Plan Frequency and Duration Frequency of Treatment 2x/Week Duration of Treatment 6 weeks Plan of Care Start Date 03/09/19 Plan of Care End Date 04/21/19 Next Visit Focus/Plan Next Note Type Treatment Note Next Visit Plan Progress with therapeutic exercises, posture and body mechanics.
--- NOTE | 2019-03-23 10:52 | PT.OTN ---
Current Diagnoses Arthrodesis status (03/23/19) Physical Therapy Treatment Note PT-OP-A Visit Information Start: 10/04/18 08:08 Freq: Status: Active Protocol: Document 03/23/19 10:47 [facility] (Rec: 03/23/19 10:51 [facility] [id number]) Out-Patient Physical Therapy Visit Information Visit Information Visit Type Treatment Note Visit Start Time 09:00 Visit Stop Time 09:45 Total Visit Minutes 45 Visit Number 27 Number of ORDER FULFILLMENT SPECIALIST Visits 0 PT-OP-B Current Condition Start: 10/04/18 08:08 Freq: Status: Active Protocol: Document 03/08/19 09:29 SAK (Rec: 03/08/19 09:47 SAK [id number]) Current Condition History of Current Condition Onset Date 06/28/18 Current Complaints neck pain, weakness, activity intolerance History of Current Condition Last seen for PT 01/20/19. Has been doing massage therapy, and has had chiropractic ordered. Going to TMJ specialist 03/29/19. Saw physician last week, recommended continue PT. Left sided numbness hand, lateral 3 fingers tingly more since last seen, pain persists not all the time, also burning sensation in ulnar nerve left. c/o occasional weakness right UE, beesting pain right UE with reaching behind his back. Has insurance attorney working with him with his L and I claim. Reports low back pain has been better. Wants land- based PT, will continue with aquatic-based PT at this time. Future Testing and Treatments Planned chiropractor, massage, TMJ specialist Treatment Goals Patient/Caregiver Goals pushing the boundaries, trying to increase what I'm able to do; reduce pain while driving, improve ROM and strength. Prior Functional Status Baseline Function- ADL's Independent Baseline Function- Mobility Independent Baseline Function- Gait indep Current Functional Impairments (Reported) Functional Limitations- ADL's see neck and shoulder disability index score PT-OP-C Subjective Start: 10/04/18 08:08 Freq: Status: Active Protocol: Document 03/23/19 10:47 [facility] (Rec: 03/23/19 10:51 [facility] [id number]) OP-PT Subjective Patient Comments Patient Comments Reports he has been awake x 30 hours due to pain but still working on his exercises and going to the pool PT-OP-G Mobility & Gait Start: 10/04/18 08:08 Freq: Status: Active Protocol: Document 10/04/18 11:20 [facility] (Rec: 10/04/18 15:11 [facility] [id number]) OP Gait Assessment Gait Gait Assistance Required: Independent Factors Limiting Gait Function Factors Limiting Gait Function Pain Comments Gait Comments Able to ambulate household and short community distances, requires frequent rest due to back pain. PT-OP-J Posture/Palpation/Skin Start: 10/04/18 08:08 Freq: Status: Active Protocol: Document 03/08/19 09:29 [facility] (Rec: 03/12/19 11:52 [facility] [id number]) Posture Evaluation Position Sitting Head/C-Spine Posture Forward Head T-Spine Posture Increased Kyphosis Shoulder Posture (R) Rounded (L) Forward Scapula Posture (L) Protracted (R) Protracted Arm Posture (L) Internally Rotated (R) Internally Rotated Skin Assessment Other Assessments Skin Assessment Comments skin intact PT-OP-K Range of Motion Start: 10/04/18 08:08 Freq: Status: Active Protocol: Document 03/08/19 09:29 [facility] (Rec: 03/12/19 11:52 [facility] [id number]) Cervical Spine Range of Motion Cervical Spine Active Testing Position Sitting Flexion 33 Extension 25 Rotation Left 36 Rotation Right 38 Lateral Flexion Left 20 Lateral Flexion Right 32 Comments patient reported pain with all cervical motions, worst with extension and left sidebending . Shoulder Goniometric Range of Motion Shoulder Left Testing Position Sitting Internal Rotation Behind Back (text) lateral hip Right Shoulder ROM WFL Yes Testing Position Sitting Shoulder ROM Limitations Comments WNL but with c/o shoulder and neck pain with flex and abd PT-OP-M Strength Start: 10/04/18 08:08 Freq: Status: Active Protocol: Document 03/08/19 09:29 [facility] (Rec: 03/12/19 11:52 [facility] [id number]) Cervical Spine Strength Cervical Spine Manual Muscle Testing Testing Position Sitting Flexion (C1-2) 4 Good Extension 4 Good Rotation Left 4 Good Rotation Right 4 Good Lateral Flexion Left (C3) 4 Good Lateral Flexion Right (C3) 4 Good Shoulder Strength Shoulder Manual Muscle Testing rupert Flexion 4 Good Extension 4 Good Abduction (C5) 4- Good- External Rotation 4 Good Internal Rotation 4+ Good+ Elbow/Forearm Strength Elbow and Forearm Manual Muscle Testing rupert Comments pain medial left elbow with resistance. elbow flex 4/5 right 4+/5 left, extension 4/5 right 4+/5 left Wrist Strength Wrist Manual Muscle Testing Left Flexion (C7) 4+ Good+ Extension (C6) 4+ Good+ Right Flexion (C7) 4 Good Extension (C6) 4 Good PT-OP-Q Treatments Start: 10/04/18 08:08 Freq: Status: Active Protocol: Document 03/23/19 10:47 [facility] (Rec: 03/23/19 10:51 [facility] [email or web address]) Cardio Equipment Recumbent Elliptical (Biodex) Duration (Minutes) 8 Resistance 8 Seat Position 12 Other UE's and LE's Gym Equipment Cable Column (Body Solid) mid row Resistance 30,20 Reps/Time 15, 15 Lat pull Resistance 30 Reps/Time 2x15 Therapeutic Exercises Supine Exercises pec stretch Supine Exercise Name supine pec stretch over the foam roll full body stretch Supine Exercise Name over the foam roll posture press Supine Exercise Name with ER Manual Therapy Treatment Soft Tissue Mobilization STM/MFR Body Location upper trap, posterior cervical reg, suboccipital release Mobilization Type Myofascial Release Trigger Point Release Intensity/Depth Moderate Body Position Hooklying Nerve Glides 1 Nerve median and ulnar nerve glides over 1/2 foam roll PT-OP-R Modalities Start: 10/04/18 08:08 Freq: Status: Active Protocol: Document 03/08/19 09:29 SAK (Rec: 03/12/19 11:52 SAK [id number]) Hot Pack/Cold Pack Treatment Cold Pack Location c/s Patient Position Hooklying Treatment Duration (minutes) 10 Patient Tolerance Good PT-OP-S Aquatic Treatment Start: 10/04/18 08:08 Freq: Status: Active Protocol: Document 10/14/18 10:15 LJ (Rec: 10/14/18 13:56 LJ [email or web address]) Aquatics Treatment Pool Entry/Exit Assistance Independent Water Walking straight leg march with straight UE's Water Level Neck Level Walking Equipment Resistance Fins Level of Assistance Verbal Cues Comments UE paddles sideways with shld ab/ad Water Level Neck Level Walking Equipment Resistance Fins Level of Assistance Verbal Cues Comments UE paddles Backward walking with reverse breastroke UE's Water Level Neck Level Walking Equipment Resistance Fins Level of Assistance Verbal Cues Comments UE paddles forward with breastroke UE's Water Level Neck Level Walking Equipment Resistance Fins Level of Assistance Verbal Cues Comments UE paddles Upper Extremity Exercises shld IR/ER Water Level Neck Level Reps/Duration 10x 2 Comments blue fins, green aqualogix bells shld circles Reps/Duration 10x2 Comments CW, CCW; fins and bells as above shld flex/ext Body Position Standing Water Level Chest Level Reps/Duration 10x Comments equipment as above hor ab/ad Water Level Neck Level Reps/Duration 10x2 Comments equipment as above Upper Extremity Stretches forward walking w/UE paddles Water Level Neck Level Equipment UE paddles Reps/Duration 30 M varying depths corner stretch Body Position Standing Water Level Chest Level Reps/Duration 2x Spinal Exercises cervical SB Body Position Standing Water Level Neck Level Reps/Duration 5x Comments painfree ROM cervical rotation Body Position Standing Equipment Neck Float Reps/Duration 5x Comments painfree ROM [place] Activities Other Activities bike, ski, abd/add, crossovers , v sit bike, pendulum, lateral pulldowns 10 sec increments Equipment flotation belt, med barbells Swim Strokes sidestroke Laps/Duration 15m Chi Chi Duration (Minutes) 5 PT-OP-T Assessment and Plan Start: 10/04/18 08:08 Freq: Status: Active Protocol: Document 03/23/19 10:47 [facility] (Rec: 03/23/19 10:51 [facility] [id number]) Physical Therapy Assessment Assessment Summary Assessment good tolerance for nerve glides, able to take almost full ROM prior to finger tingling with ULTT1 Physical Therapy Plan Frequency and Duration Frequency of Treatment 2x/Week Duration of Treatment 6 weeks Plan of Care Start Date 03/09/19 Plan of Care End Date 04/21/19 Therapeutic Interventions Therapeutic Interventions Aquatic Therapy Home Exercise Program Manual Therapy Neuromuscular Re-education Patient/Caregiver Education Self-Care/Home Management Soft Tissue Mobilization Taping Therapeutic Activities Therapeutic Exercises Next Visit Focus/Plan Next Note Type Treatment Note Next Visit Plan Progress with therapeutic exercises, posture and body mechanics.
--- NOTE | 2019-03-27 16:16 | PT.OTN ---
Current Diagnoses Arthrodesis status (03/27/19) Physical Therapy Treatment Note PT-OP-A Visit Information Start: 10/04/18 08:08 Freq: Status: Active Protocol: Document 03/27/19 09:00 LRN (Rec: 03/27/19 09:52 LRN [id number]) Out-Patient Physical Therapy Visit Information Visit Information Visit Type Treatment Note Visit Start Time 09:00 Visit Stop Time 09:52 Total Visit Minutes 52 Visit Number 28 Number of ICT BUSINESS DEVELOPMENT MANAGER Visits 0 Evaluation Information Evaluation Date 10/04/18 Precautions Precautions c/s fusion high irritability of symptoms PT-OP-B Current Condition Start: 10/04/18 08:08 Freq: Status: Active Protocol: Document 03/08/19 09:29 SAK (Rec: 03/08/19 09:47 SAK [id number]) Current Condition History of Current Condition Onset Date 06/28/18 Current Complaints neck pain, weakness, activity intolerance History of Current Condition Last seen for PT 01/20/19. Has been doing massage therapy, and has had chiropractic ordered. Going to TMJ specialist 03/29/19. Saw physician last week, recommended continue PT. Left sided numbness hand, lateral 3 fingers tingly more since last seen, pain persists not all the time, also burning sensation in ulnar nerve left. c/o occasional weakness right UE, beesting pain right UE with reaching behind his back. Has estate planning attorney working with him with his L and I claim. Reports low back pain has been better. Wants land- based PT, will continue with aquatic-based PT at this time. Future Testing and Treatments Planned chiropractor, massage, TMJ specialist Treatment Goals Patient/Caregiver Goals pushing the boundaries, trying to increase what I'm able to do; reduce pain while driving, improve ROM and strength. Prior Functional Status Baseline Function- ADL's Independent Baseline Function- Mobility Independent Baseline Function- Gait indep Current Functional Impairments (Reported) Functional Limitations- ADL's see neck and shoulder disability index score PT-OP-C Subjective Start: 10/04/18 08:08 Freq: Status: Active Protocol: Document 03/27/19 09:00 LRN (Rec: 03/27/19 09:52 LRN [id number]) OP-PT Subjective Patient Comments Patient Comments Pain is 5-6/10. Hasn't slept well for over a week. Has not been able to work out as much . PT-OP-G Mobility & Gait Start: 10/04/18 08:08 Freq: Status: Active Protocol: Document 10/04/18 11:20 [facility] (Rec: 10/04/18 15:11 [facility] [id number]) OP Gait Assessment Gait Gait Assistance Required: Independent Factors Limiting Gait Function Factors Limiting Gait Function Pain Comments Gait Comments Able to ambulate household and short community distances, requires frequent rest due to back pain. PT-OP-J Posture/Palpation/Skin Start: 10/04/18 08:08 Freq: Status: Active Protocol: Document 03/08/19 09:29 [facility] (Rec: 03/12/19 11:52 [facility] [id number]) Posture Evaluation Position Sitting Head/C-Spine Posture Forward Head T-Spine Posture Increased Kyphosis Shoulder Posture (R) Rounded (L) Forward Scapula Posture (L) Protracted (R) Protracted Arm Posture (L) Internally Rotated (R) Internally Rotated Skin Assessment Other Assessments Skin Assessment Comments skin intact PT-OP-K Range of Motion Start: 10/04/18 08:08 Freq: Status: Active Protocol: Document 03/08/19 09:29 [facility] (Rec: 03/12/19 11:52 [facility] [id number]) Cervical Spine Range of Motion Cervical Spine Active Testing Position Sitting Flexion 33 Extension 25 Rotation Left 36 Rotation Right 38 Lateral Flexion Left 20 Lateral Flexion Right 32 Comments patient reported pain with all cervical motions, worst with extension and left sidebending . Shoulder Goniometric Range of Motion Shoulder Left Testing Position Sitting Internal Rotation Behind Back (text) lateral hip Right Shoulder ROM WFL Yes Testing Position Sitting Shoulder ROM Limitations Comments WNL but with c/o shoulder and neck pain with flex and abd PT-OP-M Strength Start: 10/04/18 08:08 Freq: Status: Active Protocol: Document 03/08/19 09:29 [facility] (Rec: 03/12/19 11:52 [facility] [id number]) Cervical Spine Strength Cervical Spine Manual Muscle Testing Testing Position Sitting Flexion (C1-2) 4 Good Extension 4 Good Rotation Left 4 Good Rotation Right 4 Good Lateral Flexion Left (C3) 4 Good Lateral Flexion Right (C3) 4 Good Shoulder Strength Shoulder Manual Muscle Testing rupert Flexion 4 Good Extension 4 Good Abduction (C5) 4- Good- External Rotation 4 Good Internal Rotation 4+ Good+ Elbow/Forearm Strength Elbow and Forearm Manual Muscle Testing rupert Comments pain medial left elbow with resistance. elbow flex 4/5 right 4+/5 left, extension 4/5 right 4+/5 left Wrist Strength Wrist Manual Muscle Testing Left Flexion (C7) 4+ Good+ Extension (C6) 4+ Good+ Right Flexion (C7) 4 Good Extension (C6) 4 Good PT-OP-Q Treatments Start: 10/04/18 08:08 Freq: Status: Active Protocol: Document 03/27/19 09:00 LRN (Rec: 03/27/19 09:52 LRN [id number]) Cardio Equipment Recumbent Stepper (Sci-Fit) Duration (Minutes) 6 Resistance 3.5-4.0 Seat Position 12 Gym Equipment Cable Column (Body Solid) Lat pull Resistance 30 Reps/Time 2x15 Therapeutic Exercises Supine Exercises Cervical stretch Supine Exercise Name Sidebend Side bilateral Reps/Minutes 10 sec x 6 Prone Exercises thread the needle Prone Exercise Name quadruped position Side bilateral Reps/Minutes x 2 reps Comments trunk rotation Sidelying Exercises Shoulder rolls Side left Reps/Minutes 10 x forward and backward Standing Exercises Intrascapular doorway stretch Side bilateral Reps/Minutes 10 sec holds x 6 Other Exercises child's pose Reps/Minutes 3x Comments forward and lat, incorporating deep breathing cat/cow Reps/Minutes 4' Comments Phy cuing for ext at mid T/S keeping head in neutral Manual Therapy Treatment Soft Tissue Mobilization STM/MFR Body Location upper trap, posterior cervical reg, suboccipital release Mobilization Type Myofascial Release Trigger Point Release Intensity/Depth Moderate Body Position Hooklying Manual Traction Cervical Reps/Duration 5 min Comments very gentle for muscle relaxation and pain management Taping postural taping Body Location upper thoracic Type of Tape Kinesio Tape Comments 2 I strips between scapula, I strip each side T10 to anterior shoulder (both for postural correction) PT-OP-R Modalities Start: 10/04/18 08:08 Freq: Status: Active Protocol: Document 03/08/19 09:29 SAK (Rec: 03/12/19 11:52 SAK [id number]) Hot Pack/Cold Pack Treatment Cold Pack Location c/s Patient Position Hooklying Treatment Duration (minutes) 10 Patient Tolerance Good PT-OP-S Aquatic Treatment Start: 10/04/18 08:08 Freq: Status: Active Protocol: Document 10/14/18 10:15 LJ (Rec: 10/14/18 13:56 LJ [email or web address]) Aquatics Treatment Pool Entry/Exit Assistance Independent Water Walking straight leg march with straight UE's Water Level Neck Level Walking Equipment Resistance Fins Level of Assistance Verbal Cues Comments UE paddles sideways with shld ab/ad Water Level Neck Level Walking Equipment Resistance Fins Level of Assistance Verbal Cues Comments UE paddles Backward walking with reverse breastroke UE's Water Level Neck Level Walking Equipment Resistance Fins Level of Assistance Verbal Cues Comments UE paddles forward with breastroke UE's Water Level Neck Level Walking Equipment Resistance Fins Level of Assistance Verbal Cues Comments UE paddles Upper Extremity Exercises shld IR/ER Water Level Neck Level Reps/Duration 10x 2 Comments blue fins, green aqualogix bells shld circles Reps/Duration 10x2 Comments CW, CCW; fins and bells as above shld flex/ext Body Position Standing Water Level Chest Level Reps/Duration 10x Comments equipment as above hor ab/ad Water Level Neck Level Reps/Duration 10x2 Comments equipment as above Upper Extremity Stretches forward walking w/UE paddles Water Level Neck Level Equipment UE paddles Reps/Duration 30 M varying depths corner stretch Body Position Standing Water Level Chest Level Reps/Duration 2x Spinal Exercises cervical SB Body Position Standing Water Level Neck Level Reps/Duration 5x Comments painfree ROM cervical rotation Body Position Standing Equipment Neck Float Reps/Duration 5x Comments painfree ROM [place] Activities Other Activities bike, ski, abd/add, crossovers , v sit bike, pendulum, lateral pulldowns 10 sec increments Equipment flotation belt, med barbells Swim Strokes sidestroke Laps/Duration 15m Chi Chi Duration (Minutes) 5 PT-OP-T Assessment and Plan Start: 10/04/18 08:08 Freq: Status: Active Protocol: Document 03/27/19 09:00 LRN (Rec: 03/27/19 09:52 LRN [id number]) Physical Therapy Assessment Assessment Summary Assessment Pt is having greater pain today, rated 5/10 and is having more difficulty sleeping; therefore intensity of ex today was decreased. Pt requires minimal cervical traction to obtain some relief of UE symptoms. Assess tolerance next visit for exercise. Physical Therapy Plan Frequency and Duration Frequency of Treatment 2x/Week Duration of Treatment 6 weeks Plan of Care Start Date 03/09/19 Plan of Care End Date 04/21/19 Next Visit Focus/Plan Next Note Type Treatment Note Next Visit Plan Progress with therapeutic exercises, posture and body mechanics as pt tolerates.
--- NOTE | 2019-03-31 09:45 | PT.OTN ---
Current Diagnoses Arthrodesis status (03/31/19) Physical Therapy Treatment Note PT-OP-A Visit Information Start: 10/04/18 08:08 Freq: Status: Active Protocol: Document 03/31/19 09:00 DCW (Rec: 03/31/19 09:44 DCW [id number]) Out-Patient Physical Therapy Visit Information Visit Information Visit Type Treatment Note Visit Start Time 09:00 Visit Stop Time 09:45 Total Visit Minutes 45 Visit Number 29 Number of FIELD CARE COORDINATOR Visits 0 Evaluation Information Evaluation Date 10/04/18 Precautions Precautions c/s fusion high irritability of symptoms PT-OP-B Current Condition Start: 10/04/18 08:08 Freq: Status: Active Protocol: Document 03/08/19 09:29 SAK (Rec: 03/08/19 09:47 SAK [id number]) Current Condition History of Current Condition Onset Date 06/28/18 Current Complaints neck pain, weakness, activity intolerance History of Current Condition Last seen for PT 01/20/19. Has been doing massage therapy, and has had chiropractic ordered. Going to TMJ specialist 03/29/19. Saw physician last week, recommended continue PT. Left sided numbness hand, lateral 3 fingers tingly more since last seen, pain persists not all the time, also burning sensation in ulnar nerve left. c/o occasional weakness right UE, beesting pain right UE with reaching behind his back. Has litigation attorney working with him with his L and I claim. Reports low back pain has been better. Wants land- based PT, will continue with aquatic-based PT at this time. Future Testing and Treatments Planned chiropractor, massage, TMJ specialist Treatment Goals Patient/Caregiver Goals pushing the boundaries, trying to increase what I'm able to do; reduce pain while driving, improve ROM and strength. Prior Functional Status Baseline Function- ADL's Independent Baseline Function- Mobility Independent Baseline Function- Gait indep Current Functional Impairments (Reported) Functional Limitations- ADL's see neck and shoulder disability index score PT-OP-C Subjective Start: 10/04/18 08:08 Freq: Status: Active Protocol: Document 03/31/19 09:00 DCW (Rec: 03/31/19 09:44 DCW [id number]) OP-PT Subjective Patient Comments Patient Comments Pt reports he still isn't sleeping well. Notes that the K-tape took a bit of skin off , and left some adhesive behind, my had to scrub it off for me. Also reports that the TMJ specialist he was supposed to see on 03/29/19 has been changed to 04/07/19 PT-OP-G Mobility & Gait Start: 10/04/18 08:08 Freq: Status: Active Protocol: Document 10/04/18 11:20 [facility] (Rec: 10/04/18 15:11 [facility] [id number]) OP Gait Assessment Gait Gait Assistance Required: Independent Factors Limiting Gait Function Factors Limiting Gait Function Pain Comments Gait Comments Able to ambulate household and short community distances, requires frequent rest due to back pain. PT-OP-J Posture/Palpation/Skin Start: 10/04/18 08:08 Freq: Status: Active Protocol: Document 03/08/19 09:29 [facility] (Rec: 03/12/19 11:52 [facility] [id number]) Posture Evaluation Position Sitting Head/C-Spine Posture Forward Head T-Spine Posture Increased Kyphosis Shoulder Posture (R) Rounded,(L) Forward Scapula Posture (L) Protracted,(R) Protracted Arm Posture (L) Internally Rotated,(R) Internally Rotated Skin Assessment Other Assessments Skin Assessment Comments skin intact PT-OP-K Range of Motion Start: 10/04/18 08:08 Freq: Status: Active Protocol: Document 03/08/19 09:29 [facility] (Rec: 03/12/19 11:52 [facility] [id number]) Cervical Spine Range of Motion Cervical Spine Active Testing Position Sitting Flexion 33 Extension 25 Rotation Left 36 Rotation Right 38 Lateral Flexion Left 20 Lateral Flexion Right 32 Comments patient reported pain with all cervical motions, worst with extension and left sidebending . Shoulder Goniometric Range of Motion Shoulder Left Testing Position Sitting Internal Rotation Behind Back (text) lateral hip Right Shoulder ROM WFL Yes Testing Position Sitting Shoulder ROM Limitations Comments WNL but with c/o shoulder and neck pain with flex and abd PT-OP-M Strength Start: 10/04/18 08:08 Freq: Status: Active Protocol: Document 03/08/19 09:29 [facility] (Rec: 03/12/19 11:52 [facility] [id number]) Cervical Spine Strength Cervical Spine Manual Muscle Testing Testing Position Sitting Flexion (C1-2) 4 Good Extension 4 Good Rotation Left 4 Good Rotation Right 4 Good Lateral Flexion Left (C3) 4 Good Lateral Flexion Right (C3) 4 Good Shoulder Strength Shoulder Manual Muscle Testing rupert Flexion 4 Good Extension 4 Good Abduction (C5) 4- Good- External Rotation 4 Good Internal Rotation 4+ Good+ Elbow/Forearm Strength Elbow and Forearm Manual Muscle Testing rupert Comments pain medial left elbow with resistance. elbow flex 4/5 right 4+/5 left, extension 4/5 right 4+/5 left Wrist Strength Wrist Manual Muscle Testing Left Flexion (C7) 4+ Good+ Extension (C6) 4+ Good+ Right Flexion (C7) 4 Good Extension (C6) 4 Good PT-OP-Q Treatments Start: 10/04/18 08:08 Freq: Status: Active Protocol: Document 03/31/19 09:00 DCW (Rec: 03/31/19 09:44 DCW [id number]) Cardio Equipment Recumbent Stepper (Sci-Fit) Duration (Minutes) 10 Resistance 3.5-4.0 Seat Position 13 Gym Equipment Cable Column (Body Solid) mid row Resistance 30 Reps/Time 2x15 Lat pull Resistance 30 Reps/Time 2x15 Therapeutic Exercises Supine Exercises pec stretch Supine Exercise Name supine pec stretch over the foam roll Prone Exercises thread the needle Prone Exercise Name quadruped position Side bilateral Reps/Minutes x 2 reps Comments trunk rotation I, T Prone Exercise Name T's, I's, Y's /c chin tuck Side bilateral Resistance 2# Equipment Used Prone on plinth Reps/Minutes 2 x 10 each Other Exercises child's pose Reps/Minutes 3x Comments forward and lat, incorporating deep breathing cat/cow Reps/Minutes 4' Comments cuing for ext at mid T/S keeping head in neutral Manual Therapy Treatment Soft Tissue Mobilization STM/MFR Body Location upper trap, posterior cervical reg, suboccipital release Mobilization Type Myofascial Release,Trigger Point Release Intensity/Depth Moderate Body Position Hooklying Manual Traction Cervical Reps/Duration 5 min Comments very gentle for muscle relaxation and pain management PT-OP-R Modalities Start: 10/04/18 08:08 Freq: Status: Active Protocol: Document 03/08/19 09:29 SAK (Rec: 03/12/19 11:52 SAK [id number]) Hot Pack/Cold Pack Treatment Cold Pack Location c/s Patient Position Hooklying Treatment Duration (minutes) 10 Patient Tolerance Good PT-OP-S Aquatic Treatment Start: 10/04/18 08:08 Freq: Status: Active Protocol: Document 10/14/18 10:15 LJ (Rec: 10/14/18 13:56 LJ [id number]) Aquatics Treatment Pool Entry/Exit Assistance Independent Water Walking straight leg march with straight UE's Water Level Neck Level Walking Equipment Resistance Fins Level of Assistance Verbal Cues Comments UE paddles sideways with shld ab/ad Water Level Neck Level Walking Equipment Resistance Fins Level of Assistance Verbal Cues Comments UE paddles Backward walking with reverse breastroke UE's Water Level Neck Level Walking Equipment Resistance Fins Level of Assistance Verbal Cues Comments UE paddles forward with breastroke UE's Water Level Neck Level Walking Equipment Resistance Fins Level of Assistance Verbal Cues Comments UE paddles Upper Extremity Exercises shld IR/ER Water Level Neck Level Reps/Duration 10x 2 Comments blue fins, green aqualogix bells shld circles Reps/Duration 10x2 Comments CW, CCW; fins and bells as above shld flex/ext Body Position Standing Water Level Chest Level Reps/Duration 10x Comments equipment as above hor ab/ad Water Level Neck Level Reps/Duration 10x2 Comments equipment as above Upper Extremity Stretches forward walking w/UE paddles Water Level Neck Level Equipment UE paddles Reps/Duration 30 M varying depths corner stretch Body Position Standing Water Level Chest Level Reps/Duration 2x Spinal Exercises cervical SB Body Position Standing Water Level Neck Level Reps/Duration 5x Comments painfree ROM cervical rotation Body Position Standing Equipment Neck Float Reps/Duration 5x Comments painfree ROM [place] Activities Other Activities bike, ski, abd/add, crossovers , v sit bike, pendulum, lateral pulldowns 10 sec increments Equipment flotation belt, med barbells Swim Strokes sidestroke Laps/Duration 15m Chi Chi Duration (Minutes) 5 PT-OP-T Assessment and Plan Start: 10/04/18 08:08 Freq: Status: Active Protocol: Document 03/31/19 09:00 DCW (Rec: 03/31/19 09:44 DCW [id number]) Physical Therapy Assessment Impairments Impairments Activity Tolerance,Pain, Posture,ROM,Strength Goals 5 Impairment postural dysfunction Short Term Goal (STG) Patient to be instructed in neutral postural alignment and body mechancis 11/03/18: achieved STG Duration goal met Asphalt Tile Floor Layer Goal (LTG) Patient to demonstrate good understanding of posture and body mechanics principles for neck protection and optimal function in the home with ADL' s and with usual activities. 11/03/18: good progress 12/06/18: mostly met, will need instruction in more physically challenging tasks 01/06/19 Intermittent cuing in challening positions 03/08/19 Continues intermittant cues with challenging positions or activities (only seen for PT 2x since last assesssed) LTG Duration 04/21/19 4 Impairment ROM and strength impairments in neck and shoulders Short Term Goal (STG) Instruct patient in aquatic exercise program and HEP 11/03/18: completed instruction in aquatic exercise program and patient compliant. Continue to progress HEP. STG Duration goal met Shelter Goal (LTG) Patient will be independent with HEP and community-based exercise program 12/06/18: continue to progress patients ex program with good tolerance 01/06/19 continuing to progress his HEP 03/08/19: HEP needs further modification and progression LTG Duration 04/21/19 3 Impairment activity tolerance Short Term Goal (STG) Patient able to tolerate 45 min aquatic exercise program without an increase in pain for purposes of long-term pain management and fitness 11/03/18: goal met STG Duration goal met Shelter Goal (LTG) Patient will be able to tolerate 45 min land-based exercise session with emphasis on postural correction, ROM, and strengthening without an increase in pain for purposes of long-term fitness and pain managment 01/06/19 Mild increased pain with exercises but he can manage the pain at home, improved recovery time reported 03/08/19: good goal progress LTG Duration 04/21/19 2 Impairment Neck disability index score 56 % Short Term Goal (STG) Decrease disability index score to no greater than 35% 11/03/18: goal progress 12/06/18: 36%. 01/06/19: 52% 03/08/19 44% STG Duration 6 wks Asphalt Tile Floor Layer Goal (LTG) Decrease disability index score to no greater than 20% 12/06/18: good goal progress 03/08/19: 44% LTG Duration 03/01/19 1 Impairment neck pain Shelter Goal (LTG) Pain no greater than 2/10 with usual activities 01/06/19: minimal progress, managing pain better at home 03/08/19: remains 4-01/09 LTG Duration 03/01/19 Assessment Summary Assessment Pt making some overall progress, but demonstrates continued dysfunction throughout his spine and upper extremities. Physical Therapy Plan Frequency and Duration Frequency of Treatment 2x/Week Duration of Treatment 6 weeks Plan of Care Start Date 03/09/19 Plan of Care End Date 04/21/19 Therapeutic Interventions Therapeutic Interventions Aquatic Therapy,Home Exercise Program,Manual Therapy, Neuromuscular Re-education, Patient/Caregiver Education, Self-Care/Home Management,Soft Tissue Mobilization,Taping, Therapeutic Activities, Therapeutic Exercises Next Visit Focus/Plan Next Note Type Treatment Note Next Visit Plan Progress with therapeutic exercises, posture and body mechanics as pt tolerates.
--- NOTE | 2019-04-04 13:34 | PT.OTN ---
Current Diagnoses Arthrodesis status (04/04/19) Physical Therapy Treatment Note PT-OP-A Visit Information Start: 10/04/18 08:08 Freq: Status: Active Protocol: Document 04/04/19 13:30 GGD (Rec: 04/04/19 13:34 GGD [id number]) Out-Patient Physical Therapy Visit Information Visit Information Visit Type Treatment Note Visit Start Time 09:45 Visit Stop Time 10:30 Total Visit Minutes 45 Visit Number 30 Number of INDUSTRIAL PSYCHOLOGY PROFESSOR Visits 1 Evaluation Information Evaluation Date 10/04/18 PT-OP-B Current Condition Start: 10/04/18 08:08 Freq: Status: Active Protocol: Document 03/08/19 09:29 SAK (Rec: 03/08/19 09:47 SAK [id number]) Current Condition History of Current Condition Onset Date 06/28/18 Current Complaints neck pain, weakness, activity intolerance History of Current Condition Last seen for PT 01/20/19. Has been doing massage therapy, and has had chiropractic ordered. Going to TMJ specialist 03/29/19. Saw physician last week, recommended continue PT. Left sided numbness hand, lateral 3 fingers tingly more since last seen, pain persists not all the time, also burning sensation in ulnar nerve left. c/o occasional weakness right UE, beesting pain right UE with reaching behind his back. Has attorney general working with him with his L and I claim. Reports low back pain has been better. Wants land- based PT, will continue with aquatic-based PT at this time. Future Testing and Treatments Planned chiropractor, massage, TMJ specialist Treatment Goals Patient/Caregiver Goals pushing the boundaries, trying to increase what I'm able to do; reduce pain while driving, improve ROM and strength. Prior Functional Status Baseline Function- ADL's Independent Baseline Function- Mobility Independent Baseline Function- Gait indep Current Functional Impairments (Reported) Functional Limitations- ADL's see neck and shoulder disability index score PT-OP-C Subjective Start: 10/04/18 08:08 Freq: Status: Active Protocol: Document 04/04/19 13:30 GGD (Rec: 04/04/19 13:34 GGD [id number]) OP-PT Subjective Patient Comments Patient Comments Pt states he is slowly increasing activity without increase in symptoms. PT-OP-G Mobility & Gait Start: 10/04/18 08:08 Freq: Status: Active Protocol: Document 10/04/18 11:20 [facility] (Rec: 10/04/18 15:11 [facility] [id number]) OP Gait Assessment Gait Gait Assistance Required: Independent Factors Limiting Gait Function Factors Limiting Gait Function Pain Comments Gait Comments Able to ambulate household and short community distances, requires frequent rest due to back pain. PT-OP-J Posture/Palpation/Skin Start: 10/04/18 08:08 Freq: Status: Active Protocol: Document 03/08/19 09:29 [facility] (Rec: 03/12/19 11:52 [facility] [id number]) Posture Evaluation Position Sitting Head/C-Spine Posture Forward Head T-Spine Posture Increased Kyphosis Shoulder Posture (R) Rounded,(L) Forward Scapula Posture (L) Protracted,(R) Protracted Arm Posture (L) Internally Rotated,(R) Internally Rotated Skin Assessment Other Assessments Skin Assessment Comments skin intact PT-OP-K Range of Motion Start: 10/04/18 08:08 Freq: Status: Active Protocol: Document 03/08/19 09:29 [facility] (Rec: 03/12/19 11:52 [facility] [id number]) Cervical Spine Range of Motion Cervical Spine Active Testing Position Sitting Flexion 33 Extension 25 Rotation Left 36 Rotation Right 38 Lateral Flexion Left 20 Lateral Flexion Right 32 Comments patient reported pain with all cervical motions, worst with extension and left sidebending . Shoulder Goniometric Range of Motion Shoulder Left Testing Position Sitting Internal Rotation Behind Back (text) lateral hip Right Shoulder ROM WFL Yes Testing Position Sitting Shoulder ROM Limitations Comments WNL but with c/o shoulder and neck pain with flex and abd PT-OP-M Strength Start: 10/04/18 08:08 Freq: Status: Active Protocol: Document 03/08/19 09:29 [facility] (Rec: 03/12/19 11:52 [facility] [id number]) Cervical Spine Strength Cervical Spine Manual Muscle Testing Testing Position Sitting Flexion (C1-2) 4 Good Extension 4 Good Rotation Left 4 Good Rotation Right 4 Good Lateral Flexion Left (C3) 4 Good Lateral Flexion Right (C3) 4 Good Shoulder Strength Shoulder Manual Muscle Testing rupert Flexion 4 Good Extension 4 Good Abduction (C5) 4- Good- External Rotation 4 Good Internal Rotation 4+ Good+ Elbow/Forearm Strength Elbow and Forearm Manual Muscle Testing rupert Comments pain medial left elbow with resistance. elbow flex 4/5 right 4+/5 left, extension 4/5 right 4+/5 left Wrist Strength Wrist Manual Muscle Testing Left Flexion (C7) 4+ Good+ Extension (C6) 4+ Good+ Right Flexion (C7) 4 Good Extension (C6) 4 Good PT-OP-Q Treatments Start: 10/04/18 08:08 Freq: Status: Active Protocol: Document 04/04/19 13:30 GGD (Rec: 04/04/19 13:34 GGD [id number]) Cardio Equipment Recumbent Stepper (Sci-Fit) Duration (Minutes) 10 Resistance 3.5-4.0 Seat Position 13 Gym Equipment Cable Column (Body Solid) mid row Resistance 30 Reps/Time 2x15 Lat pull Resistance 30 Reps/Time 2x15 Therapeutic Exercises Supine Exercises pec stretch Supine Exercise Name supine pec stretch over the foam roll Prone Exercises thread the needle Prone Exercise Name quadruped position Side bilateral Reps/Minutes x 2 reps Comments trunk rotation I, T Prone Exercise Name T's, I's, Y's /c chin tuck Side bilateral Resistance 2# Equipment Used Prone on plinth Reps/Minutes 2 x 10 each Other Exercises child's pose Reps/Minutes 3x Comments forward and lat, incorporating deep breathing cat/cow Reps/Minutes 4' Comments cuing for ext at mid T/S keeping head in neutral Manual Therapy Treatment Soft Tissue Mobilization STM/MFR Body Location upper trap, posterior cervical reg, suboccipital release Mobilization Type Myofascial Release,Trigger Point Release Intensity/Depth Moderate Body Position Hooklying Manual Traction Cervical Reps/Duration 5 min Comments very gentle for muscle relaxation and pain management PT-OP-R Modalities Start: 10/04/18 08:08 Freq: Status: Active Protocol: Document 03/08/19 09:29 SAK (Rec: 03/12/19 11:52 SAK [id number]) Hot Pack/Cold Pack Treatment Cold Pack Location c/s Patient Position Hooklying Treatment Duration (minutes) 10 Patient Tolerance Good PT-OP-S Aquatic Treatment Start: 10/04/18 08:08 Freq: Status: Active Protocol: Document 10/14/18 10:15 LJ (Rec: 10/14/18 13:56 LJ [email or web address]) Aquatics Treatment Pool Entry/Exit Assistance Independent Water Walking straight leg march with straight UE's Water Level Neck Level Walking Equipment Resistance Fins Level of Assistance Verbal Cues Comments UE paddles sideways with shld ab/ad Water Level Neck Level Walking Equipment Resistance Fins Level of Assistance Verbal Cues Comments UE paddles Backward walking with reverse breastroke UE's Water Level Neck Level Walking Equipment Resistance Fins Level of Assistance Verbal Cues Comments UE paddles forward with breastroke UE's Water Level Neck Level Walking Equipment Resistance Fins Level of Assistance Verbal Cues Comments UE paddles Upper Extremity Exercises shld IR/ER Water Level Neck Level Reps/Duration 10x 2 Comments blue fins, green aqualogix bells shld circles Reps/Duration 10x2 Comments CW, CCW; fins and bells as above shld flex/ext Body Position Standing Water Level Chest Level Reps/Duration 10x Comments equipment as above hor ab/ad Water Level Neck Level Reps/Duration 10x2 Comments equipment as above Upper Extremity Stretches forward walking w/UE paddles Water Level Neck Level Equipment UE paddles Reps/Duration 30 M varying depths corner stretch Body Position Standing Water Level Chest Level Reps/Duration 2x Spinal Exercises cervical SB Body Position Standing Water Level Neck Level Reps/Duration 5x Comments painfree ROM cervical rotation Body Position Standing Equipment Neck Float Reps/Duration 5x Comments painfree ROM [place] Activities Other Activities bike, ski, abd/add, crossovers , v sit bike, pendulum, lateral pulldowns 10 sec increments Equipment flotation belt, med barbells Swim Strokes sidestroke Laps/Duration 15m Chi Chi Duration (Minutes) 5 PT-OP-T Assessment and Plan Start: 10/04/18 08:08 Freq: Status: Active Protocol: Document 04/04/19 13:30 GGD (Rec: 04/04/19 13:34 GGD [id number]) Physical Therapy Assessment Assessment Summary Assessment Pt is making slow progress. He needs cues for posture with strengthening exercise. Physical Therapy Plan Frequency and Duration Frequency of Treatment 2x/Week Duration of Treatment 6 weeks Plan of Care Start Date 03/09/19 Plan of Care End Date 04/21/19 Next Visit Focus/Plan Next Note Type Treatment Note Next Visit Plan Progress with therapeutic exercises, posture and body mechanics as pt tolerates.
--- NOTE | 2019-04-06 19:15 | PT.OTN ---
Current Diagnoses Arthrodesis status (04/06/19) Physical Therapy Treatment Note PT-OP-A Visit Information Start: 10/04/18 08:08 Freq: Status: Active Protocol: Document 04/06/19 09:05 (Rec: 04/06/19 19:15 HH [email or web address]) Out-Patient Physical Therapy Visit Information Visit Information Visit Type Treatment Note Visit Start Time 09:05 Visit Stop Time 09:46 Total Visit Minutes 41 Visit Number 31 Number of PAINTINGS CONSERVATOR Visits 0 PT-OP-B Current Condition Start: 10/04/18 08:08 Freq: Status: Active Protocol: Document 03/08/19 09:29 SAK (Rec: 03/08/19 09:47 SAK [id number]) Current Condition History of Current Condition Onset Date 06/28/18 Current Complaints neck pain, weakness, activity intolerance History of Current Condition Last seen for PT 01/20/19. Has been doing massage therapy, and has had chiropractic ordered. Going to TMJ specialist 03/29/19. Saw physician last week, recommended continue PT. Left sided numbness hand, lateral 3 fingers tingly more since last seen, pain persists not all the time, also burning sensation in ulnar nerve left. c/o occasional weakness right UE, beesting pain right UE with reaching behind his back. Has district attorney working with him with his L and I claim. Reports low back pain has been better. Wants land- based PT, will continue with aquatic-based PT at this time. Future Testing and Treatments Planned chiropractor, massage, TMJ specialist Treatment Goals Patient/Caregiver Goals pushing the boundaries, trying to increase what I'm able to do; reduce pain while driving, improve ROM and strength. Prior Functional Status Baseline Function- ADL's Independent Baseline Function- Mobility Independent Baseline Function- Gait indep Current Functional Impairments (Reported) Functional Limitations- ADL's see neck and shoulder disability index score PT-OP-C Subjective Start: 10/04/18 08:08 Freq: Status: Active Protocol: Document 04/06/19 09:05 HH (Rec: 04/06/19 19:15 HH [email or web address]) OP-PT Subjective Patient Comments Patient Comments I've having a flare up for the past 10 days and i couldnt sleep yesterday until today 7am. PT-OP-G Mobility & Gait Start: 10/04/18 08:08 Freq: Status: Active Protocol: Document 10/04/18 11:20 [facility] (Rec: 10/04/18 15:11 [facility] [id number]) OP Gait Assessment Gait Gait Assistance Required: Independent Factors Limiting Gait Function Factors Limiting Gait Function Pain Comments Gait Comments Able to ambulate household and short community distances, requires frequent rest due to back pain. PT-OP-J Posture/Palpation/Skin Start: 10/04/18 08:08 Freq: Status: Active Protocol: Document 03/08/19 09:29 [facility] (Rec: 03/12/19 11:52 [facility] [id number]) Posture Evaluation Position Sitting Head/C-Spine Posture Forward Head T-Spine Posture Increased Kyphosis Shoulder Posture (R) Rounded,(L) Forward Scapula Posture (L) Protracted,(R) Protracted Arm Posture (L) Internally Rotated,(R) Internally Rotated Skin Assessment Other Assessments Skin Assessment Comments skin intact PT-OP-K Range of Motion Start: 10/04/18 08:08 Freq: Status: Active Protocol: Document 03/08/19 09:29 [facility] (Rec: 03/12/19 11:52 [facility] [id number]) Cervical Spine Range of Motion Cervical Spine Active Testing Position Sitting Flexion 33 Extension 25 Rotation Left 36 Rotation Right 38 Lateral Flexion Left 20 Lateral Flexion Right 32 Comments patient reported pain with all cervical motions, worst with extension and left sidebending . Shoulder Goniometric Range of Motion Shoulder Left Testing Position Sitting Internal Rotation Behind Back (text) lateral hip Right Shoulder ROM WFL Yes Testing Position Sitting Shoulder ROM Limitations Comments WNL but with c/o shoulder and neck pain with flex and abd PT-OP-M Strength Start: 10/04/18 08:08 Freq: Status: Active Protocol: Document 03/08/19 09:29 [facility] (Rec: 03/12/19 11:52 [facility] [id number]) Cervical Spine Strength Cervical Spine Manual Muscle Testing Testing Position Sitting Flexion (C1-2) 4 Good Extension 4 Good Rotation Left 4 Good Rotation Right 4 Good Lateral Flexion Left (C3) 4 Good Lateral Flexion Right (C3) 4 Good Shoulder Strength Shoulder Manual Muscle Testing rupert Flexion 4 Good Extension 4 Good Abduction (C5) 4- Good- External Rotation 4 Good Internal Rotation 4+ Good+ Elbow/Forearm Strength Elbow and Forearm Manual Muscle Testing rupert Comments pain medial left elbow with resistance. elbow flex 4/5 right 4+/5 left, extension 4/5 right 4+/5 left Wrist Strength Wrist Manual Muscle Testing Left Flexion (C7) 4+ Good+ Extension (C6) 4+ Good+ Right Flexion (C7) 4 Good Extension (C6) 4 Good PT-OP-Q Treatments Start: 10/04/18 08:08 Freq: Status: Active Protocol: Document 04/06/19 09:05 HH (Rec: 04/06/19 19:15 HH [email or web address]) Cardio Equipment Recumbent Stepper (Sci-Fit) Duration (Minutes) 10 Resistance 3.5-4.0 Seat Position 13 Therapeutic Exercises Prone Exercises iso prone extension Side bilateral Reps/Minutes 8 s x 5 Sitting Exercises seated iso trunk ext, cervical ext Side bilateral Equipment Used manual resistance Reps/Minutes 10 secs x5 Manual Therapy Treatment Soft Tissue Mobilization STM/MFR Body Location upper trap, posterior cervical reg, suboccipital release Mobilization Type Myofascial Release,Trigger Point Release Intensity/Depth Moderate Body Position Hooklying Joint Mobilizations PA mob with C/S movements Grade II Manual Traction Cervical Reps/Duration 5 min Comments very gentle for muscle relaxation and pain management PT-OP-R Modalities Start: 10/04/18 08:08 Freq: Status: Active Protocol: Document 03/08/19 09:29 SAK (Rec: 03/12/19 11:52 SAK [id number]) Hot Pack/Cold Pack Treatment Cold Pack Location c/s Patient Position Hooklying Treatment Duration (minutes) 10 Patient Tolerance Good PT-OP-S Aquatic Treatment Start: 10/04/18 08:08 Freq: Status: Active Protocol: Document 10/14/18 10:15 LJ (Rec: 10/14/18 13:56 LJ [email or web address]) Aquatics Treatment Pool Entry/Exit Assistance Independent Water Walking straight leg march with straight UE's Water Level Neck Level Walking Equipment Resistance Fins Level of Assistance Verbal Cues Comments UE paddles sideways with shld ab/ad Water Level Neck Level Walking Equipment Resistance Fins Level of Assistance Verbal Cues Comments UE paddles Backward walking with reverse breastroke UE's Water Level Neck Level Walking Equipment Resistance Fins Level of Assistance Verbal Cues Comments UE paddles forward with breastroke UE's Water Level Neck Level Walking Equipment Resistance Fins Level of Assistance Verbal Cues Comments UE paddles Upper Extremity Exercises shld IR/ER Water Level Neck Level Reps/Duration 10x 2 Comments blue fins, green aqualogix bells shld circles Reps/Duration 10x2 Comments CW, CCW; fins and bells as above shld flex/ext Body Position Standing Water Level Chest Level Reps/Duration 10x Comments equipment as above hor ab/ad Water Level Neck Level Reps/Duration 10x2 Comments equipment as above Upper Extremity Stretches forward walking w/UE paddles Water Level Neck Level Equipment UE paddles Reps/Duration 30 M varying depths corner stretch Body Position Standing Water Level Chest Level Reps/Duration 2x Spinal Exercises cervical SB Body Position Standing Water Level Neck Level Reps/Duration 5x Comments painfree ROM cervical rotation Body Position Standing Equipment Neck Float Reps/Duration 5x Comments painfree ROM [place] Activities Other Activities bike, ski, abd/add, crossovers , v sit bike, pendulum, lateral pulldowns 10 sec increments Equipment flotation belt, med barbells Swim Strokes sidestroke Laps/Duration 15m Chi Chi Duration (Minutes) 5 PT-OP-T Assessment and Plan Start: 10/04/18 08:08 Freq: Status: Active Protocol: Document 04/06/19 09:05 (Rec: 04/06/19 19:15 [email or web address]) Physical Therapy Assessment Assessment Summary Assessment Pt has been c/o increased symptoms recently but do not know why. Focused on manual tx and neck stability ex today and pt az tx well. Physical Therapy Plan Next Visit Focus/Plan Next Note Type Treatment Note Next Visit Plan reassess pt's symptoms Progress with therapeutic exercises, posture and body mechanics as pt tolerates.
--- NOTE | 2019-04-10 12:10 | PT.OTN ---
Current Diagnoses Arthrodesis status (04/10/19) Physical Therapy Treatment Note PT-OP-A Visit Information Start: 10/04/18 08:08 Freq: Status: Active Protocol: Document 04/10/19 10:27 AW (Rec: 04/10/19 12:10 AW [email or web address]) Out-Patient Physical Therapy Visit Information Visit Information Visit Type Treatment Note Visit Start Time 09:46 Visit Stop Time 10:25 Total Visit Minutes 39 Visit Number 32 Number of OUTDOOR PURSUITS INSTRUCTOR Visits 0 Evaluation Information Evaluation Date 10/04/18 PT-OP-B Current Condition Start: 10/04/18 08:08 Freq: Status: Active Protocol: Document 03/08/19 09:29 SAK (Rec: 03/08/19 09:47 SAK [id number]) Current Condition History of Current Condition Onset Date 06/28/18 Current Complaints neck pain, weakness, activity intolerance History of Current Condition Last seen for PT 01/20/19. Has been doing massage therapy, and has had chiropractic ordered. Going to TMJ specialist 03/29/19. Saw physician last week, recommended continue PT. Left sided numbness hand, lateral 3 fingers tingly more since last seen, pain persists not all the time, also burning sensation in ulnar nerve left. c/o occasional weakness right UE, beesting pain right UE with reaching behind his back. Has civil litigation attorney working with him with his L and I claim. Reports low back pain has been better. Wants land- based PT, will continue with aquatic-based PT at this time. Future Testing and Treatments Planned chiropractor, massage, TMJ specialist Treatment Goals Patient/Caregiver Goals pushing the boundaries, trying to increase what I'm able to do; reduce pain while driving, improve ROM and strength. Prior Functional Status Baseline Function- ADL's Independent Baseline Function- Mobility Independent Baseline Function- Gait indep Current Functional Impairments (Reported) Functional Limitations- ADL's see neck and shoulder disability index score PT-OP-C Subjective Start: 10/04/18 08:08 Freq: Status: Active Protocol: Document 04/10/19 10:27 AW (Rec: 04/10/19 12:10 AW [email or web address]) OP-PT Subjective Patient Comments Patient Comments Pt is still not sleeping well. He reports no increase in symptoms since last visit, but does note the manual therapy may have been too intense because he felt more sore than usual after that visit. PT-OP-G Mobility & Gait Start: 10/04/18 08:08 Freq: Status: Active Protocol: Document 10/04/18 11:20 [facility] (Rec: 10/04/18 15:11 [facility] [id number]) OP Gait Assessment Gait Gait Assistance Required: Independent Factors Limiting Gait Function Factors Limiting Gait Function Pain Comments Gait Comments Able to ambulate household and short community distances, requires frequent rest due to back pain. PT-OP-J Posture/Palpation/Skin Start: 10/04/18 08:08 Freq: Status: Active Protocol: Document 03/08/19 09:29 [facility] (Rec: 03/12/19 11:52 [facility] [id number]) Posture Evaluation Position Sitting Head/C-Spine Posture Forward Head T-Spine Posture Increased Kyphosis Shoulder Posture (R) Rounded,(L) Forward Scapula Posture (L) Protracted,(R) Protracted Arm Posture (L) Internally Rotated,(R) Internally Rotated Skin Assessment Other Assessments Skin Assessment Comments skin intact PT-OP-K Range of Motion Start: 10/04/18 08:08 Freq: Status: Active Protocol: Document 03/08/19 09:29 [facility] (Rec: 03/12/19 11:52 [facility] [id number]) Cervical Spine Range of Motion Cervical Spine Active Testing Position Sitting Flexion 33 Extension 25 Rotation Left 36 Rotation Right 38 Lateral Flexion Left 20 Lateral Flexion Right 32 Comments patient reported pain with all cervical motions, worst with extension and left sidebending . Shoulder Goniometric Range of Motion Shoulder Left Testing Position Sitting Internal Rotation Behind Back (text) lateral hip Right Shoulder ROM WFL Yes Testing Position Sitting Shoulder ROM Limitations Comments WNL but with c/o shoulder and neck pain with flex and abd PT-OP-M Strength Start: 10/04/18 08:08 Freq: Status: Active Protocol: Document 03/08/19 09:29 [facility] (Rec: 03/12/19 11:52 [facility] [id number]) Cervical Spine Strength Cervical Spine Manual Muscle Testing Testing Position Sitting Flexion (C1-2) 4 Good Extension 4 Good Rotation Left 4 Good Rotation Right 4 Good Lateral Flexion Left (C3) 4 Good Lateral Flexion Right (C3) 4 Good Shoulder Strength Shoulder Manual Muscle Testing rupert Flexion 4 Good Extension 4 Good Abduction (C5) 4- Good- External Rotation 4 Good Internal Rotation 4+ Good+ Elbow/Forearm Strength Elbow and Forearm Manual Muscle Testing rupert Comments pain medial left elbow with resistance. elbow flex 4/5 right 4+/5 left, extension 4/5 right 4+/5 left Wrist Strength Wrist Manual Muscle Testing Left Flexion (C7) 4+ Good+ Extension (C6) 4+ Good+ Right Flexion (C7) 4 Good Extension (C6) 4 Good PT-OP-Q Treatments Start: 10/04/18 08:08 Freq: Status: Active Protocol: Document 04/10/19 10:27 AW (Rec: 04/10/19 12:10 AW [email or web address]) Cardio Equipment Recumbent Stepper (Sci-Fit) Duration (Minutes) 10 Resistance 3.5-4.0 Seat Position 13 Gym Equipment Cable Column (Body Solid) scapular depression Details scapular depression Resistance 50 Reps/Time 2x10 needing max cues to avoid shoulder elevation mid row Resistance 30 Reps/Time 2x15 Lat pull Resistance 30 Reps/Time 2x15 Therapeutic Exercises Supine Exercises serratus punch Supine Exercise Name serratus punch Side bilateral Resistance 4# Reps/Minutes 2x10 reps Prone Exercises thread the needle Prone Exercise Name quadruped position Side bilateral Reps/Minutes 2x10 reps Comments rotation both directions (arm through on mat and arm up twd ceiling) Manual Therapy Treatment Soft Tissue Mobilization STM/MFR Body Location upper trap, posterior cervical reg, suboccipital release Mobilization Type Myofascial Release,Trigger Point Release Intensity/Depth Superficial Body Position Hooklying Comments [place] duration this visit with less intensity for improved tolerance and less reactivity PT-OP-R Modalities Start: 10/04/18 08:08 Freq: Status: Active Protocol: Document 03/08/19 09:29 SAK (Rec: 03/12/19 11:52 SAK [id number]) Hot Pack/Cold Pack Treatment Cold Pack Location c/s Patient Position Hooklying Treatment Duration (minutes) 10 Patient Tolerance Good PT-OP-S Aquatic Treatment Start: 10/04/18 08:08 Freq: Status: Active Protocol: Document 10/14/18 10:15 LJ (Rec: 10/14/18 13:56 LJ [email or web address]) Aquatics Treatment Pool Entry/Exit Assistance Independent Water Walking straight leg march with straight UE's Water Level Neck Level Walking Equipment Resistance Fins Level of Assistance Verbal Cues Comments UE paddles sideways with shld ab/ad Water Level Neck Level Walking Equipment Resistance Fins Level of Assistance Verbal Cues Comments UE paddles Backward walking with reverse breastroke UE's Water Level Neck Level Walking Equipment Resistance Fins Level of Assistance Verbal Cues Comments UE paddles forward with breastroke UE's Water Level Neck Level Walking Equipment Resistance Fins Level of Assistance Verbal Cues Comments UE paddles Upper Extremity Exercises shld IR/ER Water Level Neck Level Reps/Duration 10x 2 Comments blue fins, green aqualogix bells shld circles Reps/Duration 10x2 Comments CW, CCW; fins and bells as above shld flex/ext Body Position Standing Water Level Chest Level Reps/Duration 10x Comments equipment as above hor ab/ad Water Level Neck Level Reps/Duration 10x2 Comments equipment as above Upper Extremity Stretches forward walking w/UE paddles Water Level Neck Level Equipment UE paddles Reps/Duration 30 M varying depths corner stretch Body Position Standing Water Level Chest Level Reps/Duration 2x Spinal Exercises cervical SB Body Position Standing Water Level Neck Level Reps/Duration 5x Comments painfree ROM cervical rotation Body Position Standing Equipment Neck Float Reps/Duration 5x Comments painfree ROM [place] Activities Other Activities bike, ski, abd/add, crossovers , v sit bike, pendulum, lateral pulldowns 10 sec increments Equipment flotation belt, med barbells Swim Strokes sidestroke Laps/Duration 15m Chi Chi Duration (Minutes) 5 PT-OP-T Assessment and Plan Start: 10/04/18 08:08 Freq: Status: Active Protocol: Document 04/10/19 10:27 AW (Rec: 04/10/19 12:10 AW [email or web address]) Physical Therapy Assessment Assessment Summary Assessment Pt has difficulty isolating scapular depression and retraction, making postural correction during exercise challenging. He is willing to try anything. Tolerated ther ex and gentle STM well today. Physical Therapy Plan Frequency and Duration Frequency of Treatment 2x/Week Duration of Treatment 6 weeks Plan of Care Start Date 03/09/19 Plan of Care End Date 04/21/19 Next Visit Focus/Plan Next Note Type Treatment Note Next Visit Plan Progress with therapeutic exercises, posture and body mechanics as pt tolerates.
--- NOTE | 2019-04-13 12:14 | PT.OTN ---
Current Diagnoses Arthrodesis status (04/13/19) Physical Therapy Treatment Note PT-OP-A Visit Information Start: 10/04/18 08:08 Freq: Status: Active Protocol: Document 04/13/19 09:02 (Rec: 04/13/19 12:14 HH [email or web address]) Out-Patient Physical Therapy Visit Information Visit Information Visit Type Treatment Note Visit Start Time 09:02 Visit Stop Time 09:47 Total Visit Minutes 45 Visit Number 33 Number of SUEDING MACHINE OPERATOR Visits 0 PT-OP-B Current Condition Start: 10/04/18 08:08 Freq: Status: Active Protocol: Document 03/08/19 09:29 SAK (Rec: 03/08/19 09:47 SAK [id number]) Current Condition History of Current Condition Onset Date 06/28/18 Current Complaints neck pain, weakness, activity intolerance History of Current Condition Last seen for PT 01/20/19. Has been doing massage therapy, and has had chiropractic ordered. Going to TMJ specialist 03/29/19. Saw physician last week, recommended continue PT. Left sided numbness hand, lateral 3 fingers tingly more since last seen, pain persists not all the time, also burning sensation in ulnar nerve left. c/o occasional weakness right UE, beesting pain right UE with reaching behind his back. Has managing attorney working with him with his L and I claim. Reports low back pain has been better. Wants land- based PT, will continue with aquatic-based PT at this time. Future Testing and Treatments Planned chiropractor, massage, TMJ specialist Treatment Goals Patient/Caregiver Goals pushing the boundaries, trying to increase what I'm able to do; reduce pain while driving, improve ROM and strength. Prior Functional Status Baseline Function- ADL's Independent Baseline Function- Mobility Independent Baseline Function- Gait indep Current Functional Impairments (Reported) Functional Limitations- ADL's see neck and shoulder disability index score PT-OP-C Subjective Start: 10/04/18 08:08 Freq: Status: Active Protocol: Document 04/13/19 09:02 HH (Rec: 04/13/19 12:14 HH [email or web address]) OP-PT Subjective Patient Comments Patient Comments Pt slept quite well last night . But he had this numbness sensation down to his L hand this morning. PT-OP-G Mobility & Gait Start: 10/04/18 08:08 Freq: Status: Active Protocol: Document 10/04/18 11:20 [facility] (Rec: 10/04/18 15:11 [facility] [id number]) OP Gait Assessment Gait Gait Assistance Required: Independent Factors Limiting Gait Function Factors Limiting Gait Function Pain Comments Gait Comments Able to ambulate household and short community distances, requires frequent rest due to back pain. PT-OP-J Posture/Palpation/Skin Start: 10/04/18 08:08 Freq: Status: Active Protocol: Document 03/08/19 09:29 [facility] (Rec: 03/12/19 11:52 [facility] [id number]) Posture Evaluation Position Sitting Head/C-Spine Posture Forward Head T-Spine Posture Increased Kyphosis Shoulder Posture (R) Rounded,(L) Forward Scapula Posture (L) Protracted,(R) Protracted Arm Posture (L) Internally Rotated,(R) Internally Rotated Skin Assessment Other Assessments Skin Assessment Comments skin intact PT-OP-K Range of Motion Start: 10/04/18 08:08 Freq: Status: Active Protocol: Document 03/08/19 09:29 [facility] (Rec: 03/12/19 11:52 [facility] [id number]) Cervical Spine Range of Motion Cervical Spine Active Testing Position Sitting Flexion 33 Extension 25 Rotation Left 36 Rotation Right 38 Lateral Flexion Left 20 Lateral Flexion Right 32 Comments patient reported pain with all cervical motions, worst with extension and left sidebending . Shoulder Goniometric Range of Motion Shoulder Left Testing Position Sitting Internal Rotation Behind Back (text) lateral hip Right Shoulder ROM WFL Yes Testing Position Sitting Shoulder ROM Limitations Comments WNL but with c/o shoulder and neck pain with flex and abd PT-OP-M Strength Start: 10/04/18 08:08 Freq: Status: Active Protocol: Document 03/08/19 09:29 [facility] (Rec: 03/12/19 11:52 [facility] [id number]) Cervical Spine Strength Cervical Spine Manual Muscle Testing Testing Position Sitting Flexion (C1-2) 4 Good Extension 4 Good Rotation Left 4 Good Rotation Right 4 Good Lateral Flexion Left (C3) 4 Good Lateral Flexion Right (C3) 4 Good Shoulder Strength Shoulder Manual Muscle Testing rupert Flexion 4 Good Extension 4 Good Abduction (C5) 4- Good- External Rotation 4 Good Internal Rotation 4+ Good+ Elbow/Forearm Strength Elbow and Forearm Manual Muscle Testing rupert Comments pain medial left elbow with resistance. elbow flex 4/5 right 4+/5 left, extension 4/5 right 4+/5 left Wrist Strength Wrist Manual Muscle Testing Left Flexion (C7) 4+ Good+ Extension (C6) 4+ Good+ Right Flexion (C7) 4 Good Extension (C6) 4 Good PT-OP-Q Treatments Start: 10/04/18 08:08 Freq: Status: Active Protocol: Document 04/13/19 09:02 HH (Rec: 04/13/19 12:14 HH [email or web address]) Cardio Equipment Recumbent Stepper (Sci-Fit) Duration (Minutes) 10 Resistance 3.5-4.0 Seat Position 13 Gym Equipment Cable Column (Body Solid) scapular depression Details scapular depression Resistance 50 Reps/Time 2x10 needing max cues to avoid shoulder elevation mid row Resistance 30 Reps/Time 2x15 Lat pull Resistance 30 Reps/Time 2x15 Therapeutic Exercises Sitting Exercises seated iso trunk ext, cervical ext Side bilateral Equipment Used manual resistance Reps/Minutes 10 secs x5 Standing Exercises hip hinge arm lift Standing Exercise Name shoulder Ys Reps/Minutes 8 x2 Comments cues on neutral spine wall jovita Side bilateral Reps/Minutes 8 x2 Comments cues on scap and cervical retracion shoulder shrug Side bilateral Equipment Used bar behind back Reps/Minutes 12 x 2 Comments full shrug and depression sh ext Side bilateral Equipment Used bar behind back Reps/Minutes 12 x2 Comments scap retraction and ext Manual Therapy Treatment Soft Tissue Mobilization STM/MFR Body Location upper trap, posterior cervical reg, suboccipital release Mobilization Type Myofascial Release,Trigger Point Release Intensity/Depth Superficial Body Position Sitting Comments Pierson duration this visit with less intensity for improved tolerance and less reactivity PT-OP-R Modalities Start: 10/04/18 08:08 Freq: Status: Active Protocol: Document 03/08/19 09:29 SAK (Rec: 03/12/19 11:52 SAK [id number]) Hot Pack/Cold Pack Treatment Cold Pack Location c/s Patient Position Hooklying Treatment Duration (minutes) 10 Patient Tolerance Good PT-OP-S Aquatic Treatment Start: 10/04/18 08:08 Freq: Status: Active Protocol: Document 10/14/18 10:15 LJ (Rec: 10/14/18 13:56 LJ [email or web address]) Aquatics Treatment Pool Entry/Exit Assistance Independent Water Walking straight leg march with straight UE's Water Level Neck Level Walking Equipment Resistance Fins Level of Assistance Verbal Cues Comments UE paddles sideways with shld ab/ad Water Level Neck Level Walking Equipment Resistance Fins Level of Assistance Verbal Cues Comments UE paddles Backward walking with reverse breastroke UE's Water Level Neck Level Walking Equipment Resistance Fins Level of Assistance Verbal Cues Comments UE paddles forward with breastroke UE's Water Level Neck Level Walking Equipment Resistance Fins Level of Assistance Verbal Cues Comments UE paddles Upper Extremity Exercises shld IR/ER Water Level Neck Level Reps/Duration 10x 2 Comments blue fins, green aqualogix bells shld circles Reps/Duration 10x2 Comments CW, CCW; fins and bells as above shld flex/ext Body Position Standing Water Level Chest Level Reps/Duration 10x Comments equipment as above hor ab/ad Water Level Neck Level Reps/Duration 10x2 Comments equipment as above Upper Extremity Stretches forward walking w/UE paddles Water Level Neck Level Equipment UE paddles Reps/Duration 30 M varying depths corner stretch Body Position Standing Water Level Chest Level Reps/Duration 2x Spinal Exercises cervical SB Body Position Standing Water Level Neck Level Reps/Duration 5x Comments painfree ROM cervical rotation Body Position Standing Equipment Neck Float Reps/Duration 5x Comments painfree ROM Bedrock Activities Other Activities bike, ski, abd/add, crossovers , v sit bike, pendulum, lateral pulldowns 10 sec increments Equipment flotation belt, med barbells Swim Strokes sidestroke Laps/Duration 15m Chi Chi Duration (Minutes) 5 PT-OP-T Assessment and Plan Start: 10/04/18 08:08 Freq: Status: Active Protocol: Document 04/13/19 09:02 (Rec: 04/13/19 12:14 [email or web address]) Physical Therapy Assessment Assessment Summary Assessment Improved scap depression. Pt still has weakness on scapular and shd movements. He tends to shake often while scap row and lat pull down. Physical Therapy Plan Next Visit Focus/Plan Next Note Type Treatment Note Next Visit Plan Progress with therapeutic exercises, posture and body mechanics as pt tolerates.
--- NOTE | 2019-04-17 18:06 | PT.OTN ---
Current Diagnoses Arthrodesis status (04/17/19) Physical Therapy Treatment Note PT-OP-A Visit Information Start: 10/04/18 08:08 Freq: Status: Active Protocol: Document 04/17/19 17:50 AW (Rec: 04/17/19 18:06 AW [email or web address]) Out-Patient Physical Therapy Visit Information Visit Information Visit Type Treatment Note Visit Start Time 09:45 Visit Stop Time 10:26 Total Visit Minutes 41 Visit Number 34 Number of TECHNOLOGY MANAGER Visits 0 PT-OP-B Current Condition Start: 10/04/18 08:08 Freq: Status: Active Protocol: Document 03/08/19 09:29 SAK (Rec: 03/08/19 09:47 SAK [id number]) Current Condition History of Current Condition Onset Date 06/28/18 Current Complaints neck pain, weakness, activity intolerance History of Current Condition Last seen for PT 01/20/19. Has been doing massage therapy, and has had chiropractic ordered. Going to TMJ specialist 03/29/19. Saw physician last week, recommended continue PT. Left sided numbness hand, lateral 3 fingers tingly more since last seen, pain persists not all the time, also burning sensation in ulnar nerve left. c/o occasional weakness right UE, beesting pain right UE with reaching behind his back. 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 Reports low back pain has been better. Wants land- based PT, will continue with aquatic-based PT at this time. Future Testing and Treatments Planned chiropractor, massage, TMJ specialist Treatment Goals Patient/Caregiver Goals pushing the boundaries, trying to increase what I'm able to do; reduce pain while driving, improve ROM and strength. Prior Functional Status Baseline Function- ADL's Independent Baseline Function- Mobility Independent Baseline Function- Gait indep Current Functional Impairments (Reported) Functional Limitations- ADL's see neck and shoulder disability index score PT-OP-C Subjective Start: 10/04/18 08:08 Freq: Status: Active Protocol: Document 04/17/19 17:50 AW (Rec: 04/17/19 18:06 AW [email or web address]) OP-PT Subjective Patient Comments Patient Comments Drove to a baseball game over the weekend and had increased pain from driving. Pt stumbled last night and hit his 4th digit left foot. He has pain and tingling in that digit now , but says he will not seek medical care. PT-OP-G Mobility & Gait Start: 10/04/18 08:08 Freq: Status: Active Protocol: Document 10/04/18 11:20 [facility] (Rec: 10/04/18 15:11 [facility] [id number]) OP Gait Assessment Gait Gait Assistance Required: Independent Factors Limiting Gait Function Factors Limiting Gait Function Pain Comments Gait Comments Able to ambulate household and short community distances, requires frequent rest due to back pain. PT-OP-J Posture/Palpation/Skin Start: 10/04/18 08:08 Freq: Status: Active Protocol: Document 03/08/19 09:29 [facility] (Rec: 03/12/19 11:52 [facility] [id number]) Posture Evaluation Position Sitting Head/C-Spine Posture Forward Head T-Spine Posture Increased Kyphosis Shoulder Posture (R) Rounded,(L) Forward Scapula Posture (L) Protracted,(R) Protracted Arm Posture (L) Internally Rotated,(R) Internally Rotated Skin Assessment Other Assessments Skin Assessment Comments skin intact PT-OP-K Range of Motion Start: 10/04/18 08:08 Freq: Status: Active Protocol: Document 03/08/19 09:29 [facility] (Rec: 03/12/19 11:52 [facility] [id number]) Cervical Spine Range of Motion Cervical Spine Active Testing Position Sitting Flexion 33 Extension 25 Rotation Left 36 Rotation Right 38 Lateral Flexion Left 20 Lateral Flexion Right 32 Comments patient reported pain with all cervical motions, worst with extension and left sidebending . Shoulder Goniometric Range of Motion Shoulder Left Testing Position Sitting Internal Rotation Behind Back (text) lateral hip Right Shoulder ROM WFL Yes Testing Position Sitting Shoulder ROM Limitations Comments WNL but with c/o shoulder and neck pain with flex and abd PT-OP-M Strength Start: 10/04/18 08:08 Freq: Status: Active Protocol: Document 03/08/19 09:29 [facility] (Rec: 03/12/19 11:52 [facility] [id number]) Cervical Spine Strength Cervical Spine Manual Muscle Testing Testing Position Sitting Flexion (C1-2) 4 Good Extension 4 Good Rotation Left 4 Good Rotation Right 4 Good Lateral Flexion Left (C3) 4 Good Lateral Flexion Right (C3) 4 Good Shoulder Strength Shoulder Manual Muscle Testing rupert Flexion 4 Good Extension 4 Good Abduction (C5) 4- Good- External Rotation 4 Good Internal Rotation 4+ Good+ Elbow/Forearm Strength Elbow and Forearm Manual Muscle Testing rupert Comments pain medial left elbow with resistance. elbow flex 4/5 right 4+/5 left, extension 4/5 right 4+/5 left Wrist Strength Wrist Manual Muscle Testing Left Flexion (C7) 4+ Good+ Extension (C6) 4+ Good+ Right Flexion (C7) 4 Good Extension (C6) 4 Good PT-OP-Q Treatments Start: 10/04/18 08:08 Freq: Status: Active Protocol: Document 04/17/19 17:50 AW (Rec: 04/17/19 18:06 AW [email or web address]) Cardio Equipment Recumbent Stepper (Sci-Fit) Duration (Minutes) 10 Resistance 3.5-4.0 Seat Position 13 Gym Equipment Cable Column (Body Solid) scapular depression Details scapular depression Resistance 50 Reps/Time 2x10 needing mod cues to avoid shoulder elevation mid row Details mid row Resistance 30 Reps/Time 2x15 Lat pull Details lat pull Resistance 30 Reps/Time 2x15 Therapeutic Exercises Standing Exercises thoracic extension Standing Exercise Name thoracic extension Side bilateral Equipment Used against wall Reps/Minutes 2x10 reps Comments used prior to hip hinge with shoulder Y to encourage extension hip hinge arm lift Standing Exercise Name hip hinge with shoulder Y's Reps/Minutes 2x10 Comments preceded by thoracic ext with wall as cue Scapular Rows Standing Exercise Name rows Side bilateral Resistance level 3 TB Reps/Minutes 2x15 reps Comments 3 second hold, cues to maintain retraction Manual Therapy Treatment Soft Tissue Mobilization STM/MFR Body Location upper trap, posterior cervical reg, suboccipital release Mobilization Type Myofascial Release,Trigger Point Release Intensity/Depth Moderate Body Position Hooklying Comments Improved tolerance this visit PT-OP-R Modalities Start: 10/04/18 08:08 Freq: Status: Active Protocol: Document 03/08/19 09:29 SAK (Rec: 03/12/19 11:52 SAK [id number]) Hot Pack/Cold Pack Treatment Cold Pack Location c/s Patient Position Hooklying Treatment Duration (minutes) 10 Patient Tolerance Good PT-OP-S Aquatic Treatment Start: 10/04/18 08:08 Freq: Status: Active Protocol: Document 10/14/18 10:15 LJ (Rec: 10/14/18 13:56 LJ [email or web address]) Aquatics Treatment Pool Entry/Exit Assistance Independent Water Walking straight leg march with straight UE's Water Level Neck Level Walking Equipment Resistance Fins Level of Assistance Verbal Cues Comments UE paddles sideways with shld ab/ad Water Level Neck Level Walking Equipment Resistance Fins Level of Assistance Verbal Cues Comments UE paddles Backward walking with reverse breastroke UE's Water Level Neck Level Walking Equipment Resistance Fins Level of Assistance Verbal Cues Comments UE paddles forward with breastroke UE's Water Level Neck Level Walking Equipment Resistance Fins Level of Assistance Verbal Cues Comments UE paddles Upper Extremity Exercises shld IR/ER Water Level Neck Level Reps/Duration 10x 2 Comments blue fins, green aqualogix bells shld circles Reps/Duration 10x2 Comments CW, CCW; fins and bells as above shld flex/ext Body Position Standing Water Level Chest Level Reps/Duration 10x Comments equipment as above hor ab/ad Water Level Neck Level Reps/Duration 10x2 Comments equipment as above Upper Extremity Stretches forward walking w/UE paddles Water Level Neck Level Equipment UE paddles Reps/Duration 30 M varying depths corner stretch Body Position Standing Water Level Chest Level Reps/Duration 2x Spinal Exercises cervical SB Body Position Standing Water Level Neck Level Reps/Duration 5x Comments painfree ROM cervical rotation Body Position Standing Equipment Neck Float Reps/Duration 5x Comments painfree ROM [place]s Activities Other Activities bike, ski, abd/add, crossovers , v sit bike, pendulum, lateral pulldowns 10 sec increments Equipment flotation belt, med barbells Swim Strokes sidestroke Laps/Duration 15m Chi Chi Duration (Minutes) 5 PT-OP-T Assessment and Plan Start: 10/04/18 08:08 Freq: Status: Active Protocol: Document 04/17/19 17:50 AW (Rec: 04/17/19 18:06 AW [email or web address]) Physical Therapy Assessment Assessment Summary Assessment Pt improving in postural awareness, evidenced by decreased kyphosis in hip hinge exercise. Physical Therapy Plan Frequency and Duration Frequency of Treatment 2x/Week Duration of Treatment 6 weeks Plan of Care Start Date 03/09/19 Plan of Care End Date 04/21/19 Next Visit Focus/Plan Next Note Type Treatment Note Next Visit Plan Progress with therapeutic exercises, posture and body mechanics as pt tolerates. Review HEP for possible discharge
--- NOTE | 2019-04-19 19:43 | PT.OTRE ---
Current Diagnoses Arthrodesis status (04/19/19) Visit Care Team Role Provider Type MERRY Alvarenga Attending Provider Non-Staff Primary Care Provider Specialty: Family Practice Address: [address] [place] [address], [address], [place], [address] Email: Physical Therapy Re-Evaluation PT-OP-A Visit Information Start: 10/04/18 08:08 Freq: Status: Active Protocol: Document 04/19/19 09:00 [facility]AK (Rec: 04/19/19 19:42 [facility]AK [id number]) Out-Patient Physical Therapy Visit Information Visit Information Visit Type Re-Evaluation Visit Start Time 09:00 Visit Stop Time 09:45 Total Visit Minutes 45 Visit Number 35 Number of SHEEP CLIPPER Visits 0 Evaluation Information Evaluation Date 10/04/18 PT-OP-B Current Condition Start: 10/04/18 08:08 Freq: Status: Active Protocol: Document 03/08/19 09:29 SAK (Rec: 03/08/19 09:47 SAK [id number]) Current Condition History of Current Condition Onset Date 06/28/18 Current Complaints neck pain, weakness, activity intolerance History of Current Condition Last seen for PT 01/20/19. Has been doing massage therapy, and has had chiropractic ordered. Going to TMJ specialist 03/29/19. Saw physician last week, recommended continue PT. Left sided numbness hand, lateral 3 fingers tingly more since last seen, pain persists not all the time, also burning sensation in ulnar nerve left. c/o occasional weakness right UE, beesting pain right UE with reaching behind his back. 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 Reports low back pain has been better. Wants land- based PT, will continue with aquatic-based PT at this time. Future Testing and Treatments Planned chiropractor, massage, TMJ specialist Treatment Goals Patient/Caregiver Goals pushing the boundaries, trying to increase what I'm able to do; reduce pain while driving, improve ROM and strength. Prior Functional Status Baseline Function- ADL's Independent Baseline Function- Mobility Independent Baseline Function- Gait indep Current Functional Impairments (Reported) Functional Limitations- ADL's see neck and shoulder disability index score PT-OP-C Subjective Start: 10/04/18 08:08 Freq: Status: Active Protocol: Document 04/19/19 09:00 [facility] (Rec: 04/19/19 09:45 [facility] [id number]) OP-PT Subjective Patient Comments Patient Comments Able to do more with less time for recovery, pain less. States LBP rare. Neck still giving fair bit of problems; he reports problems ever since MAHNAZ eval with excessive stretch of neck by physician. Uses ice at home and is doing HEP. Reports poor sleep due to neck pain. Having medical surgery for ED 04/24/19 related to prior claim; will have to hold PT for 6 wks before resuming. PT-OP-G Mobility & Gait Start: 10/04/18 08:08 Freq: Status: Active Protocol: Document 10/04/18 11:20 [facility] (Rec: 10/04/18 15:11 [facility] [id number]) OP Gait Assessment Gait Gait Assistance Required: Independent Factors Limiting Gait Function Factors Limiting Gait Function Pain Comments Gait Comments Able to ambulate household and short community distances, requires frequent rest due to back pain. PT-OP-J Posture/Palpation/Skin Start: 10/04/18 08:08 Freq: Status: Active Protocol: Document 04/19/19 09:00 [facility] (Rec: 04/19/19 19:43 [facility] [id number]) Posture Evaluation Position Sitting Head/C-Spine Posture Forward Head T-Spine Posture Increased Kyphosis Shoulder Posture (R) Rounded,(L) Forward Scapula Posture (L) Protracted,(R) Protracted Arm Posture (L) Internally Rotated,(R) Internally Rotated PT-OP-K Range of Motion Start: 10/04/18 08:08 Freq: Status: Active Protocol: Document 04/19/19 09:00 [facility] (Rec: 04/19/19 19:42 [facility] [id number]) Cervical Spine Range of Motion Cervical Spine Active Testing Position Sitting Flexion 41 Extension 22 Rotation Left 48 Rotation Right 42 Lateral Flexion Left 22 Lateral Flexion Right 25 Comments patient reported pain with all cervical motions, worst with extension and left sidebending . PT-OP-M Strength Start: 10/04/18 08:08 Freq: Status: Active Protocol: Document 04/19/19 09:00 [facility] (Rec: 04/19/19 19:42 [facility] [id number]) Cervical Spine Strength Cervical Spine Manual Muscle Testing Testing Position Sitting Flexion (C1-2) 4 Good Extension 4 Good Rotation Left 4 Good Rotation Right 4 Good Lateral Flexion Left (C3) 4 Good Lateral Flexion Right (C3) 4 Good Reason Not Measured Orthopedic Precautions,Pain Scapula Strength Scapula Manual Muscle Testing rupert Elevation (C4) 4+ Good+ Adduction 4+ Good+ Abduction 4+ Good+ Depression 4+ Good+ Shoulder Strength Shoulder Manual Muscle Testing rupert Flexion 4+ Good+ Extension 4+ Good+ Abduction (C5) 4+ Good+ External Rotation 4+ Good+ Internal Rotation 4+ Good+ Reason Not Measured Orthopedic Precautions Elbow/Forearm Strength Elbow and Forearm Manual Muscle Testing rupert Flexion (C6) 5 Normal Extension (C7) 5 Normal Comments pain medial left elbow with resistance. elbow flex 4/5 right 4+/5 left, extension 4/5 right 4+/5 left Wrist Strength Wrist Manual Muscle Testing Left Flexion (C7) 4+ Good+ Extension (C6) 4+ Good+ Right Flexion (C7) 4 Good Extension (C6) 4 Good PT-OP-Q Treatments Start: 10/04/18 08:08 Freq: Status: Active Protocol: Document 04/19/19 09:00 [facility] (Rec: 04/19/19 09:45 [facility] [id number]) Cardio Equipment Recumbent Stepper (Sci-Fit) Duration (Minutes) 10 Resistance 3.5-4.0 Seat Position 13 Therapeutic Exercises Sitting Exercises seated iso trunk ext, cervical ext Side bilateral Equipment Used rolled towel at back of head Reps/Minutes 5 secs x5 Standing Exercises wall jovita Side bilateral Reps/Minutes 8 x2 Comments cues on scap and cervical retracion wall posture with ER Standing Exercise Name wall posture with ER Scapular Rows Standing Exercise Name rows Side bilateral Resistance level 3 TB Reps/Minutes 2x15 reps Comments 3 second hold, cues to maintain retraction Manual Therapy Treatment Soft Tissue Mobilization STM/MFR Body Location upper trap, posterior cervical , upper and mid thoracic and periscapular reg Mobilization Type Myofascial Release,Trigger Point Release Intensity/Depth Moderate Body Position Prone Comments prone pillow Other Other Manual Treatments ROM and strength assessment PT-OP-R Modalities Start: 10/04/18 08:08 Freq: Status: Active Protocol: Document 03/08/19 09:29 [facility] (Rec: 03/12/19 11:52 [facility] [id number]) Hot Pack/Cold Pack Treatment Cold Pack Location c/s Patient Position Hooklying Treatment Duration (minutes) 10 Patient Tolerance Good PT-OP-T Assessment and Plan Start: 10/04/18 08:08 Freq: Status: Active Protocol: Document 04/19/19 09:00 [facility] (Rec: 04/19/19 09:45 [facility] [id number]) Physical Therapy Assessment Goals 5 Impairment postural dysfunction Short Term Goal (STG) Patient to be instructed in neutral postural alignment and body mechancis 11/03/18: achieved STG Duration goal met [facility] Goal (LTG) Patient to demonstrate good understanding of posture and body mechanics principles for neck protection and optimal function in the home with ADL' s and with usual activities. 11/03/18: good progress 12/06/18: mostly met, will need instruction in more physically challenging tasks 01/06/19 Intermittent cuing in challening positions 03/08/19 Continues intermittant cues with challenging positions or activities (only seen for PT 2x since last assesssed) 04/19/19 overall improvement noted, though hinging at C56 with excess kyphosis upper and mid thoracic spine remain issues for patient. Is now able to tolerate using a foam roller for assist with postural correction. With wall posture exercises kyphosis prevents him from touching back of head to wall. LTG Duration 06/19/19 4 Impairment ROM and strength impairments in neck and shoulders Short Term Goal (STG) Instruct patient in aquatic exercise program and HEP 11/03/18: completed instruction in aquatic exercise program and patient compliant. Continue to progress HEP. STG Duration goal met Public Health Nurse Goal (LTG) Patient will be independent with HEP and community-based exercise program 12/06/18: continue to progress patients ex program with good tolerance 01/06/19 continuing to progress his HEP 03/08/19: HEP needs further modification and progression 04/19/19: has been able to progress with HEP, ready to add prone exercises LTG Duration 06/19/19 3 Impairment activity tolerance Short Term Goal (STG) Patient able to tolerate 45 min aquatic exercise program without an increase in pain for purposes of long-term pain management and fitness 11/03/18: goal met STG Duration goal met Public Health Nurse Goal (LTG) Patient will be able to tolerate 45 min land-based exercise session with emphasis on postural correction, ROM, and strengthening without an increase in pain for purposes of long-term fitness and pain managment 01/06/19 Mild increased pain with exercises but he can manage the pain at home, improved recovery time reported 03/08/19: good goal progress 04/19/19: patient reports decrease in recovery time, inconsistent with how he feels after PT or HEP LTG Duration 06/19/19 2 Impairment Neck disability index score 56 % Short Term Goal (STG) Decrease disability index score to no greater than 35% 11/03/18: goal progress 12/06/18: 36%. 01/06/19: 52% 03/08/19 44% STG Duration 6 wks [facility] Goal (LTG) Decrease disability index score to no greater than 20% 12/06/18: good goal progress 03/08/19: 44% 04/19/19: despite reporting improvement, score of 56% on neck disability index scorfe today LTG Duration 06/19/19 1 Impairment neck pain Public Health Nurse Goal (LTG) Pain no greater than 2/10 with usual activities 01/06/19: minimal progress, managing pain better at home 03/08/19: remains 4-6/10 04/19/19: neck pain reported decreased today at 3-5/10. LTG Duration 06/19/19 Assessment Summary Assessment Patient needs cues for consistent postural correction , would benefit from further PT to address above goals as not able to be fully achieved yet. Has continued to tolerate progression of his home exercise program and is performing aquatic exercises independently. Will be having surgery 04/24/19 for medical issue and will let us know when he is able to resume PT. Physical Therapy Plan Frequency and Duration Frequency of Treatment 2x/Week Duration of Treatment 6 weeks Plan of Care Start Date 04/19/19 Plan of Care End Date 06/19/19 Next Visit Focus/Plan Next Note Type Treatment Note Next Visit Plan Continue to progress with land -based therapeutic exercises for strengthening, ROM, postural correction, and pain management. As above, patient to be on hold for PT due to medical surgery; plan to resume PT when cleared by physician.
--- NOTE | 2019-06-19 13:56 | PT.OPDS ---
Current Diagnoses Arthrodesis status (04/19/19) Visit Care Team Role Provider Type MRERY Alvarenga Attending Provider Non-Staff Primary Care Provider Specialty: Family Practice Address: [address] [place] [address], [address], [place], [address] Email: Visit Number Visit Number 35 Discharge Summary PT-OP-B Current Condition Start: 10/04/18 08:08 Freq: Status: Active Protocol: Document 03/08/19 09:29 SAK (Rec: 03/08/19 09:47 [facility]AK [id number]) Current Condition History of Current Condition Onset Date 06/28/18 Current Complaints neck pain, weakness, activity intolerance History of Current Condition Last seen for PT 01/20/19. Has been doing massage therapy, and has had chiropractic ordered. Going to TMJ specialist 03/29/19. Saw physician last week, recommended continue PT. Left sided numbness hand, lateral 3 fingers tingly more since last seen, pain persists not all the time, also burning sensation in ulnar nerve left. c/o occasional weakness right UE, beesting pain right UE with reaching behind his back. Has assistant attorney general working with him with his L and I claim. Reports low back pain has been better. Wants land- based PT, will continue with aquatic-based PT at this time. Future Testing and Treatments Planned chiropractor, massage, TMJ specialist Treatment Goals Patient/Caregiver Goals pushing the boundaries, trying to increase what I'm able to do; reduce pain while driving, improve ROM and strength. Prior Functional Status Baseline Function- ADL's Independent Baseline Function- Mobility Independent Baseline Function- Gait indep Current Functional Impairments (Reported) Functional Limitations- ADL's see neck and shoulder disability index score PT-OP-C Subjective Start: 10/04/18 08:08 Freq: Status: Active Protocol: Document 04/19/19 09:00 SAK (Rec: 04/19/19 09:45 SAK [id number]) OP-PT Subjective Patient Comments Patient Comments Able to do more with less time for recovery, pain less. States LBP rare. Neck still giving fair bit of problems; he reports problems ever since MAHNAZ eval with excessive stretch of neck by physician. Uses ice at home and is doing HEP. Reports poor sleep due to neck pain. Having medical surgery for ED 04/24/19 related to prior claim; will have to hold PT for 6 wks before resuming. PT-OP-G Mobility & Gait Start: 10/04/18 08:08 Freq: Status: Active Protocol: Document 10/04/18 11:20 [facility] (Rec: 10/04/18 15:11 [facility] [id number]) OP Gait Assessment Gait Gait Assistance Required: Independent Factors Limiting Gait Function Factors Limiting Gait Function Pain Comments Gait Comments Able to ambulate household and short community distances, requires frequent rest due to back pain. PT-OP-J Posture/Palpation/Skin Start: 10/04/18 08:08 Freq: Status: Active Protocol: Document 04/19/19 09:00 [facility] (Rec: 04/19/19 19:43 [facility] [id number]) Posture Evaluation Position Sitting Head/C-Spine Posture Forward Head T-Spine Posture Increased Kyphosis Shoulder Posture (R) Rounded,(L) Forward Scapula Posture (L) Protracted,(R) Protracted Arm Posture (L) Internally Rotated,(R) Internally Rotated PT-OP-K Range of Motion Start: 10/04/18 08:08 Freq: Status: Active Protocol: Document 04/19/19 09:00 [facility] (Rec: 04/19/19 19:42 [facility] [id number]) Cervical Spine Range of Motion Cervical Spine Active Testing Position Sitting Flexion 41 Extension 22 Rotation Left 48 Rotation Right 42 Lateral Flexion Left 22 Lateral Flexion Right 25 Comments patient reported pain with all cervical motions, worst with extension and left sidebending . PT-OP-M Strength Start: 10/04/18 08:08 Freq: Status: Active Protocol: Document 04/19/19 09:00 [facility] (Rec: 04/19/19 19:42 [facility] [id number]) Cervical Spine Strength Cervical Spine Manual Muscle Testing Testing Position Sitting Flexion (C1-2) 4 Good Extension 4 Good Rotation Left 4 Good Rotation Right 4 Good Lateral Flexion Left (C3) 4 Good Lateral Flexion Right (C3) 4 Good Reason Not Measured Orthopedic Precautions,Pain Scapula Strength Scapula Manual Muscle Testing rupert Elevation (C4) 4+ Good+ Adduction 4+ Good+ Abduction 4+ Good+ Depression 4+ Good+ Shoulder Strength Shoulder Manual Muscle Testing rupert Flexion 4+ Good+ Extension 4+ Good+ Abduction (C5) 4+ Good+ External Rotation 4+ Good+ Internal Rotation 4+ Good+ Reason Not Measured Orthopedic Precautions Elbow/Forearm Strength Elbow and Forearm Manual Muscle Testing rupert Flexion (C6) 5 Normal Extension (C7) 5 Normal Comments pain medial left elbow with resistance. elbow flex 4/5 right 4+/5 left, extension 4/5 right 4+/5 left Wrist Strength Wrist Manual Muscle Testing Left Flexion (C7) 4+ Good+ Extension (C6) 4+ Good+ Right Flexion (C7) 4 Good Extension (C6) 4 Good PT-OP-T Assessment and Plan Start: 10/04/18 08:08 Freq: Status: Active Protocol: Document 06/19/19 13:54 [facility] (Rec: 06/19/19 13:55 [facility] [id number]) Physical Therapy Assessment Assessment Summary Assessment Patient making good progress toward all goals. Further PT visits wee denied so he plans to continue with HEP and aquatic exercise program as instructed. May benefit from further PT in the future. Physical Therapy Plan Discharge Physical Therapy Discharge Comments Insurance denial
== END 2019-06-19 12:41 ==
LOC: PHYS 09:00
PROVIDERS: PCP Nurse Practitioner Family; Visit Provider Nurse Practitioner Family
DX: Z98.1 Arthrodesis status (principal)
CPT/HCPCS: 64550; 97010; 97014; 97110; 97113; 97140; 97162; 97164; 97535; G0283

== ENCOUNTER 2020-03-06 08:15 | Outpatient (RCR) | payer OTHER, SELFPAY ==
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
--- NOTE | 2019-05-29 17:55 | PT.OPPOC ---
Current Diagnoses Right temporomandibular joint disorder, unspecified (05/29/19) Left temporomandibular joint disorder, unspecified (05/29/19) Cervical disc disorder at C5-C6 level with radiculopathy (05/29/19) Other cervical disc displacement at C5-C6 level (05/29/19) Abnormal posture (05/29/19) Headache (05/29/19) Weakness (05/29/19) Visit Care Team Role Provider Type Kelsey Middleton Primary Care Provider Non-Staff Specialty: Nursing Address: [address] [place] [address], [address], [place], [address] Email: Attending Provider Specialty: Address: Phone: Fax: Email: Plan Of Care PT-OP-T Assessment and Plan Start: 05/29/19 14:13 Freq: Status: Active Protocol: Document 05/29/19 16:50 [facility] (Rec: 05/29/19 19:12 [facility] [id number]) Physical Therapy Assessment Rehab Potential Rehabilitation Potential Good Evaluation Complexity Number of Personal Factors/Comorbidities 3 or More Number of Body Systems Impaired 4 or More Clinical Presentation at Evaluation Evolving Impairments Impairments Activity Tolerance,Functional Activities,Functional Mobility ,Pain,Posture,ROM,Soft Tissue Mobility,Strength Goals 5 Short Term Goal (STG) Pt will be indep with HEP STG Duration 06/29/19 Pre Algebra Teacher Goal (LTG) Pt will be able to open and close mouth to 40 mm without inc pain or curve to allow greater ease for activities like eating. LTG Duration 07/29/19 4 Senior Living Goal (LTG) Pt will be able to eat all typical daily foods without inc pain greater than 2/10 LTG Duration 07/29/19 3 Short Term Goal (STG) Pt will report no resting jaw pain. STG Duration 06/30/19 Senior Living Goal (LTG) Pt will dec ESPINOSA & jaw pain to no greater than 2/10 on a daily basis with all activities. LTG Duration 07/30/19 Assessment Summary Assessment Pt presents with B TMD with pain that sometimes increases enough to create a ESPINOSA. Pt has impaired posture, impaired jaw motion and resting jaw position, and excessive tightness of jaw closing mm. He would benefit from skilled PT to address these issues and improve his ability to open/ close his mouth and eat without pain & dec instances of ESPINOSA. Physical Therapy Plan Therapeutic Interventions Therapeutic Interventions Home Exercise Program,Joint Mobilizations,Manual Therapy, Neuromuscular Re-education, Patient/Caregiver Education, Self-Care/Home Management,Soft Tissue Mobilization,Taping, Therapeutic Activities, Therapeutic Exercises Modalities Cold Pack/Ice Massage,Hot Packs Next Visit Focus/Plan Next Note Type Treatment Note Next Visit Plan rocobado 6x6, postural edu, STM to cranium & jaw Plan of Care Dates Plan of Care Start Date 04/19/19 Plan of Care End Date 06/19/19
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
--- NOTE | 2019-06-19 09:00 | PT-OP ANOTE ---
Pt called less than 24 hr notice at 0710 am, has had a cold/cough all weekend thought shouldn't attend today and get anyone else sick. FINGERPRINTER called patient and reminded next appt 06/21 at 9am with verbal confirmation.
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
--- NOTE | 2019-09-21 12:59 | PT.OPPOC ---
Physical, Occupational & Speech Therapy At [facility] Current Diagnoses Right temporomandibular joint disorder, unspecified (09/21/19) Left temporomandibular joint disorder, unspecified (09/21/19) Cervical disc disorder at C5-C6 level with radiculopathy (09/21/19) Other cervical disc displacement at C5-C6 level (09/21/19) Abnormal posture (09/21/19) Headache (09/21/19) Weakness (09/21/19) Visit Care Team Role Provider Type Kelsey Middleton Primary Care Provider Non-Staff Specialty: Nursing Address: [address] [place] [address], [address], [place], [address] Email: Attending Provider Specialty: Address: Phone: Fax: Email: Plan Of Care PT-OP-T Assessment and Plan Start: 05/29/19 14:13 Freq: Status: Active Protocol: Document 09/21/19 09:46 [facility] (Rec: 09/21/19 12:58 [facility] [id number]) Physical Therapy Assessment Goals 5 Short Term Goal (STG) Pt will be indep with HEP STG Duration achieved - progressign as needed Motorcycle Builder Goal (LTG) Pt will be able to open and close mouth to 40 mm without inc pain or curve to allow greater ease for activities like eating. 07/19/19 - mostly achieved - pt is able to open his mouth to 41 mm, but is still getting an increase in pain 09/21-less but PT visits have been less consistant LTG Duration 11/20/19 4 Motorcycle Builder Goal (LTG) Pt will be able to eat all typical daily foods without inc pain greater than 2/10 07/19/19 - 11/09 (improved from 02/08) 09/21-Pt able to eat most foods on his elimatination diet at this time without pain but not eating some of his favorite foods but they still cause pain (hard veg & nuts) LTG Duration 11/20/19 3 Short Term Goal (STG) Pt will report no resting jaw pain. STG Duration achieved Motorcycle Builder Goal (LTG) Pt will dec ESPINOSA & jaw pain to no greater than 2/10 on a daily basis with all activities. 07/19/20 - pt continues to have jaw pain with eating 11/09 09/21-Pt reports mostly 3/10 recently & ESPINOSA a couple times a week & has tinnitus LTG Duration 11/20/19 2 Motorcycle Builder Goal (LTG) pt will be able to do all neck movements without exacerbation of jaw pain greater than 2/10. LTG Duration achieved Assessment Summary Assessment Pt did well with treatment today and was able to through exercises with min cueing. He is improving with symptoms but cont to have difficulty with harder foods. Physical Therapy Plan Frequency and Duration Frequency of Treatment 1-2x/week Duration of Treatment 2 months Plan of Care Start Date 09/21/19 Plan of Care End Date 11/20/19 Therapeutic Interventions Therapeutic Interventions Home Exercise Program,Joint Mobilizations,Manual Therapy, Neuromuscular Re-education, Patient/Caregiver Education, Self-Care/Home Management,Soft Tissue Mobilization,Taping, Therapeutic Activities, Therapeutic Exercises Modalities Cold Pack/Ice Massage,Hot Packs Next Visit Focus/Plan Next Note Type Treatment Note Next Visit Plan work on cont postural stability with TMJ positioning [ End ] Plan of Care Dates Plan of Care Start Date 09/21/19 Plan of Care End Date 11/20/19 Electronically Signed by: Reyna Mosqueda, PT 09/21/19 [id number] Please Sign and Return: I have reviewed this Plan of Care and certify that the skilled therapy services above are required to meet the patient?s needs. Physician Signature Date Printed Name and Credentials Clinical Instructor Signature Printed Name and Credentials
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
--- NOTE | 2020-02-20 09:03 | PT.OPPOC ---
Physical, Occupational & Speech Therapy At [facility] Current Diagnoses Right temporomandibular joint disorder, unspecified (02/20/20) Cervical disc disorder at C5-C6 level with radiculopathy (02/20/20) Other cervical disc displacement at C5-C6 level (02/20/20) Abnormal posture (02/20/20) Headache (02/20/20) Weakness (02/20/20) Visit Care Team Role Provider Type Kelsey Middleton Primary Care Provider Non-Staff Specialty: Nursing Address: [address] [place] [address], [address], [place], [address] Email: Attending Provider Specialty: Address: Phone: Fax: Email: Plan Of Care PT-OP-T Assessment and Plan Start: 05/29/19 14:13 Freq: Status: Active Protocol: Document 02/20/20 08:14 [facility] (Rec: 02/20/20 09:03 [facility] [id number]) Physical Therapy Assessment Goals 5 Short Term Goal (STG) Pt will be indep with HEP STG Duration achieved - progressign as needed Service Desk Technician Goal (LTG) Pt will be able to open and close mouth to 40 mm without inc pain or curve to allow greater ease for activities like eating. 07/19/19 - mostly achieved - pt is able to open his mouth to 41 mm, but is still getting an increase in pain 09/21-less but PT visits have been less consistant LTG Duration 04/22/20 4 Retirement Goal (LTG) Pt will be able to eat all typical daily foods without inc pain greater than 09/1107/19/19 - 11/09 (improved from 02/08) 09/21-Pt able to eat most foods on his elimatination diet at this time without pain but not eating some of his favorite foods but they still cause pain (hard veg & nuts) 02/19-5-01/09 with eating all foods LTG Duration 04/22/20 3 Short Term Goal (STG) Pt will report no resting jaw pain. 02/19-restarted goal d/t pain occasionally with resting/ driving STG Duration 03/22/20 Retirement Goal (LTG) Pt will dec ESPINOSA & jaw pain to no greater than 2/10 on a daily basis with all activities. 07/19/20 - pt continues to have jaw pain with eating 11/09 09/21-Pt reports mostly 3/10 recently & ESPINOSA a couple times a week & has tinnitus 02/19- ESPINOSA 5 days a week 6-02/08 LTG Duration 04/22/20 2 Retirement Goal (LTG) pt will be able to do all neck movements without exacerbation of jaw pain greater than 2/10. LTG Duration achieved Assessment Summary Assessment Pt is doing worse at this time , but has not attended PT since October 17. He reports compliance with HEP but some adjustments had to be made for exercises to improve his form . He has signfiicant R side tightness and has maintaining ROM but is still have difficulty with pain. Pt would benefit from cont PT to work on dec pain. Physical Therapy Plan Frequency and Duration Frequency of Treatment 1x/Week Duration of Treatment 2 months Plan of Care Start Date 02/20/20 Plan of Care End Date 04/22/20 Next Visit Focus/Plan Next Note Type Treatment Note Next Visit Plan work on cont postural stability with TMJ positioning and work on inf jaw and throat structures to allow for full jaw opening w/out feeling like choking [ End ] Plan of Care Dates Plan of Care Start Date 02/20/20 Plan of Care End Date 04/22/20 Electronically Signed by: Reyna Mosqueda, PT 02/20/20 0903 Please Sign and Return: I have reviewed this Plan of Care and certify that the skilled therapy services above are required to meet the patient?s needs. Physician Signature Date Printed Name and Credentials Clinical Instructor Signature Printed Name and Credentials
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
== END 2020-03-07 12:38 ==
LOC: PHYS 08:15
PROVIDERS: PCP Registered Nurse
DX: M26.601 Right temporomandibular joint disorder, unspecified (principal); M50.122 Cervical disc disorder at C5-C6 level with radiculopathy; M50.222 Other cervical disc displacement at C5-C6 level; R53.1 Weakness; R29.3 Abnormal posture; R51 Headache
CPT/HCPCS: 97110; 97140; 97162; 97535

== ENCOUNTER → 2021-02-12 13:30 | Outpatient (CLI) | payer OTHER, SELFPAY ==
--- NOTE | 2021-02-12 | DI.CT.S_ITS ---
PROCEDURE: CT ABDOMEN PELVIS W CON INDICATIONS: Cystic mass R hemipelvis TECHNIQUE: After the administration of oral and intravenous contrast, axial sections were acquired from the lung bases to the pubic symphysis. Coronal and sagittal reformats were performed. For radiation dose reduction, the following was used: automated exposure control, adjustment of mA and/or kV according to patient size. COMPARISON:[facility], CT, ABDOMEN/PELVIS WITH CONTRAST, 10/25/2010, 12:16. FINDINGS: Image quality: Excellent. Lung bases: Unremarkable. Heart: Mild coronary artery calcifications. Normal heart size. ABDOMEN: Liver: Unremarkable. Gallbladder: Unremarkable. Biliary ducts: Unremarkable. Pancreas: Unremarkable. Spleen: Unremarkable. Adrenal Glands: Unremarkable. Kidneys and Ureters: Unremarkable. Stomach and Bowel: Sigmoid diverticulosis without evidence of diverticulitis. No dilated or thickened bowel loops. Normal appendix. Moderate fecal debris. Peritoneum: No abnormal intraperitoneal fluid. No free air. Ventral Wall: No hernia. Abdominal Nodes: No retroperitoneal or mesenteric adenopathy by size criteria. Vessels: Aorta and inferior vena cava are normal in size. PELVIS: Pelvic Organs: Unremarkable. A cystic structure in the right hemipelvis hiding the sidewall measuring 7.9 x 3.2 cm is part of a penile prosthesis. There are no suspicious pelvic masses noted. Bladder: Unremarkable. Pelvic Nodes: No enlarged lymph nodes. Miscellaneous: No inguinal hernias are seen. Bones: Lumbar degenerative change. IMPRESSION: 1. The cystic structure in the right hemipelvis is part of a penile prosthesis. 2. No evidence of acute abdominal process. 3. Sigmoid diverticulosis. Dictated by: Angel Montaño M.D. on 02/12/2021 at 15:04 Approved by: Angel Montaño M.D. on 02/12/2021 at 15:07
[2021-02-12 14:00] LABS: BUN Creatinine Ratio 17.9 (6-22); Blood Urea Nitrogen 14 mg/dL (9-20); Estimated Glomerular Filt Rate > 60.0 mL/min (>60)
== END ==
PROVIDERS: PCP Registered Nurse; Referring Provider Registered Nurse; Visit Provider Registered Nurse
DX: R19.09 Other intra-abdominal and pelvic swelling, mass and lump (principal); K57.30 Diverticulosis of large intestine without perforation or abscess without bleeding; I25.10 Atherosclerotic heart disease of native coronary artery without angina pectoris; E11.9 Type 2 diabetes mellitus without complications; Z96.0 Presence of urogenital implants
CPT/HCPCS: 36415; 74177; 82565; 84520; Q9967